=== PATIENT | female | born 1985 | race Asian ===

== ENCOUNTER 2024-03-18 07:47 | Outpatient (AMB) | payer OTHER, SELFPAY ==
[2024-03-18 08:01] VITALS: BP 116/84; PULSE 80; O2SAT 99; BMI 25.4
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
== END 2024-03-18 08:46 | disposition home or self-care (01) ==
DX: J45.909 Unspecified asthma, uncomplicated (principal); R20.0 Anesthesia of skin; R20.2 Paresthesia of skin; M54.9 Dorsalgia, unspecified; N92.0 Excessive and frequent menstruation with regular cycle
CPT/HCPCS: 99203

== ENCOUNTER 2024-03-19 07:47 | Outpatient (REF) | payer OTHER, SELFPAY ==
--- NOTE | ~2024-03-19 | XR_ITS ---
EXAMINATION: XR LUMBOSACRAL SPINE CLINICAL INFORMATION: Back pain. COMPARISON: None available. TECHNIQUE: Three views of the lumbosacral spine. FINDINGS: The vertebral bodies and posterior elements are normal. The disc spaces are preserved and the vertebral alignment is normal. The paraspinal soft tissues are normal. XR/XR lumbar spine 2-3V IMPRESSION: Unremarkable examination.
[2024-03-19 08:01] LABS: MANUAL DIFF FLAG NO
[2024-03-19 08:33] LABS: Basophils Absolute Auto 0.1 X10*3/uL (0.0-0.2); Basophils Percent Auto 1.2 % (0-2); Eosinophils Absolute Auto 0.3 X10*3/uL (0.0-0.4); Eosinophils Percent Auto 5.3 % (0-4); Hematocrit 39.8 % (37.0-47.0); Hemoglobin 13.6 g/dl (12.0-16.0); Imm Gran Abs Auto 0.01 X10*3/uL (0.00-0.03); Imm Gran Pct Auto 0.2 % (0.0-0.4); Lymphocytes Absolute Auto 2.7 X10*3/uL (1.2-4.9); Lymphocytes Percent Auto 45.9 % (20-40); Mean Corpuscular HGB Conc 34.2 g/dl (31.0-35.0); Mean Corpuscular Volume 87.9 fL (80.0-98.0); Mean Platelet Volume 8.1 fL (9.4-12.3); Monocytes Absolute Auto 0.4 X10*3/uL (0.1-1.2); Neutrophils Absolute Auto 2.4 x10*3/uL (2.0-8.3); Neutrophils Percent Auto 41.4 % (45-73); Platelet Count 325 X10*3/uL (160-400); Red Blood Count 4.53 X10*6/uL (4.20-5.50); Red Cell Distribution Width 11.9 % (11.0-16.0); White Blood Count 5.9 X10*3/uL (4.8-10.8)
[2024-03-19 09:04] LABS: Alanine Aminotransferase 18 U/L (0-31); Albumin Level 4.4 g/dL (3.5-5.0); Alkaline Phosphatase 44 U/L (39-117); Anion Gap 12 (12-20); Aspartate Amino Transferase 21 U/L (5-31); Bilirubin Total 0.4 mg/dL (0.0-1.0); Blood Urea Nitrogen 13 mg/dL (9-16); Calcium 8.9 mg/dL (8.4-10.2); Carbon Dioxide 23 mmol/L (22-29); Chloride 109 mmol/L (96-108); Cholesterol 175 mg/dL (<200); Estimated Glomerular Filt Rate > 60; Glucose Random 93 mg/dL (60-115); HDL Cholesterol 58 mg/dL (>40); LDL Cholesterol Calculated 106 mg/dL (<100); Potassium 3.7 mmol/L (3.3-5.1); Sodium 140 mmol/L (135-145); Total Protein 7.3 g/dL (6.5-8.0); Triglycerides 59 mg/dL (<150)
[2024-03-19 09:34] LABS: Folate 10.4 ng/mL (> or = 4.0); Vitamin B12 565 pg/mL (200-900)
[2024-03-19 09:45] LABS: Free T4 (Free Thyroxine) 0.99 ng/dL (0.71-1.85); Thyroid Stimulating Hormone 1.61 uIU/mL (0.32-4.0)
[2024-03-25 13:58] LABS: Vitamin D 25-OH, D2 <4 ng/mL; Vitamin D 25-OH, D3 18 ng/mL; Vitamin D 25-OH, Total 18 ng/mL (30-100)
== END 2024-03-19 07:48 | disposition home or self-care (01) ==
LOC: HO.XRAY 07:47
DX: Z00.00 Encounter for general adult medical examination without abnormal findings (principal); M54.9 Dorsalgia, unspecified
CPT/HCPCS: 36415; 72100; 80053; 80061; 82306; 82607; 82746; 84439; 84443; 85025

== ENCOUNTER 2024-04-13 11:19 | Outpatient (AMB) | payer OTHER, SELFPAY ==
[2024-04-13 12:00] VITALS: BP 126/70; BMI 26.2
--- NOTE | 2024-04-13 12:00 | A.OFFVIS_ITS ---
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 Resource Officer Required: No Information Interpreted: clinical only Business Intelligence Director: Business Intelligence Director Present Allergies house dust Allergy (Intermediate, Verified 04/13/24 12:01) Hives shellfish derived Allergy (Mild, Verified 04/13/24 12:01) Hives Medication List - Last Reconciled 04/13/24 by Flor Shaffer CNM albuterol sulfate 90 mcg/actuation 1 inh inhalation QID PRN beclomethasone dipropionate 40 mcg/actuation (Qvar RediHaler) 1 inh inhalation BID cholecalciferol (vitamin D3) 20 mcg (2 x 10 mcg (400 unit)) PO DAILY 30 days Is last menstrual period known: Yes Last menstrual period: 04/10/24 Do you need a note to return to daycare/school/sports/work: No HPI HPI 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 She has moved around world several places she was from the [facility] originally she lived in [facility] for a number of years then she was in different places in the [facility] they almost moved to [place] as well. She is here with her who wanted to be in the visit and was requested to wait outside. She cites a history of having had various surgeries in her life she said when she was young she and her boyfriend were using toys and she caught some infection and she was in the hospital for a while and she later had surgery when she was in [facility] that removed her right tube because there was infection and a cyst that had done something on the right side and then later when she was in [place] she had another surgery with a another doctor who said that there was evidence of past major infection and her left tube was removed. She would like to have a baby. They have moved here to help care for her 's mother. She was wondering what she could do to get and could she carry a baby and they were thinking of going back to the [facility] to an infertility clinic there that [place] couples go through. She said she has always had pain with intercourse all her life and her periods have while they been regular started to have more brown spotting at the end and this period was more crampy than usual. she is almost at the tail end of her period now. I insisted on seeing the patient alone and I asked her very directly if she was safe and she informed me that she was. [facility] Medical History (Updated 04/13/24 @ 13:18 by Flor Shaffer CNM) Asthma Surgical History (Updated 04/13/24 @ 13:18 by Flor Shaffer CNM) History of tubal ligation S/P removal of right ovary History of removal of cyst Family History Mother Heart disease Maternal Aunt Heart disease Paternal Uncle Lung cancer Social History Housing: House Patient Tobacco Use Status: Never used Tobacco service: No Current occupational status: employed Current occupation: Cognitive needs: No Hearing needs: No Vision needs: No Female Reproductive History Menstrual Age of Menarche: 14 Date of last menstrual period: 04/10/24 control method: permanent sterilization Total pregnancies: 0 History of abnormal pap smear: No (previous pap neg per patient,3 yrs ago) Physical Exam Vital Signs: Last Vital Signs BP 126/70 04/13/24 12:00 BMI result Body Mass Index 26.2 Const General: healthy appearing, comfortable, no acute distress, well developed and alert Nutritional Appearance: average body habitus Orientation/consciousness: patient oriented x3 Limitations: no limitations HEENT Head: Yes normocephalic Neck Neck: Yes normal visual inspection Chest Chest palpation & inspection: normal inspection of the chest Breast/axilla inspection: normal inspection of the breasts and normal inspection of the axillae Breast/axilla palpation: normal palpation of the breasts and normal palpation of the axillae Resp Effort & Inspection: normal respiratory effort GI Inspection: Yes normal to inspection, No Abdominal wall edema and No distended Palpation (GI): Soft to palpation and nontender Other: External exam within normal limits vagina pink and moist healthy appearing with very end of menses brown spotting. Cervix nulliparous pink smooth healthy mobile nontender Uterus is small retroverted mobile nontender adnexa not palpable but not enlarged good tone with Kegel General: Yes bladder normal to palpation External Female Exam: normal external appearance and normal appearance of the urethra Speculum Exam - Vagina: normal appearance of the vagina, normal palpation and normal vaginal discharge Speculum Exam - Cervix: normal appearance of the cervix, normal palpation and nontender Bimanual exam- vagina & uterus: normal bimanual exam, normal palpation, uterine size normal, bladder normal to palpation, consistency normal, normal palpation, uterine mobility normal, uterine shape normal, No Cervical tenderness present, non-tender and no cervical motion tenderness Bimanual Exam- Adnexa, other: normal adnexae, no masses, normal and No adnexal tenderness Neuro General: patient oriented x3 Assessment & Plan Assessment & Plan (1) Hx of bilateral salpingectomy: Comment: Right 2 and ovary removed in career years ago, then left to removed in [place] more recently a couple of years ago. Code(s): Z90.79 - Acquired absence of other genital organ(s) Category: Surgical (2) Hx of unilateral oophorectomy: Comment: Patient says her right to and right ovary were removed in [place] some years ago after multiple visits.. Code(s): Z90.721 - Acquired absence of ovaries, unilateral Category: Surgical (3) Patient desires : Comment: Sites regular cycles history of removal of both tubes for various reasons history of probable infections since she was young that infected tubes, Patient has her left ovary, seeking considering infertility clinic in [facility]. 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 Patient is comfortable with sex and exam. 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 Explained to patient and analisa picture. Code(s): N94.10 - Unspecified dyspareunia Category: Medical Plan -----Discussed in this visit the following: healthy balanced diet, regular and consistent exercise, getting recommended health screens, doing the best she can for her particular health concerns, kegel exercises, pap smear screening and followup recommendations, mammography screening and SBE, normal changes in cycles in her life stage--- . I recommend to the patient that she keep very careful track of her cycles and also explained the symptoms ovulation which she was aware of but did not understand it significance. She is sure to me that she was safe in the relationship and she wants to have a baby. Discussed the dyspareunia and the possible connection to retroverted uterus that is not necessarily a problem but just needs to be worked around.. I recommended to her that she take a multivitamin with folic acid every day. In preparation for potential future . For her future infertility care that she will be seeking I recommend she keep very careful track of the records so she can bring them with them to the [facility]. Pap smear was done as well as testing for other STIs. Mammograms would start at age 40. Coding Level of Care Code New Pt Prev Care 18-39yr([id number] Diagnoses Hx of bilateral salpingectomy Z90.79 Hx of unilateral oophorectomy Z90.721 Patient desires Z31.9 Dyspareunia, female N94.10
== END 2024-04-13 13:17 | disposition home or self-care (01) ==
LOC: HO.HWSM 11:19
PROVIDERS: Visit Provider Advanced Practice Midwife
DX: Z01.419 Encounter for gynecological examination (general) (routine) without abnormal findings (principal); N94.10 Unspecified dyspareunia
CPT/HCPCS: 99385

== ENCOUNTER 2024-04-13 11:19 | Outpatient (REF) | payer OTHER, SELFPAY ==
[2024-04-14 03:43] LABS: CT PCR NOT DETECTED (Not Detect.); NG PCR NOT DETECTED (Not Detect.)
[2024-04-14 10:34] LABS: Bacterial Vaginosis PCR NEGATIVE (Negative); Candida Group PCR NOT DETECTED (Not Detect); Candida glab krusei PCR NOT DETECTED (Not Detect); Trichomonas vaginalis PCR NOT DETECTED (Not Detect)
[2024-04-16 10:03] LABS: HPV mRNA E6/E7 Not Detected (Not Detected)
== END 2024-04-13 11:20 | disposition home or self-care (01) ==
LOC: HO.LAB 11:19
PROVIDERS: Visit Provider Advanced Practice Midwife
DX: Z12.4 Encounter for screening for malignant neoplasm of cervix (principal); Z11.51 Encounter for screening for human papillomavirus (HPV); N89.8 Other specified noninflammatory disorders of vagina
CPT/HCPCS: 0352U; 36415; 87491; 87591; 87624; 88175

== ENCOUNTER 2024-05-24 13:00 | Outpatient (RCR) | payer OTHER, SELFPAY ==
--- NOTE | 2024-05-14 11:31 | MHC.PT.EP ---
[facility] [place] Office [place] Office [place] Office [address] [phone] F: [phone] F: [phone] F: [phone] F: [phone] Physical Therapy Plan of Care Date of Evaluation: 05/14/24 Date of Surgery: Diagnosis: low back pain Assessment: Patient is a 38 year old R handed female who presents with s/s consistent with low back pain. She works with daily job demands including [employer] employee doing heavier lifting at times. Patient past medical history includes 2 foot surgeries. Current impairments include pain, posture, ROM, strength, flexibility, activity tolerance and functional mobility. Functional limitations include decreased ability to walk, bend, lift and squat. Patient is motivated with good rehab potential. Skilled PT will address impairments and functional limitations in order to achieve goals. Frequency and Duration: The patient will be seen 1x/week for 5 weeks Short Term Goals: I with HEP - 2 weeks AROM rotation 100% and pain free - 3 weeks s/s centralized - 3 weeks Wood Treating Inspector Goals: TTP absent - 5 weeks Max pain with ADLs 1/10 - 5 weeks Oswestry 4% or less -5 weeks Treatment Plan: Modalities to reduce pain, spasms and effusion. Manual therapy to restore motion and function. Therapeutic exercise to improve strength and flexibility. Neuromuscular re-education for posture and balance. Therapeutic activities to return to functional activities of daily living. Electronically signed by: Tal Ocampo PT Please sign and return to therapist. Thank you for your referral.
--- NOTE | 2024-11-12 10:54 | MHC.PT.DC ---
[facility] [place] [facility] [place] Office [place] Office [address] Mariela Wadsworth [address] [phone] F: [phone] F: [phone] F: [phone] F: [phone] Physical Therapy Discharge Report Diagnosis: low back pain Date of Surgery: Date of Evaluation: 05/14/24 Date of Discharge: Treatments to Date: 3 Cancellations to Date: No Shows to Date: Discharge Status: Independent with HEP Discharge Summary: 05/24/24: pt compliant with HEP. reviewed and all questions answered. she is leaving for the [facility] tomorrow and will be d/c to HEP at this time. 05/21/24: pt progressing well with skilled PT. no adverse reactions. we issued HEP and will re-assess on Friday ahead of departure to [facility]. Patient is a 38 year old R handed female who presents with s/s consistent with low back pain. She works with daily job demands including [employer] employee doing heavier lifting at times. Patient past medical history includes 2 foot surgeries. Current impairments include pain, posture, ROM, strength, flexibility, activity tolerance and functional mobility. Functional limitations include decreased ability to walk, bend, lift and squat. Patient is motivated with good rehab potential. Skilled PT will address impairments and functional limitations in order to achieve goals. Electronically signed by: Tal Ocampo, PT Please sign and return to therapist. Thank you for your referral.
== END 2024-11-12 10:57 | disposition home or self-care (01) ==
LOC: HO.PTCHIC 13:00
DX: M54.9 Dorsalgia, unspecified (principal)
CPT/HCPCS: 97110; 97162

== ENCOUNTER 2024-09-03 08:36 | Outpatient (AMB) | payer OTHER, SELFPAY ==
--- OUTSIDE RECORDS SUMMARY | 2024-09-03 08:45 | XMS_ITS ---
Author Organization [facility] Address [address] [address] Care Team Providers Care Vice Principal Name Role Phone ENID MCLEOD [phone] Medications Medication SIG (Take, Route, Frequency, Duration) Notes Start Date End Date Status Nitrofurantoin Monohyd Macro 100 MG 1 capsule Orally TWICE A DAY for 5 days 08/26/2023 Active Encounters Encounter Location Date Provider Diagnosis [facility] [address] [place] [address] 08/27/2023 ENID MCLEOD Dysuria R30.0 Assessments Encounter Date Diagnosis (ICD Code) Assessment Notes Treatment Notes Treatment Clinical Notes Section Notes 08/27/2023 Dysuria (ICD-10 - R30.0) Plan Of Treatment Medication Medication Name Sig Start Date Stop Date Notes Nitrofurantoin Monohyd Macro 100 MG 1 capsule Orally TWICE A DAY for 5 days 08/26/2023 Progress Notes * Dionna SALEHLyndaOB:[birth year] (37 yo F)Acc No.[id number]:08/27/2023 Patient:?Dionna Salehn :1985???Age:37 Y???Sex:Female Phone: Address:[place] [address] * Refills? Continue Nitrofurantoin Monohyd Macro Capsule, 100 MG, Orally, 10 Capsule, 1 capsule, TWICE A DAY, 5 days, Refills=0 * true * Date:? Generated for Chavo castro/Erasmo/eTransmitting on:?09/03/2024 08:45 AM EST
--- OUTSIDE RECORDS SUMMARY | 2024-09-03 08:46 | XMS_ITS ---
Author Organization [facility] Address [address] [place] [address] Care Team Providers Care Cheesemaker Helper Name Role Phone ENID MCLEOD [phone] Allergies No Known Allergies REASON FOR VISIT RL TO ASYNC + Sexual Health / Urinary Medications Medication SIG (Take, Route, Frequency, Duration) Notes Start Date End Date Status Nitrofurantoin Monohyd Macro 100 MG 1 capsule Orally TWICE A DAY for 5 days 08/26/2023 Active Montelukast Sodium 5 MG as directed Orally Active Social History Tobacco Use: Social History Observation Description Date Details (start date - stop date) Never Smoker NA - NA Tobacco Use/Smoking Question Answer Notes Are you a nonsmoker Vital Signs Height 60 in 08/26/2023 Weight 131 lbs 08/26/2023 BMI 25.58 kg/m2 08/26/2023 Patient Reported Normal Bloo d PresurePatient Reported Normal Temperature Encounters Encounter Location Date Provider Diagnosis [facility] [address] [place] [address] 08/26/2023 ENID CARCAMOCASTILLO Dysuria R30.0 Assessments Encounter Date Diagnosis (ICD Code) Assessment Notes Treatment Notes Treatment Clinical Notes Section Notes 08/26/2023 Dysuria (ICD-10 - R30.0) You may have urinary symptoms due to a Urinary Tract Infection, it is recommended to complete the urinalysis and start the antibiotic. Increase your fluid intake. If there is no improvement follow up in person for physical examination and further testing if symptoms worsen go to the ER. 08/26/2023 Other Follow the treatment plan as indicated by the provider. Take any medications as prescribed. If you have any questions about your prescription, ask the pharmacist or call our office. If your condition worsens, return to one of our local offices ([facility]), or go to the ER. Failure to seek timely care can result in , or disability. Risks, benefits, and side effects of medications (if any) discussed with patient. Patient agrees with treatment plan. The patient's condition was stable at the end of this televisit. Plan Of Treatment Medication Medication Name Sig Start Date Stop Date Notes Nitrofurantoin Monohyd Macro 100 MG 1 capsule Orally TWICE A DAY for 5 days 08/26/2023 Treatment Notes Assessment Notes Dysuria You may have urinary symptoms due to a Urinary Tract Infection, it is recommended to complete the urinalysis and start the antibiotic. Increase your fluid intake. If there is no improvement follow up in person for physical examination and further testing if symptoms worsen go to the ER. Other Follow the treatment plan as indicated by the provider. Take any medications as prescribed. If you have any questions about your prescription, ask the pharmacist or call our office. If your condition worsens, return to one of our local offices ([facility]), or go to the ER. Failure to seek timely care can result in , or disability. Pending Test Test Name Order Date URINALYSIS, COMPLETE W/REFLEX TO CULTURE (9769) 08/26/2023 Next Appt Details Follow Up: PCP, Reason: Progress Notes * Juancarlos SALEHAbdullhaiOB:[birth year] (37 yo F)Acc No.[id number]:08/26/2023 Patient:Candi Martinez Provider:?ENID MCLEOD MD :1985???Age:37 Y???Sex:Female D ate:08/26/2023 Phone: Address:[facility] [address], [facility], [id number] Subjective: * Chief Complaints: * ???RL TO MW ASYNC + Sexual H ealth / Urinary * HPI: ???TeleVisit Consent:? Patient's identification was confirmed and they were instructed that this visit is based on visual, audio information in addition to previous medical notes and diagnostics. As well it relies on the patient for information related to their physical well being, diagnosis and treatment. The patient acknowledges that they are not being recorded today, and they do not have permission to record this visit either. Patient verbalized understanding to all of the above. ???Constitutional:?Denies?night sweats, unexplained weight loss, fevers, dizziness, chest pain, lymph node swelling, snoring, depression, or insomnia.?TeleHealth Complaint History:? 37 year-old female, not , presents with mild pain when passing urine for a duration of 1 days. ?Medical History: Asthma and urinary tract infection. ?Medications: Montelukast 5mg Every other day. * ROS:?All Other Systems:?Review of Systems (ROS)?See HPI for details.?The patient is also suffering from flank pain (severity mild, duration 1 days, onset sudden, relative site unilateral, progression staying the same, dull, clinical course continual and not radiating to inguinal region), backache (severity moderate, duration 2 months, location lower back, upper back, onset gradual and not radiating to inguinal region), abdominal pain (severity moderate, duration 1 days, location general diffuse abdomen, onset sudden, sharp and relieved by lying on back), nausea (duration 1 weeks), pelvic pain (severity moderate), urgency to pass urine and chills. The patient denies the following: vomiting, bloody, or reddish colored urine and vaginal discharge. * Medical History:? * Surgical History:?Denies Pas t Surgical History * Hospitalization/Major Diagno stic Procedure:?Denies Past Hospitalization * Family History:? deniesDiabetic: Parent. * Social History:?Tobacco Use:?Tobacco Use/Smoking?Are you a?nonsmoker ???Drugs/Alcohol:?Do you drink alcohol?: No. * Medications:?TakingMonteluka st Sodium 5 MG Tablet Chewable as directed Orally Medication List reviewed and reconciled with the patientTaking Montelukast Sodium 5 MG Tablet Chewable as directed Orally Medication List reviewed and reconciled with the patient * Allergies:?N.K.D.A.no[Allerg ies Verified] Objective: * Vitals:?Ht: 60 in, Wt:131 lb s, BMI:25.58 Index Patient Reported Normal Blood Presure Patient Reported Normal Temperature. * Examination: ???General Examination: ?GENERAL APPEARANCE:?in no acute distress.?EARS:?hearing grossly intact.?NEUROLOGIC:?alert and oriented , speech clear.?PSYCH:?mood/affect normal, understands directions.? Assessment: * Assessment: 1.?Dysuria - R30.0 (Primary) ? Plan: * Treatment: 2.?Others? Notes: Follow the treatment plan as indicated by the provider. Take any medications as prescribed. If you have any questions about your prescription, ask the pharmacist or call our office. If your condition worsens, return to one of our local offices ([facility]), or go to the ER. Failure to seek timely care can result in , or disability.?? Clinical Notes:Risks, benefits, and side effects of medications (if any) discussed with patient. Patient agrees with treatment plan. The patient's condition was stable at the end of this televisit.?? * Procedure Codes:?05498 Offic e Visit, Est Pt., Level 2 Virtual Visit, Modifiers: 95 [id number] Office Visit, Est Pt., Level 2, delivered asynchronous, Modifiers: GQ CNFEE Convenience Fee * Follow Up:?PCP * Billing Information: * Visit Code:? S9083 [facility]. 50546 Office Visit, Est Pt., Level 2. Modifiers: GQ * Procedure Codes:? 94069 Office Visit, Est Pt., Level 2 Virtual Visit. Modifiers: 95 75639 Office Visit, Est Pt., Level 2, delivered asynchronous. Modifiers: GQ CNFEE Convenience Fee. Images * CD - -CForm - 08-26 - * Sign off status: Completed true * Provider:?ENID MCLEOD MD Date:?2023 Generated for Chavo castro/Erasmo/Macrina on:?09/03/2024 08:45 AM EST History and Physical Notes * HPI (History of Present Illness) Category Sub-Category Detail Notes Category Not es Constitutional Denies night sweats, un explained weight loss, fevers, dizziness, chest pain, lymph node swelling, snoring, depression, or insomnia TeleHealth Complaint History 37 year-old female, not , presents with mild pain when passing urine for a duration of 1 days. Medical History: Asthma and urinary tract infection. Medications: Montelukast 5mg Every other day. Examination Category Sub-Category Detail Notes Category Not es General Examination GENERAL APPEARANCE: in no acute di stress EARS: hearing grossly inta ct NEUROLOGIC: alert and oriented , speech clear PSYCH: mood/affect normal, understands directions
--- OUTSIDE RECORDS SUMMARY | 2024-09-03 08:46 | XMS_ITS | Patient Health Record ---
Author Organization [facility] Address [address] [place] [address] Support Name Relationship Address Phone Candi Kauffman Guarantor Unknown Unavaila ble Allergies No Known Allergies Reason For Referral No Information Medications Medication SIG (Take, Route, Frequency, Duration) [...] Question Answer Notes Are you a nonsmoker Plan Of Treatment Pending Test Test Name Order Date URINALYSIS, COMPLETE W/REFLEX TO CULTURE (3020) 08/26/2023 Insurance Providers Payer Name Payer Address Payer Phone Subscriber Number Group Number Insured Name Patient Relationship to Insured Coverage Start Date Coverage End Date [employer] [address] [address] [place] [address] [phone] [id number] Candi Pulliam Self - patient is the insured Medical (General) History Medical History History ICD Code Ovarian cysts 8 yrs ago Inactive asthma UTI
--- NOTE | 2024-09-03 08:52 | MHC.PC.OV ---
Vital Signs 09/03/24 08:54 Height 5 ft Weight 139 lb 4 oz BMI 27.2 BP 126/72 Blood Pressure Location Lt brachial Position Sitting Pulse 82 Pulse Source Pulse Oximeter Pulse Oximetry (%) 99 Oxygen Delivery Method Room Air Intake Visit Reasons: PE Intake Note: Patient is here today for a physical. Hcc Coders Required: No Medical Anthropology Director: Not Required per policy Accompanied by: Self / Same As Patient Allergies house dust Allergy (Intermediate, Verified 09/03/24 09:08) Hives shellfish derived Allergy (Mild, Verified 09/03/24 09:08) Hives Medication List - Last Reconciled 09/03/24 by Val Carrillo PA-C albuterol sulfate 90 mcg/actuation 1 inh inhalation QID PRN beclomethasone dipropionate 40 mcg/actuation (Qvar RediHaler) 1 inh PO BID cholecalciferol (vitamin D3) 20 mcg (2 x 10 mcg (400 unit)) PO DAILY 30 days Tobacco use date assessed: 09/03/24 Dental Screening Dental Screen Date: 09/03/24 Did you have a dental visit in the last 12 months?: No Did you have a dental problem in the last 6 months where you did not have access to dental care?: No Was dental information given to patient?: No HPI PE HPI Details 38-year-old female with past medical history of dyspareunia and asthma last seen 02/2024 coming in for annual exam.? In review of the notes patient was seen by [facility] 04/13/2024 for heavy and painful menses recommending multivitamin with folic acid for potential future and Pap smear was completed. Today she tells us she continues to have back pain primarily when lifting heavy objects. She is required to lift boxes that are upwards of 50 lb at her job and after work she will often have back pain that radiates down the right leg and upper back pain that radiates into bilateral arms. She denies any these symptoms at this time and states they typically come and go and worsen with lifting. Denies any chest pains or shortness of breath and does not feel this pain with walking only while lifting objects. She states she stands for long periods of time at work and this pain began when she started her new job. [facility] Medical History (Updated 09/03/24 @ 09:53 by Val Carrillo PA-C) Heavy menses Asthma Surgical History (Updated 09/03/24 @ 09:53 by Val Carrillo PA-C) Hx of bilateral salpingectomy Hx of unilateral oophorectomy S/P foot surgery, left History of tubal ligation S/P removal of right ovary History of removal of cyst Family History Mother Heart disease Maternal Aunt Heart disease Paternal Uncle Lung cancer Social History Housing: House Patient Tobacco Use Status: Never used Tobacco e-Cigarette/Vaping Use: Never Used Second Hand Smoke Exposure: No service: No Current occupational status: employed Current occupation: Cognitive needs: No Hearing needs: No Vision needs: Yes (Glasses) Female Reproductive History Menstrual Age of Menarche: 14 Questionnaire PHQ-9 Over the last 2 weeks, how often have you been bothered by any of the following problems? 1. Little interest or pleasure in doing things: not at all 2. Feeling down, depressed, or hopeless: not at all 3. Trouble falling or staying asleep, or sleeping too much: not at all 4. Feeling tired or having little energy: not at all 5. Poor appetite or overeating: not at all 6. Feeling bad about yourself - or that you are a failure or have let yourself or your family down: not at all 7. Trouble concentrating on things, such as reading the newspaper or watching television: not at all 8. Moving or speaking so slowly that other people could have noticed. Or the opposite - being so fidgety or restless that you have been moving around a lot more than usual: not at all 9. Thoughts that you would be better off or of hurting yourself in some way: not at all Total score: 0 Depression Screening Interpretation: Negative Depression Screening Done: Yes Source: Developed by Drs. Jude Keita, Teri Ellison, Nigel Lamar and colleagues, with an educational yakelin from [employer]. Thrive Questionnaire Date Thrive assessed: 09/03/24 I am a: Patient What is your living situation today?: I have a steady place to live Within the past 12 months, did the food you bought not last and you didn't have the money to get more?: I choose not to answer this question Within the past 12 months, did you worry whether your food would run out before you got money to buy more?: I choose not to answer this question Do you have trouble paying for medicines?: I choose not to answer this question Do you have trouble getting transportation to medical appointments?: No Do you have trouble paying your heating and electricity bill?: I choose not to answer this question Do you have trouble taking care of your child, family member or friend?: No Do you have trouble with day-to-day activities such as bathing, preparing meals, shopping, managing finances, etc.?: No Are you currently unemployed and looking for a job?: No Are you interested in more education?: No Please select the resources that you would like help with: None Currently or been in a relationship where the following occur: No concerns reported THRIVE Score: 0 AUDIT C Alcohol Use Questionnaire (AUDIT-C) 1. How often do you have a drink containing alcohol?: Monthly or less 2. How many drinks containing alcohol do you have on a typical day when you are drinking?: 1 or 2 3. How often do you have six or more drinks on one occasion?: Never Total Score: 1 SELMA-7 AMB Questionnaire SELMA-7 Date SELMA - 7 assessed: 09/03/24 Feeling nervous, anxious, or on edge: 0 = Not at all Not being able to stop or control worryin = Not at all Worrying too much about different things: 0 = Not at all Trouble relaxin = Not at all Being so restless that it is hard to sit still: 0 = Not at all Becoming easily annoyed or irritable: 0 = Not at all Feeling afraid as if something awful might happen: 0 = Not at all Total SELMA-7 score (0-4 normal; 5-9 mild; 10-14 moderate; 15-21 severe): 0 Source: Developed by Drs. Jude Keita, Teri Ellison, Nigel Lamar and colleagues, with an educational yakelin from [employer]. Review of Systems Const Denies body aches, Denies chills, Denies fever(s), Denies headache(s) and Denies poor appetite Eyes Reports no additional complaints ENT Denies dysphagia, Denies dizziness, Denies headache(s) and Denies odynophagia Card Denies chest pain, Denies syncope, Denies edema, Denies irregular heart rhythm, Denies lightheadedness and Denies dyspnea Resp Denies cough and Denies dyspnea GI Denies abdominal pain, Denies constipation, Denies dysphagia, Denies diarrhea, Denies nausea, Denies odynophagia and Denies vomiting Reports no additional complaints Musc Details: back pain that will occasionally radiate into the arms Reports abnormal gait and Reports back pain Skin/Breast Reports system reviewed and no additional complaints, except as documented Neuro Reports abnormal gait, Denies dizziness, Denies syncope and Denies headache(s) Psych Reports no additional complaints Physical exam (Primary Care) Vital Signs: Last Vital Signs Pulse 82 09/03/24 08:54 BP 126/72 09/03/24 08:54 Pulse Ox 99 09/03/24 08:54 Oxygen Delivery Method Room Air 09/03/24 08:54 BMI result Body Mass Index 27.2 Tobacco/Smoking Status: Tobacco use Status Tobacco use date assessed 09/03/24 09/03/24 08:55 Patient Tobacco Use Status Never used Tobacco 09/03/24 08:53 e-Cigarette/Vaping Use Never Used 09/03/24 08:55 PHQ-9: PHQ-9 Score PHQ-9: Total score 0 09/03/24 09:27 Depression Screening Interpretation: Negative Thrive Assessment: Date of Thrive Assessment Date Thrive assessed 09/03/24 09/03/24 08:55 Currently or been in a relationship where the following occur: No concerns reported Const General: cooperative, healthy appearing, comfortable and no acute distress Orientation/consciousness: patient oriented x3 HENMT Head: Yes normocephalic Ears: hearing grossly normal bilaterally General nose exam: Normal external nose present Eyes General: appearance normal, both eyes and all related structures Conjunctivae: conjunctivae normal Neck Neck: Yes full ROM and Yes no lymphadenopathy Resp Effort & Inspection: normal respiratory effort Auscultation: clear to auscultation bilaterally, no crackles, no rales, no rhonchi and no wheezes Cardio Rate: regular rate Rhythm: regular rhythm Back/Spine/Pelvis Other: Negative straight leg raise. No pain to palpation spine or paraspinal muscles. Sensation intact in bilateral upper and lower extremities Skin General skin exam: no rashes or lesions noted Neuro General: patient oriented x3 Gait exam (Neuro): Normal gait present Extrem General: Yes normal to inspection, Yes full ROM and No edema Psych Affect: normal affect Attitude: cooperative Insight: Good insight present (Psych) Judgement: Good judgement present (Psych) Office Procedures Flu Questionnaire Does the patient have a severe egg allergy?: No Does the patient have severe life threatening allergies?: No Does the patient have a fever or illness today?: No Has the patient ever had Guillain-Woodrow Syndrome?: No Has the patient ever had any past reaction to a flu shot?: No Immunizations Fluarix Triv 5617-7802 (PF) 45 mcg (15 mcg x 3)/0.5 mL IM syringe Performing Provider: Val Carrillo PA-C [facility] Administered by: ROMEL Gaona on 09/03/24 09:28 Dose Route Admin Location Dispensed Lot Number Expiration Date [facility] Technical Sales Support Manager 0.5 mL IM Left Deltoid 0.5 mL [id number] 02/21/25 [id number] [employer] VIS Given Date VIS Provided VIS Publication Date 09/03/24 Single Vaccine 21 Eligibility Eligibility Date Funding Source Not [facility] Eligible 09/03/24 Private Coding Level of Care Code Est Pt Prev Care 18-39y(93809) Diagnoses Hypersomnolence G47.10 Cervical cancer screening Z12.4 Dyspareunia, female N94.10 Patient desires Z31.9 Annual physical exam Z00.00 Numbness and tingling in both hands R20.0; R20.2 Back pain M54.9 Asthma J45.909 Assessment & Plan Assessment & Plan (1) Hypersomnolence: Code(s): G47.10 - Hypersomnia, unspecified Category: Medical Plan: Patient complaining of excessive fatigue she states when she sleeps about 6 hours she will feel more awake than if she sleeps for longer periods of time. Ordered for home sleep study for further evaluation. (2) Cervical cancer screening: Comment: 04/13/2024 Pap is negative with negative HPV. Code(s): Z12.4 - Encounter for screening for malignant neoplasm of cervix Category: Medical Plan: Follows with gynecology and up-to-date on Pap smears. (3) Dyspareunia, female: Comment: Lifelong. Patient is comfortable with sex and exam. 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 Explained to patient and analisa picture. Code(s): N94.10 - Unspecified dyspareunia Category: Medical Plan: Currently following with gynecology for this concern. (4) Patient desires : Comment: Sites regular cycles history of removal of both tubes for various reasons history of probable infections since she was young that infected tubes, Patient has her left ovary, seeking considering infertility clinic in [facility]. Code(s): Z31.9 - Encounter for procreative management, unspecified Category: Medical Plan: Advised by Gynecology start folate and multivitamin in preparation for IVF. (5) Annual physical exam: Code(s): Z00.00 - Encounter for general adult medical examination without abnormal findings Category: Medical Plan: Patient is up-to-date on all recommended routine screenings and vaccinations for her age. Flu shot was given today and blood work is up-to-date. Continue to encourage healthy diet and regular exercise. (6) Numbness and tingling in both hands: Code(s): R20.0 - Anesthesia of skin; R20.2 - Paresthesia of skin Category: Medical Plan: Patient complaining of occasional numbness and tingling in bilateral hands that is exacerbated by heavy lifting. Ordered for cervical spine x-ray. Advised patient to work on activity modification and not to lift over 50 lb and monitor symptoms (7) Back pain: Code(s): M54.9 - Dorsalgia, unspecified Category: Medical Plan: Complaining of back pain that will occasionally radiate into the arms and into the legs. Pain began after having an epidural for a foot surgery. May be related to placement of epidural however ordered for thoracic spine x-ray. Lumbar spine x-ray has been normal in the past. Advised patient to modify activities at work and provided with note to suggest against lifting over 50 lb. Advised patient to have good supportive shoes at work and continue to monitor symptoms. We will follow up in 3 months (8) Asthma: Code(s): J45.909 - Unspecified asthma, uncomplicated Category: Medical Plan: Asthma currently controlled on present medications. Continue on albuterol as needed. Avoid triggers such as allergies. Plan This note was constructed using voice recognition software. While every effort has been made to ensure accuracy and dispatcher tugboat, still areas may have been included sometimes these areas may affect the content or meeting of the given symptoms. Total time spent caring for the patient today was 30 minutes. This includes time spent before the visit reviewing the chart, time spent during the visit, and time spent after the visit and documentation. Orders: Orders XR cervical spine 2V Today M54.2 - Cervicalgia XR thoracic spine 2V Today M54.9 - Dorsalgia, unspecified RT home sleep study Today G47.10 - Hypersomnia, unspecified Influenza [id number] Immunization Today Z23 - Encounter for immunization Medications: New folic acid 1 mg PO DAILY 90 tabs 0RF
[2024-09-03 08:54] VITALS: BP 126/72; PULSE 82; O2SAT 99; BMI 27.2
== END 2024-09-03 09:33 | disposition home or self-care (01) ==
DX: Z00.00 Encounter for general adult medical examination without abnormal findings (principal); G47.10 Hypersomnia, unspecified; N94.10 Unspecified dyspareunia; R20.0 Anesthesia of skin; R20.2 Paresthesia of skin; M54.9 Dorsalgia, unspecified; J45.909 Unspecified asthma, uncomplicated; Z23 Encounter for immunization

== ENCOUNTER 2024-09-03 08:36 | Outpatient (REF) | payer OTHER, SELFPAY ==
--- NOTE | ~2024-09-03 | XR_ITS ---
EXAMINATION: XR CERVICAL SPINE XR THORACIC SPINE CLINICAL INFORMATION: Neck pain, back pain. COMPARISON: None available. TECHNIQUE: 3 views of the cervical spine, 3 views of the thoracic spine. FINDINGS: CERVICAL SPINE: Bone mineralization is normal. Straightening of the normal cervical lordosis. Mild spondylosis in the [id number] cervical spine. Cervical disc space heights are preserved. Minimal posterior subluxation of C3 on C4. THORACIC SPINE: Very minimal rightward curvature of the thoracic spine. Mild degenerative changes in the [id number] thoracic spine. XR/XR cervical spine 2V IMPRESSION: 1. Mild cervical spondylosis as detailed above. 2. Mild degenerative changes in the thoracic spine. Electronically signed by: Sarah Nieves MD 09/06/2024 08:43 AM ANDERS
--- NOTE | ~2024-09-03 | XR_ITS ---
EXAMINATION: XR CERVICAL SPINE XR THORACIC SPINE CLINICAL INFORMATION: Neck pain, back pain. COMPARISON: None available. TECHNIQUE: 3 views of the cervical spine, 3 views of the thoracic spine. FINDINGS: CERVICAL SPINE: Bone mineralization is normal. Straightening of the normal cervical lordosis. Mild spondylosis in the [id number]-[id number]-[id number] cervical spine. Cervical disc space heights are preserved. Minimal posterior subluxation of C3 on C4. THORACIC SPINE: Very minimal rightward curvature of the thoracic spine. Mild degenerative changes in the bde-[id number]-[id number] thoracic spine. XR/XR thoracic spine 2V IMPRESSION: 1. Mild cervical spondylosis as detailed above. 2. Mild degenerative changes in the thoracic spine. Electronically signed by: Sarah Nieves MD 09/06/2024 08:43 AM ANDERS
== END 2024-09-03 08:37 | disposition home or self-care (01) ==
LOC: HO.XRAY 08:36
DX: Z00.01 Encounter for general adult medical examination with abnormal findings (principal); Z23 Encounter for immunization; G47.10 Hypersomnia, unspecified; N94.10 Unspecified dyspareunia; R20.0 Anesthesia of skin; R20.2 Paresthesia of skin; M54.9 Dorsalgia, unspecified; M54.2 Cervicalgia; J45.909 Unspecified asthma, uncomplicated
CPT/HCPCS: 72040; 72070; 90471; 90656; 96127

== ENCOUNTER 2024-10-05 08:55 | Outpatient (REF) | payer OTHER, SELFPAY ==
--- NOTE | 2024-10-05 09:00 | EMG_ITS ---
FINDINGS: Bilateral median and ulnar motor and sensory studies were performed. Bilateral radial sensory studies were performed and paraspinal muscles were tested with a needle. IMPRESSION: Mild bilateral mid cervical radiculopathy. There was no evidence of entrapment neuropathy. MD KALYANI Lake/[place] / [phone]
== END 2024-10-05 08:56 | disposition home or self-care (01) ==
LOC: HO.NEURO 08:55
DX: R20.0 Anesthesia of skin (principal); R20.2 Paresthesia of skin
CPT/HCPCS: 95886; 95911

== ENCOUNTER 2024-10-08 08:23 | Outpatient (AMB) | payer OTHER, SELFPAY ==
--- NOTE | 2024-10-08 08:26 | MHC.PC.OV ---
Vital Signs 10/08/24 08:28 Height 5 ft Weight 141 lb 6 oz BMI 27.6 BP 124/86 Blood Pressure Location Lt brachial Position Sitting Pulse 90 Pulse Source Pulse Oximeter Pulse Oximetry (%) 98 Oxygen Delivery Method Room Air Intake Visit Reasons: discuss disability paperwork Allergies house dust Allergy (Intermediate, Verified 10/08/24 08:26) Hives shellfish derived Allergy (Mild, Verified 10/08/24 08:26) Hives Medication List - Last Reconciled 10/08/24 by Val Carrillo PA-C albuterol sulfate 90 mcg/actuation 1 inh inhalation QID PRN beclomethasone dipropionate 40 mcg/actuation (Qvar RediHaler) 1 inh PO BID cholecalciferol (vitamin D3) 20 mcg (2 x 10 mcg (400 unit)) PO DAILY 30 days folic acid 1 mg PO DAILY gabapentin 100 mg PO BEDTIME hydrocortisone 1% (Anti-Itch (hydrocortisone)) 1 appl topical TID PRN hydroxyzine HCl 10 mg PO BEDTIME meloxicam 15 mg PO DAILY Tobacco use date assessed: 10/08/24 Dental Screening Dental Screen Date: 10/08/24 Did you have a dental visit in the last 12 months?: No Did you have a dental problem in the last 6 months where you did not have access to dental care?: No Was dental information given to patient?: Patient declined HPI discuss disability paperwork HPI Details 38-year-old female with past medical history of dyspareunia and asthma last seen 08/2024 coming in for follow up on cervical pain. Recent bilateral upper extremity EMG showing mild bilateral mid cervical radiculopathy without evidence of entrapment neuropathy. Patient continues to neck pain that radiates down bilateral arms worsening with overuse. She states at work even lifting things less than 10 lb she will have pain if it is prolonged activity. She also continues to have low back pain that radiates down the right leg has been PT in the past in April without good relief. She states the pain has been pretty manageable but in the more recent days has been intense pain. Initially she did not identify an inciting event however today she mentions and 2020 while lifting pallets she felt a popping sensation in her back followed by pain but did not have this followed up as the pain was mild at the time. She also mentions having a rash that recently developed on her abdomen has been present for the last week. She did recently switch her laundry detergent to a new sent which could be the culprit. [facility] Medical History Heavy menses Asthma Surgical History Hx of bilateral salpingectomy Hx of unilateral oophorectomy S/P foot surgery, left History of tubal ligation S/P removal of right ovary History of removal of cyst Family History Mother Heart disease Maternal Aunt Heart disease Paternal Uncle Lung cancer Social History Housing: House Patient Tobacco Use Status: Never used Tobacco e-Cigarette/Vaping Use: Never Used Second Hand Smoke Exposure: No service: No Current occupational status: employed Current occupation: Cognitive needs: No Hearing needs: No Vision needs: Yes (Glasses) Female Reproductive History Menstrual Age of Menarche: 14 Questionnaire PHQ-9 Over the last 2 weeks, how often have you been bothered by any of the following problems? 1. Little interest or pleasure in doing things: not at all 2. Feeling down, depressed, or hopeless: not at all 3. Trouble falling or staying asleep, or sleeping too much: not at all 4. Feeling tired or having little energy: not at all 5. Poor appetite or overeating: not at all 6. Feeling bad about yourself - or that you are a failure or have let yourself or your family down: not at all 7. Trouble concentrating on things, such as reading the newspaper or watching television: not at all 8. Moving or speaking so slowly that other people could have noticed. Or the opposite - being so fidgety or restless that you have been moving around a lot more than usual: not at all 9. Thoughts that you would be better off or of hurting yourself in some way: not at all Total score: 0 Depression Screening Interpretation: Negative Depression Screening Done: Yes Source: Developed by Drs. Jude Keita, Teri Ellison, Nigel Lamar and colleagues, with an educational yakelin from [employer] Thrive Questionnaire Date Thrive assessed: 10/08/24 I am a: Patient What is your living situation today?: I have a steady place to live Within the past 12 months, did the food you bought not last and you didn't have the money to get more?: I choose not to answer this question Within the past 12 months, did you worry whether your food would run out before you got money to buy more?: I choose not to answer this question Do you have trouble paying for medicines?: I choose not to answer this question Do you have trouble getting transportation to medical appointments?: No Do you have trouble paying your heating and electricity bill?: I choose not to answer this question Do you have trouble taking care of your child, family member or friend?: No Do you have trouble with day-to-day activities such as bathing, preparing meals, shopping, managing finances, etc.?: No Are you currently unemployed and looking for a job?: No Are you interested in more education?: No Please select the resources that you would like help with: None Currently or been in a relationship where the following occur: No concerns reported THRIVE Score: 0 AUDIT C Alcohol Use Questionnaire (AUDIT-C) 1. How often do you have a drink containing alcohol?: Monthly or less 2. How many drinks containing alcohol do you have on a typical day when you are drinking?: 1 or 2 3. How often do you have six or more drinks on one occasion?: Never Total Score: 1 SELMA-7 AMB Questionnaire SELMA-7 Date SELMA - 7 assessed: 09/03/24 Feeling nervous, anxious, or on edge: 0 = Not at all Not being able to stop or control worryin = Not at all Worrying too much about different things: 0 = Not at all Trouble relaxin = Not at all Being so restless that it is hard to sit still: 0 = Not at all Becoming easily annoyed or irritable: 0 = Not at all Feeling afraid as if something awful might happen: 0 = Not at all Total SELMA-7 score (0-4 normal; 5-9 mild; 10-14 moderate; 15-21 severe): 0 Source: Developed by Drs. Jude Keita, Teri Ellison, Nigel Lamar and colleagues, with an educational yakelin from [employer] Review of Systems Const Denies body aches, Denies chills, Denies fever(s), Denies headache(s) and Denies poor appetite Eyes Reports no additional complaints ENT Denies dizziness and Denies headache(s) Card Denies chest pain, Denies irregular heart rhythm, Denies lightheadedness and Denies dyspnea Resp Denies cough and Denies dyspnea GI Denies abdominal pain, Denies constipation, Denies diarrhea, Denies nausea and Denies vomiting Reports no additional complaints Musc Reports as per HPI, Reports abnormal gait and Reports back pain Skin/Breast Reports system reviewed and no additional complaints, except as documented Neuro Reports abnormal gait, Denies dizziness and Denies headache(s) Psych Reports no additional complaints Physical exam (Primary Care) Vital Signs: Last Vital Signs Pulse 90 10/08/24 08:28 BP 124/86 10/08/24 08:28 Pulse Ox 98 10/08/24 08:28 Oxygen Delivery Method Room Air 10/08/24 08:28 BMI result Body Mass Index 27.6 Tobacco/Smoking Status: Tobacco use Status Tobacco use date assessed 10/08/24 10/08/24 08:31 Patient Tobacco Use Status Never used Tobacco 10/08/24 08:31 e-Cigarette/Vaping Use Never Used 10/08/24 08:31 PHQ-9: PHQ-9 Score PHQ-9: Total score 0 10/08/24 11:10 Depression Screening Interpretation: Negative Thrive Assessment: Date of Thrive Assessment Date Thrive assessed 10/08/24 10/08/24 08:31 Currently or been in a relationship where the following occur: No concerns reported Const General: cooperative, healthy appearing, comfortable and no acute distress Orientation/consciousness: patient oriented x3 HENMT Head: Yes normocephalic Ears: hearing grossly normal bilaterally General nose exam: Normal external nose present Eyes General: appearance normal, both eyes and all related structures Conjunctivae: conjunctivae normal Neck Neck: Yes full ROM and Yes no lymphadenopathy Resp Effort & Inspection: normal respiratory effort Auscultation: clear to auscultation bilaterally, no crackles, no rales, no rhonchi and no wheezes Cardio Rate: regular rate Rhythm: regular rhythm Back/Spine/Pelvis Other: Tenderness to palpation over right lumbar paraspinal muscles. Positive right straight leg raise Skin Other: Raised, red maculopapular rash over abdomen worse around areas contact with clothing. Not present on extremities General skin exam: no rashes or lesions noted Neuro General: patient oriented x3 Gait exam (Neuro): Normal gait present Extrem Other: Lower extremity strength, sensation and pulses intact in bilateral lower extremities. Pain elicited with extension flexion of right knee General: Yes normal to inspection, Yes full ROM and No edema Psych Affect: normal affect Attitude: cooperative Insight: Good insight present (Psych) Judgement: Good judgement present (Psych) Coding Level of Care Code Est Pt Level 4 (77329) Diagnoses Acute right-sided low back pain with right-sided sciatica M54.41 Back pain laterality: right Chronicity: acute Sciatica laterality: sciatica of right side Sciatica presence: with sciatica Cervical radiculopathy M54.12 Hives L50.9 Assessment & Plan Assessment & Plan (1) Low back pain: Code(s): M54.50 - Low back pain, unspecified Category: Medical Qualifiers: Back pain laterality: right Chronicity: acute Sciatica laterality: sciatica of right side Sciatica presence: with sciatica Qualified Code(s): M54.41 - Lumbago with sciatica, right side Plan: Patient having low back pain that has been persistent for several months she underwent physical therapy in April without good relief. She continues to use meloxicam and Tylenol as needed for her pain to palpation of the right paraspinal muscles and positive straight leg raise on the right side. X-ray taken February 2024 was negative for acute abnormality. Given worsening of the pain and lack of improvement with physical therapy and conservative measures paired with concern for radiculopathy I recommend orthopedic evaluation and lumbar spine MRI. Orders are placed today. I also ordered for inflammatory markers to look for underlying cause for diffuse back pain. All of which were negative. (2) Cervical radiculopathy: Code(s): M54.12 - Radiculopathy, cervical region Category: Medical Plan: Patient having mild bilateral cervical radiculopathy as evidenced on EMG. Given these findings and intensity of pain recommending orthopedic evaluation as well as MRI to further look for underlying cause. Orders were placed today advised patient to continue to use meloxicam and Tylenol as needed for pain. Also given gabapentin for nighttime pain given her symptoms are often present first thing in the morning and worsen throughout the day. I also gave patient is strict recurrent or cut precautions given the concern for possible disc herniation or back injury. No lifting over 20 lb and other restrictions reflected in paperwork provided to employer. (3) Hives: Code(s): L50.9 - Urticaria, unspecified Category: Medical Plan: Patient having presence of hives on abdomen and areas of contact with her clothing. Likely related to her recent change in fabric softener. Advised patient to switch fabric softener and soaps to unscented variation and given hydroxyzine and topical hydrocortisone for itching. If symptoms worsen or do not improve please reach out to the office. Can consider oral steroids if symptoms do not improve. If patient develops any other symptoms such as fever patient is here to the office Plan This note was constructed using voice recognition software. While every effort has been made to ensure accuracy and thaw shed heater tender, still areas may have been included sometimes these areas may affect the content or meeting of the given symptoms. Total time spent caring for the patient today was 20 minutes. This includes time spent before the visit reviewing the chart, time spent during the visit, and time spent after the visit and documentation. Orders: Orders REJI Reflex Titer and Pattern Today M54.50 - Low back pain, unspecified MR lumbar spine wo con Today M54.50 - Low back pain, unspecified Erythrocyte Sedimentation Rate Today M54.50 - Low back pain, unspecified C Reactive Protein Today M54.50 - Low back pain, unspecified Referrals Orthopedics Referral M54.12 - Radiculopathy, cervical region, M54.50 - Low back pain, unspecified Medications: New meloxicam 15 mg PO DAILY 30 tabs 0RF M54.50 - Low back pain, unspecified hydroxyzine HCl 10 mg PO BEDTIME 14 tabs 0RF itching hydrocortisone 1% (Anti-Itch (hydrocortisone)) 1 appl topical TID PRN 28.35 grams 0RF skin irritation gabapentin 100 mg PO BEDTIME 30 caps 0RF M54.50 - Low back pain, unspecified Discontinued meloxicam Discontinued Reason: Patient no longer taking 7.5 mg PO DAILY PRN 30 tabs 0RF pain
[2024-10-08 08:28] VITALS: BP 124/86; PULSE 90; O2SAT 98; BMI 27.6
--- OUTSIDE RECORDS SUMMARY | 2024-10-08 08:40 | XMS_ITS ---
Author Organization [facility] Address [address] [place] [address] Care Team Providers Care Veneer Jointer Operator Name Role Phone ENID MCLEOD [phone] Medications Medication SIG (Take, Route, Frequency, Duration) Notes Start Date End Date Status Nitrofurantoin Monohyd Macro 100 MG 1 capsule Orally TWICE A DAY for 5 days 08/26/2023 Active Encounters Encounter Location Date Provider Diagnosis [facility] [address] [place] [address] 08/27/2023 ENID MCLEOD Dysuria R30.0 Assessments Encounter Date Diagnosis (ICD Code) Assessment Notes Treatment Notes Treatment Clinical Notes Section Notes 08/27/2023 Dysuria (ICD-10 - R30.0) Plan Of Treatment Medication Medication Name Sig Start Date Stop Date Notes Nitrofurantoin Monohyd Macro 100 MG 1 capsule Orally TWICE A DAY for 5 days 08/26/2023 Progress Notes * Dionna SALEHLyndaOB:[birth year] (37 yo F)Acc No.[id number]:08/27/2023 Patient:?Dionna Salehn :1985???Age:37 Y???Sex:Female Phone: Address:[place] [address] * Refills? Continue Nitrofurantoin Monohyd Macro Capsule, 100 MG, Orally, 10 Capsule, 1 capsule, TWICE A DAY, 5 days, Refills=0 * true * Date:? Generated for Chavo castro/Erasmo/eTransmitting on:?10/08/2024 08:40 AM EST
--- OUTSIDE RECORDS SUMMARY | 2024-10-08 08:41 | XMS_ITS | Patient Health Record ---
Author Organization [facility] Address [address] [place] [address] Support Name Relationship Address Phone Candi Kauffman [...] Date Coverage End Date [employer] [address] [address] [place] [address] [phone] [id number] Candi Pulliam Self - patient is the insured Medical (General) History Medical History History ICD Code Ovarian cysts 8 yrs ago Inactive asthma UTI
--- OUTSIDE RECORDS SUMMARY | 2024-10-08 08:41 | XMS_ITS ---
Author Organization [facility] Address [address] [place] [address] Care Team Providers Care Sales Receptionist Name Role Phone ENID MCLEOD [phone] Allergies No Known Allergies REASON FOR VISIT [...] [facility] [address] [place] [address] 08/26/2023 ENID MCLEOD Dysuria R30.0 Assessments Encounter Date [...] return to one of our local offices ([facility]), or go to the ER. [...] return to one of our local offices ([facility]), or go to the ER. Failure to seek timely care can result in , or disability. Pending Test Test Name Order Date URINALYSIS, COMPLETE W/REFLEX TO CULTURE (6920) 08/26/2023 Next Appt Details Follow Up: PCP, Reason: Progress Notes * Juancarlos SALEHAbdullahiOB:[birth year] (37 yo F)Acc No.[id number]:08/26/2023 Patient:Candi Martinez Provider:?ENID MCLEOD MD :1985???Age:37 Y???Sex:Female D ate:08/26/2023 Phone: Address:[facility] [address], [place], [id number] Subjective: * Chief Complaints: * ???RL TO [...] the end of this televisit.?? * Procedure Codes:?33483 Offic e Visit, Est Pt., Level 2 Virtual Visit, Modifiers: 95 93488 Office Visit, Est Pt., Level 2, delivered asynchronous, Modifiers: GQ CNFEE Convenience Fee * Follow Up:?PCP * Billing Information: * Visit Code:? S9083 [facility]. 51035 Office Visit, Est Pt., Level 2. Modifiers: GQ * Procedure Codes:? 47165 Office Visit, Est Pt., Level 2 Virtual Visit. Modifiers: 95 94603 Office Visit, Est Pt., Level 2, delivered asynchronous. Modifiers: GQ CNFEE Convenience Fee. Images * CD - -CForm - 08-26 - * Sign off status: Completed true * Provider:?ENID MCLEOD MD Date:?2023 Generated for Chavo castro/Erasmo/Macrina on:?10/08/2024 08:40 AM EST History and Physical Notes * [...]
== END 2024-10-08 09:22 | disposition home or self-care (01) ==
DX: M54.41 Lumbago with sciatica, right side (principal); M54.12 Radiculopathy, cervical region; L50.9 Urticaria, unspecified

== ENCOUNTER 2024-10-08 08:23 | Outpatient (REF) | payer OTHER, SELFPAY ==
[2024-10-08 10:13] LABS: C Reactive Protein < 0.10 mg/dL (< or = 0.50)
[2024-10-08 10:16] LABS: Erythrocyte Sedimentation Rate 7 MM/HR (0-20)
[2024-10-12 13:54] LABS: Anti Nuclear Antibody Screen NEGATIVE (NEGATIVE)
== END 2024-10-08 08:24 | disposition home or self-care (01) ==
LOC: HO.LAB 08:23
DX: M54.50 Low back pain, unspecified (principal)
CPT/HCPCS: 36415; 85652; 86038; 86140

== ENCOUNTER → 2024-10-13 19:09 | Outpatient (BNV) | payer OTHER, SELFPAY | PROVIDERS: Visit Provider Radiology Diagnostic Radiology | DX: M54.50 Low back pain, unspecified (principal); M47.812 Spondylosis without myelopathy or radiculopathy, cervical region | CPT/HCPCS: 72141; 72148 ==

== ENCOUNTER 2024-10-13 19:11 | Outpatient (REF) | payer OTHER, SELFPAY ==
--- NOTE | ~2024-10-13 | MR_ITS ---
CLINICAL HISTORY: M47.812 - Spondylosis without myelopathy or radiculopathy, cervical region MR cervical spine without gadolinium Comparison: None Findings: Cervical spine straightening. Normal alignment without evidence of acute fracture or marrow infiltration. Visualized brain is unremarkable. C4/C5: Mild left neural foraminal stenosis. Otherwise no evidence of central canal or neural foraminal stenosis. Visualized soft tissues are unremarkable. IMPRESSION: No evidence of significant central canal or neural foraminal stenosis. This document has been electronically signed by: Radha Ambriz MD on 10/14/2024 11:56:04
--- NOTE | ~2024-10-13 | MR_ITS ---
CLINICAL HISTORY: M54.50 - Low back pain, unspecified MR lumbar spine without gadolinium Comparison: None Findings: Normal alignment without acute fracture. Conus terminates at L1/L2. Normal signal intensity of the visualized cord on the T2 weighted images, with high signal intensity of the central aspect of the cord on the STIR sequence. Although finding may be artifactual, evaluation of the thoracic spine MRI may be of value. Otherwise unremarkable appearance of the visualized cord, conus medullaris and cauda equina. Disc dehydration of the two lower lumbar levels. Posterior annular fissure at L5/S1. Mild Modic type 1 changes at L4/L5. No evidence of significant central canal, lateral recess, or neural foraminal stenosis. Small subcentimeter right posterior paraspinal synovial/ganglion seen at L2/L3 level. Otherwise unremarkable visualized paravertebral soft tissues and abdomen. IMPRESSION: Normal signal intensity of the visualized cord on the T2 weighted images, with high signal intensity of the central aspect of the cord on the STIR sequence. Although finding may be artifactual, evaluation of the thoracic spine MRI may be of value. Posterior annular fissure at L5/S1. Mild Modic type 1 changes at L4/L5. No evidence of significant central canal, lateral recess, or neural foraminal stenosis. This document has been electronically signed by: Radha Ambriz MD on 10/14/2024 11:29:48
--- OUTSIDE RECORDS SUMMARY | 2024-10-13 19:22 | XMS_ITS ---
Author Organization [facility] Address [address] [place] [address] Care Team Providers Care Compliance Engineer Products Name Role Phone ENID MCLEOD [phone] Allergies No Known Allergies REASON FOR VISIT [...] Temperature Encounters Encounter Location Date Provider Diagnosis [facility] [address] [place] [address] 08/26/2023 ENID CARCAMOCASTILLO Dysuria R30.0 Assessments Encounter [...] return to one of our local offices ([facility]), or go to the ER. [...] return to one of our local offices ([facility]), or go to the ER. Failure to seek timely care can result in , or disability. Pending Test Test Name Order Date URINALYSIS, COMPLETE W/REFLEX TO CULTURE (3079) 08/26/2023 Next Appt Details Follow Up: PCP, Reason: Progress Notes * Juancarlos SALEHAbdullahiOB:[birth year] (37 yo F)Acc No.[id number]:08/26/2023 Patient:Candi Martinez Provider:?ENID MCLEOD MD :1985???Age:37 Y???Sex:Female D ate:08/26/2023 Phone: Address:[facility] [address], [facility], [id number] Subjective: * Chief Complaints: * ???RL TO [...] the end of this televisit.?? * Procedure Codes:?72495 Offic e Visit, Est Pt., Level 2 Virtual Visit, Modifiers: 95 48346 Office Visit, Est Pt., Level 2, delivered asynchronous, Modifiers: GQ CNFEE Convenience Fee * Follow Up:?PCP * Billing Information: * Visit Code:? S9083 [facility]. 38957 Office Visit, Est Pt., Level 2. Modifiers: GQ * Procedure Codes:? 99059 Office Visit, Est Pt., Level 2 Virtual Visit. Modifiers: 95 11215 Office Visit, Est Pt., Level 2, delivered asynchronous. Modifiers: GQ CNFEE Convenience Fee. Images * CD - -CForm - 08-26 - * Sign off status: Completed true * Provider:?ENID MCLEOD MD Date:?2023 Generated for Chavo castro/Erasmo/Macrina on:?10/13/2024 07:21 PM EST History and Physical Notes * HPI [...]
--- OUTSIDE RECORDS SUMMARY | 2024-10-13 19:22 | XMS_ITS | Patient Health Record ---
Author Organization [facility] Address [address] [place] [address] Support Name Relationship Address Phone Candi Kauffman [...] Date Coverage End Date [employer] [address] [address] [place] [address] [id number] Candi Pulliam Self - patient is the insured Medical (General) History Medical History History ICD Code Ovarian cysts 8 yrs ago Inactive asthma UTI
== END 2024-10-13 19:12 | disposition home or self-care (01) ==
LOC: HO.MRI 19:11
DX: M54.50 Low back pain, unspecified (principal); M47.812 Spondylosis without myelopathy or radiculopathy, cervical region; M54.12 Radiculopathy, cervical region
CPT/HCPCS: 72141; 72148

== ENCOUNTER → 2024-10-18 19:19 | Outpatient (BNV) | payer OTHER, SELFPAY | PROVIDERS: Visit Provider Radiology Diagnostic Radiology | DX: M47.812 Spondylosis without myelopathy or radiculopathy, cervical region (principal); M47.814 Spondylosis without myelopathy or radiculopathy, thoracic region; R93.7 Abnormal findings on diagnostic imaging of other parts of musculoskeletal system | CPT/HCPCS: 72146 ==

== ENCOUNTER 2024-10-18 19:20 | Outpatient (REF) | payer OTHER, SELFPAY ==
--- NOTE | ~2024-10-18 | MR_ITS ---
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 Bony alignment is otherwise anatomic. No concerning bone marrow signal alteration. No fracture. No cord signal alteration. Specifically, the area of concern in the patient's MRI of the lumbar spine from October 13, 2024 is not evident on these images. Disc space heights are well preserved. Bony central canal is widely patent. IMPRESSION: Negative MRI of the thoracic spine. This document has been electronically signed by: Raymond Dickens MD on 10/19/2024 10:13:45
--- OUTSIDE RECORDS SUMMARY | 2024-10-18 19:29 | XMS_ITS | Patient Health Record ---
Author Organization [facility] Address [address] [place] [address] Support Name Relationship Address Phone Candi Kauffman [...] Date Coverage End Date [employer] [address] [address] [place] [address] [id number] Candi Pulliam Self - patient is the insured Medical (General) History Medical History History ICD Code Ovarian cysts 8 yrs ago Inactive asthma UTI
--- OUTSIDE RECORDS SUMMARY | 2024-10-18 19:29 | XMS_ITS ---
Author Organization [facility] Address [address] [place] [address] Care Team Providers Care Database Marketing Specialist Name Role Phone ENID MCLEOD [phone] Allergies No Known Allergies REASON FOR VISIT [...] Temperature Encounters Encounter Location Date Provider Diagnosis [facility] [address] [place] [address] 08/26/2023 ENID CARCAMOCASTILLO Dysuria R30.0 Assessments Encounter [...] return to one of our local offices ([facility]), or go to the ER. [...] return to one of our local offices ([facility]), or go to the ER. Failure to seek timely care can result in , or disability. Pending Test Test Name Order Date URINALYSIS, COMPLETE W/REFLEX TO CULTURE (3937) 08/26/2023 Next Appt Details Follow Up: PCP, Reason: Progress Notes * Juancarlos SALEHAbdullahiOB:[birth year] (37 yo F)Acc No.[id number]:08/26/2023 Patient:Candi Martinez Provider:?ENID MCLEOD MD :1985???Age:37 Y???Sex:Female D ate:08/26/2023 Phone: Address:[facility] [facility] [employer] [address], [facility], [id number] Subjective: * Chief Complaints: * ???RL TO [...] the end of this televisit.?? * Procedure Codes:?84219 Offic e Visit, Est Pt., Level 2 Virtual Visit, Modifiers: 95 36828 Office Visit, Est Pt., Level 2, delivered asynchronous, Modifiers: GQ CNFEE Convenience Fee * Follow Up:?PCP * Billing Information: * Visit Code:? S9083 [facility] 23689 Office Visit, Est Pt., Level 2. Modifiers: GQ * Procedure Codes:? 01070 Office Visit, Est Pt., Level 2 Virtual Visit. Modifiers: 95 13677 Office Visit, Est Pt., Level 2, delivered asynchronous. Modifiers: GQ CNFEE Convenience Fee. Images * CD - -CForm - 08-26 - * Sign off status: Completed true * Provider:?ENID MCLEOD MD Date:?2023 Generated for Chavo castro/Erasmo/Macrina on:?10/18/2024 07:29 PM EST History and Physical Notes * [...]
--- OUTSIDE RECORDS SUMMARY | 2024-10-18 19:29 | XMS_ITS ---
Author Organization [facility] Address [address] [place] [address] Care Team Providers Care Utility System Repairer Name Role Phone ENID MCLEOD [phone] Medications Medication SIG (Take, Route, Frequency, Duration) Notes Start Date End Date Status Nitrofurantoin Monohyd Macro 100 MG 1 capsule Orally TWICE A DAY for 5 days 08/26/2023 Active Encounters Encounter Location Date Provider Diagnosis [facility] [address] [place] [address] 08/27/2023 ENID MCLEOD Dysuria R30.0 Assessments Encounter Date Diagnosis (ICD Code) Assessment Notes Treatment Notes Treatment Clinical Notes Section Notes 08/27/2023 Dysuria (ICD-10 - R30.0) Plan Of Treatment Medication Medication Name Sig Start Date Stop Date Notes Nitrofurantoin Monohyd Macro 100 MG 1 capsule Orally TWICE A DAY for 5 days 08/26/2023 Progress Notes * Dionna SALEHLyndaOB:[birth year] (37 yo F)Acc No.[id number]:08/27/2023 Patient:?Dionna Salehn :1985???Age:37 Y???Sex:Female Phone: Address:[place] [address] * Refills? Continue Nitrofurantoin Monohyd Macro Capsule, 100 MG, Orally, 10 Capsule, 1 capsule, TWICE A DAY, 5 days, Refills=0 * true * Date:? Generated for Chavo castro/Erasmo/eTransmitting on:?10/18/2024 07:29 PM EST
== END 2024-10-18 19:21 | disposition home or self-care (01) ==
LOC: HO.MRI 19:20
DX: M47.814 Spondylosis without myelopathy or radiculopathy, thoracic region (principal); R93.7 Abnormal findings on diagnostic imaging of other parts of musculoskeletal system
CPT/HCPCS: 72146

== ENCOUNTER → 2024-10-19 12:38 | Outpatient (REF) | payer OTHER, SELFPAY ==
--- OUTSIDE RECORDS SUMMARY | 2024-10-19 15:20 | XMS_ITS | Patient Health Record ---
Author Organization [facility] Address [address] [place] [address] Support Name Relationship Address Phone Candi Kauffman [...] Date Coverage End Date [employer] [address] [address] [place] [address] [id number] Candi Pulliam Self - patient is the insured Medical (General) History Medical History History ICD Code Ovarian cysts 8 yrs ago Inactive asthma UTI
--- OUTSIDE RECORDS SUMMARY | 2024-10-19 15:20 | XMS_ITS ---
Author Organization [facility] Address [address] [place] [address] Care Team Providers Care Painter Apprentice Name Role Phone ENID MCLEOD [phone] Medications Medication SIG (Take, Route, Frequency, Duration) Notes Start Date End Date Status Nitrofurantoin Monohyd Macro 100 MG 1 capsule Orally TWICE A DAY for 5 days 08/26/2023 Active Encounters Encounter Location Date Provider Diagnosis [facility] [address] [place] [address] 08/27/2023 ENID MCLEOD Dysuria R30.0 Assessments Encounter Date Diagnosis (ICD Code) Assessment Notes Treatment Notes Treatment Clinical Notes Section Notes 08/27/2023 Dysuria (ICD-10 - R30.0) Plan Of Treatment Medication Medication Name Sig Start Date Stop Date Notes Nitrofurantoin Monohyd Macro 100 MG 1 capsule Orally TWICE A DAY for 5 days 08/26/2023 Progress Notes * Dionna SALEHLyndaOB:[birth year] (37 yo F)Acc No.[id number]:08/27/2023 Patient:?Dionna Salehn :1985???Age:37 Y???Sex:Female Phone: Address:[place] [address] * Refills? Continue Nitrofurantoin Monohyd Macro Capsule, 100 MG, Orally, 10 Capsule, 1 capsule, TWICE A DAY, 5 days, Refills=0 * true * Date:? Generated for Chavo castro/Erasmo/eTransmitting on:?10/19/2024 03:20 PM EST
--- OUTSIDE RECORDS SUMMARY | 2024-10-19 15:21 | XMS_ITS ---
Author Organization [facility] Address [address] [address] Care Team Providers Care Fan Blade Aligner Name Role Phone ENID MCLEOD [phone] Allergies No Known Allergies REASON FOR VISIT [...] Temperature Encounters Encounter Location Date Provider Diagnosis [facility] [address] [place] [address] 08/26/2023 ENID CARCAMOCASTILLO Dysuria R30.0 Assessments Encounter [...] return to one of our local offices ([facility]), or go to the ER. [...] return to one of our local offices ([facility]), or go to the ER. Failure to seek timely care can result in , or disability. Pending Test Test Name Order Date URINALYSIS, COMPLETE W/REFLEX TO CULTURE (5696) 08/26/2023 Next Appt Details Follow Up: PCP, Reason: Progress Notes * Juancarlos SALEHAbdullahiOB:[birth year] (37 yo F)Acc No.[id number]:08/26/2023 Patient:Candi Martinez Provider:?ENID MCLEOD MD :1985???Age:37 Y???Sex:Female D ate:08/26/2023 Phone: Address:[facility] [address], [facility], [phone] Subjective: * Chief Complaints: * ???RL TO [...] the end of this televisit.?? * Procedure Codes:?27948 Offic e Visit, Est Pt., Level 2 Virtual Visit, Modifiers: 95 15095 Office Visit, Est Pt., Level 2, delivered asynchronous, Modifiers: GQ CNFEE Convenience Fee * Follow Up:?PCP * Billing Information: * Visit Code:? S9083 [facility]. 00087 Office Visit, Est Pt., Level 2. Modifiers: GQ * Procedure Codes:? 86391 Office Visit, Est Pt., Level 2 Virtual Visit. Modifiers: 95 12799 Office Visit, Est Pt., Level 2, delivered asynchronous. Modifiers: GQ CNFEE Convenience Fee. Images * CD - -CForm - 08-26 - * Sign off status: Completed true * Provider:?ENID MCLEOD MD Date:?2023 Generated for Chavo castro/Erasmo/Macrina on:?10/19/2024 03:20 PM EST History and Physical Notes * [...]
== END ==
LOC: HO.SL 12:38
DX: G47.10 Hypersomnia, unspecified (principal)
CPT/HCPCS: 95806

== ENCOUNTER → 2024-10-19 12:49 | Outpatient (BNV) | payer OTHER, SELFPAY | PROVIDERS: Visit Provider Internal Medicine | DX: R06.83 Snoring (principal); G47.10 Hypersomnia, unspecified | CPT/HCPCS: 95806 ==

== ENCOUNTER 2024-11-09 14:55 | Outpatient (AMB) | payer OTHER, SELFPAY ==
--- NOTE | 2024-11-09 15:00 | A.OFFPC_ITS ---
Vital Signs 11/09/24 15:02 Height 5 ft Weight 138 lb 6 oz BMI 27.0 BP 100/60 Blood Pressure Location Lt brachial Position Sitting Pulse 81 Pulse Source Pulse Oximeter Temp 97.3 F Temp Source Temporal Artery Scan Pulse Oximetry (%) 99 Oxygen Delivery Method Room Air Intake Visit Reasons: discuss change to fmla document Intake Note: Patient is here to follow up on Change to FMLA . Meat Pickler Required: No Architectural Administrative Assistant: Not Required per policy Accompanied by: Self / Same As Patient Allergies house dust Allergy (Intermediate, Verified 11/09/24 15:02) Hives shellfish derived Allergy (Mild, Verified 11/09/24 15:02) Hives Medication List - Last Reconciled 11/09/24 by Val Carrillo PA-C albuterol sulfate 90 mcg/actuation 1 inh inhalation QID PRN beclomethasone dipropionate 40 mcg/actuation (Qvar RediHaler) 1 inh PO BID cholecalciferol (vitamin D3) 20 mcg (2 x 10 mcg (400 unit)) PO DAILY 30 days folic acid 1 mg PO DAILY gabapentin 100 mg PO BEDTIME hydrocortisone 1% (Anti-Itch (hydrocortisone)) 1 appl topical TID PRN hydroxyzine HCl 10 mg PO BEDTIME meloxicam 15 mg PO DAILY Tobacco use date assessed: 11/09/24 Dental Screening Dental Screen Date: 10/08/24 HPI discuss change to fmla document HPI Details 38-year-old female with past medical his tory of dyspareunia and asthma last seen 09/2024 coming in for follow up on cervical pain.? At her last visit patient was referred to orthopedics. Patient completed cervical and lumbar spine which were both normal however lumbar spine showed posterior annular fissure at L5/S1 and intensity on the T2 weighted images recommending thoracic MRI.? Thoracic MRI completed completely normal. She describes her cervical pain as causing arm symptoms and discomfort, with past physical therapy causing considerable discomfort. Attempted treatments include gabapentin, offering partial relief, and meloxicam, minimally effective for prolonged relief. The pain increases with physical exertions and specific postures that demand prolonged overhead effort. The patient is preparing to undergo physical therapy sessions, having scheduled an appointment for tomorrow, with flexibility in determining therapy frequency based on response. Disease management and procedural options, like spinal injections, hinge on therapy progress. She is out [place] [facility] sports on Friday plan to start with physical therapy and graduate to injections if needed. Physical therapy starts for tomorrow for her. [facility] Medical History Heavy menses Asthma Surgical History Hx of bilateral salpingectomy Hx of unilateral oophorectomy S/P foot surgery, left History of tubal ligation S/P removal of right ovary History of removal of cyst Family History Mother Heart disease Maternal Aunt Heart disease Paternal Uncle Lung cancer Social History Housing: House Patient Tobacco Use Status: Never used Tobacco e-Cigarette/Vaping Use: Never Used Second Hand Smoke Exposure: No service: No Current occupational status: employed Current occupation: Cognitive needs: No Hearing needs: No Vision needs: Yes (Glasses) Female Reproductive History Menstrual Age of Menarche: 14 Questionnaire Thrive Questionnaire Date Thrive assessed: 10/08/24 SELMA-7 AMB Questionnaire SELMA-7 Date SELMA - 7 assessed: 09/03/24 Source: Developed by Drs. Jude Keita, Teri Ellison, Nigel Lamar and colleagues, with an educational yakelin from [employer]. Review of Systems Const Denies body aches, Denies chills and Denies fever(s) Eyes Reports no additional complaints ENT Reports no additional complaints Card Denies chest pain, Denies lightheadedness and Denies dyspnea Resp Denies dyspnea GI Reports no additional complaints Reports no additional complaints Musc Reports no additional complaints and Denies abnormal gait Skin/Breast Reports system reviewed and no additional complaints, except as documented Neuro Denies abnormal gait Psych Reports no additional complaints Physical exam (Primary Care) Vital Signs: Last Vital Signs Temp 97.3 F 11/09/24 15:02 Pulse 81 11/09/24 15:02 BP 100/60 11/09/24 15:02 Pulse Ox 99 11/09/24 15:02 Oxygen Delivery Method Room Air 11/09/24 15:02 BMI result Body Mass Index 27.0 Tobacco/Smoking Status: Tobacco use Status Tobacco use date assessed 11/09/24 11/09/24 15:07 Patient Tobacco Use Status Never used Tobacco 11/09/24 15:02 e-Cigarette/Vaping Use Never Used 11/09/24 15:02 Thrive Assessment: Date of Thrive Assessment Date Thrive assessed 10/08/24 11/09/24 15:02 Const General: cooperative, healthy appearing, comfortable and no acute distress Orientation/consciousness: patient oriented x3 HENMT Head: Yes normocephalic Ears: hearing grossly normal bilaterally General nose exam: Normal external nose present Eyes General: appearance normal, both eyes and all related structures Conjunctivae: conjunctivae normal Neck Neck: Yes full ROM and Yes no lymphadenopathy Resp Effort & Inspection: normal respiratory effort Auscultation: clear to auscultation bilaterally, no crackles, no rales, no rhonchi and no wheezes Cardio Rate: regular rate Rhythm: regular rhythm Skin General skin exam: no rashes or lesions noted Neuro General: patient oriented x3 Gait exam (Neuro): Normal gait present Extrem General: Yes normal to inspection, Yes full ROM and No edema Psych Affect: normal affect Attitude: cooperative Insight: Good insight present (Psych) Judgement: Good judgement present (Psych) Coding Level of Care Code Est Pt Level 3 (31066) Diagnoses Infertility, female N97.9 Acute right-sided low back pain with right-sided sciatica M54.41 Chronicity: acute Back pain laterality: right Sciatica presence: with sciatica Sciatica laterality: sciatica of right side Cervical radiculopathy M54.12 Assessment & Plan Assessment & Plan (1) Infertility, female: Code(s): N97.9 - Female infertility, unspecified Category: Medical Plan: A referral to [facility] is initiated to assess suitable infertility treatment options, considering her conditions and insurance context. (2) Low back pain: Code(s): M54.50 - Low back pain, unspecified Category: Medical Qualifiers: Chronicity: acute Back pain laterality: right Sciatica presence: with sciatica Sciatica laterality: sciatica of right side Qualified Code(s): M54.41 - Lumbago with sciatica, right side Plan: The patient will initiate physical therapy to address chronic cervical and lumbar pain, attending twice weekly pending efficacy review and possible adaptation in frequency. Continued use of gabapentin will remain central for pain management, while meloxicam's effectiveness might necessitate future assessment. Coordination with her acoustic intelligence specialist regarding possible spinal injections based on therapy response is advised. (3) Cervical radiculopathy: Code(s): M54.12 - Radiculopathy, cervical region Category: Medical Plan: The patient will initiate physical therapy to address chronic cervical and lumbar pain, attending twice weekly pending efficacy review and possible adaptation in frequency. Continued use of gabapentin will remain central for pain management, while meloxicam's effectiveness might necessitate future assessment. Coordination with her acoustic intelligence specialist regarding possible spinal injections based on therapy response is advised. Plan This note was constructed using voice recognition software. While every effort has been made to ensure accuracy and marketing services coordinator, still areas may have been included sometimes these areas may affect the content or meeting of the given symptoms. Total time spent caring for the patient today was 20 minutes. This includes time spent before the visit reviewing the chart, time spent during the visit, and time spent after the visit and documentation. Patient was informed and verbally consented to the use of an ambient scribe for clinic note documentation during this visit. Orders: Referrals Infertility Reproductive Referral (female) N97.9 - Female infertility, unspecified
[2024-11-09 15:02] VITALS: BP 100/60; PULSE 81; TEMP 36.3; O2SAT 99; BMI 27.0
--- OUTSIDE RECORDS SUMMARY | 2024-11-09 17:46 | XMS_ITS ---
Author Organization [facility] Address [address] [place] [address] Care Team Providers Care Unclaimed Property Manager Name Role Phone ENID MCLEOD [phone] Medications Medication SIG (Take, Route, Frequency, Duration) Notes Start Date End Date Status Nitrofurantoin Monohyd Macro 100 MG 1 capsule Orally TWICE A DAY for 5 days 08/26/2023 Active Encounters Encounter Location Date Provider Diagnosis [facility] [address] [place] [address] 08/27/2023 ENID MCLEOD Dysuria R30.0 Assessments Encounter Date Diagnosis (ICD Code) Assessment Notes Treatment Notes Treatment Clinical Notes Section Notes 08/27/2023 Dysuria (ICD-10 - R30.0) Plan Of Treatment Medication Medication Name Sig Start Date Stop Date Notes Nitrofurantoin Monohyd Macro 100 MG 1 capsule Orally TWICE A DAY for 5 days 08/26/2023 Progress Notes * Dionna SALEHLyndaOB:[birth year] (37 yo F)Acc No.[id number]:08/27/2023 Patient:?Dionna Salehn :1985???Age:37 Y???Sex:Female Phone: Address:[place] [address] * Refills? Continue Nitrofurantoin Monohyd Macro Capsule, 100 MG, Orally, 10 Capsule, 1 capsule, TWICE A DAY, 5 days, Refills=0 * true * Date:? Generated for Chavo castro/Erasmo/eTransmitting on:?11/09/2024 05:46 PM EDT
--- OUTSIDE RECORDS SUMMARY | 2024-11-09 17:47 | XMS_ITS | Patient Health Record ---
Author Organization [facility] Address [address] [place] [address] Support Name Relationship Address Phone Candi Kauffman [...] Date Coverage End Date [employer] [address] [address] [place] [address] [id number] Candi Pulliam Self - patient is the insured Medical (General) History Medical History History ICD Code Ovarian cysts 8 yrs ago Inactive asthma UTI
--- OUTSIDE RECORDS SUMMARY | 2024-11-09 17:47 | XMS_ITS ---
Author Organization [facility] Address [address] [place] [address] Care Team Providers Care Multiple Drum Sander Helper Name Role Phone ENID MCLEOD [phone] Allergies No Known Allergies REASON FOR VISIT [...] [facility] [address] [place] [address] 08/26/2023 ENID CARCAMOCASTILLO Dysuria R30.0 Assessments Encounter [...] return to one of our local offices ([facility]), or go to the ER. [...] return to one of our local offices ([facility]), or go to the ER. Failure to seek timely care can result in , or disability. Pending Test Test Name Order Date URINALYSIS, COMPLETE W/REFLEX TO CULTURE (1866) 08/26/2023 Next Appt Details Follow Up: PCP, Reason: Progress Notes * Juancarlos SALEHAbdullahiOB:[birth year] (37 yo F)Acc No.[id number]:08/26/2023 Patient:Candi Martinez Provider:?ENID MCLEOD MD :1985???Age:37 Y???Sex:Female D ate:08/26/2023 Phone: Address:[facility] [address], [facility], [id number] Subjective: * Chief Complaints: * ???RL TO [...] the end of this televisit.?? * Procedure Codes:?87337 Offic e Visit, Est Pt., Level 2 Virtual Visit, Modifiers: 95 80834 Office Visit, Est Pt., Level 2, delivered asynchronous, Modifiers: GQ CNFEE Convenience Fee * Follow Up:?PCP * Billing Information: * Visit Code:? S9083 [facility] 20676 Office Visit, Est Pt., Level 2. Modifiers: GQ * Procedure Codes:? 62417 Office Visit, Est Pt., Level 2 Virtual Visit. Modifiers: 95 91821 Office Visit, Est Pt., Level 2, delivered asynchronous. Modifiers: GQ CNFEE Convenience Fee. Images * CD - -CForm - 08-26 - * Sign off status: Completed true * Provider:?ENID MCLEOD MD Date:?2023 Generated for Chavo castro/Erasmo/Macrina on:?11/09/2024 05:46 PM EDT History and Physical Notes * HPI (History [...]
== END 2024-11-09 15:27 | disposition home or self-care (01) ==
LOC: HO.HMCH 14:55
DX: N97.9 Female infertility, unspecified (principal); M54.41 Lumbago with sciatica, right side; M54.12 Radiculopathy, cervical region

== ENCOUNTER 2024-12-08 10:00 | Outpatient (RCR) | payer OTHER, SELFPAY ==
--- NOTE | 2024-11-10 11:00 | MHC.PT.EP ---
[facility] [place] [facility] [place] Office [place] Office [address] Mariela Wadsworth [address] [phone] F: [phone] F: [phone] F: [phone] F: [phone] Physical Therapy Plan of Care Date of Evaluation: 11/10/24 Date of Surgery: n/a Diagnosis: back pain Assessment: Patient is a 39 year old female presenting to PT with complaints of pain in her back - neck. Pt reports onset of pain began July 2024 due to insidious onset. She presents today with impairments in pain, neck ROM, posture, increase tissue density to UT. 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 Clinical presentation today is most consistent with signs and sx associated with back/neck pain and pt will benefit from skilled PT 2 week x 4 weeks to address the following problems and impairments noted upon evaluation: pain, neck ROM, posture, increase tissue density to UT. These problems limit the patient with the following functional activities: lifting, reaching, ADLs, work. The prescribed treatment plan of care is medically necessary. Co-morbidities of none were identified and taken into considerations of plan of care. Pt was educated on HEP, role of PT, prognosis, POC. Frequency and Duration: The patient will be seen 2 x week x 4 weeks Short Term Goals: Pt will demonstrate centralization of sx in 2 weeks. Pt will demonstrate improved posture as evidence by min to no cues during the session in 2 weeks. Pt will demonstrate decreased tissue density to B UT area in 2 weeks. [facility] Goals: Pt will demonstrate ability to reach and lift with min to no pain in 4 weeks for return to PLOF. Pt will demonstrate ability to work a full day with min to no pain in 4 weeks for return to PLOF. Treatment Plan: Modalities to reduce pain, spasms and effusion. Manual therapy to restore motion and function. Therapeutic exercise to improve strength and flexibility. Neuromuscular re-education for posture and balance. Therapeutic activities to return to functional activities of daily living. Electronically signed by: Hannah Obregon, PT, DPT, ATC Please sign and return to therapist. Thank you for your referral.
--- NOTE | 2024-12-08 10:44 | MHC.PT.DC ---
[facility] [place] [facility] [place] [facility] [place] [facility] [address] Mariela Wadsworth [address] [phone] F: [phone] F: [phone] F: [phone] F: [phone] Physical Therapy Discharge Report Diagnosis: back pain Date of Surgery: n/a Date of Evaluation: 11/10/24 Date of Discharge: 12/08/24 Treatments to Date: 8 Cancellations to Date: 0 No Shows to Date: 0 Discharge Status: Improved Function Independent with HEP Recommend MD Follow-up Discharge Summary: 12/08/2024: Pt stating her neck and arm pain is better as she is no longer having shooting pain or tingling. She is however continuing to have low back pain which appears to be a separate issue. At start of care she wanted her neck treated first so this is what we evaluated and focused on. She now is satisfied with her neck pain and would like to transition to her low back. She has a follow up scheduled with [facility] coming up and I advised her to discuss this ongoing low back pain with them to see if they feel she should be doing PT for this. Pt is in agreement with plan and has maximized skilled PT at this time for her neck. She is in agreement with d/c and understands importance of continuing with HEP for management of sx. Electronically signed by: Hannah Obregon, PT, DPT, ATC Please sign and return to therapist. Thank you for your referral.
== END 2024-12-08 10:44 | disposition home or self-care (01) ==
LOC: HO.PTCHIC 10:00
DX: M54.9 Dorsalgia, unspecified (principal)
CPT/HCPCS: 97110; 97140; 97162

== ENCOUNTER 2025-02-09 10:02 | Outpatient (AMB) | payer OTHER, SELFPAY ==
--- NOTE | 2025-02-09 10:12 | MHC.PC.OV ---
Vital Signs 02/09/25 10:14 Height 5 ft Weight 140 lb BMI 27.3 BP 130/64 Blood Pressure Location Lt brachial Position Sitting Pulse 79 Pulse Source Pulse Oximeter Temp 97.3 F Temp Source Temporal Artery Scan Pulse Oximetry (%) 99 Oxygen Delivery Method Room Air Intake Visit Reasons: early January back pain Intake Note: Patient is here to follow up on Back pain. Cloth Neutralizer Required: No Director Of Vocational Guidance: Not Required per policy Accompanied by: Self / Same As Patient Allergies house dust Allergy (Intermediate, Verified 02/09/25 10:15) Hives shellfish derived Allergy (Mild, Verified 02/09/25 10:15) Hives Medication List - Last Reconciled 02/09/25 by Val Carrillo PA-C albuterol sulfate 90 mcg/actuation 1 inh inhalation QID PRN beclomethasone dipropionate 40 mcg/actuation (Qvar RediHaler) 1 inh PO BID cholecalciferol (vitamin D3) 20 mcg (2 x 10 mcg (400 unit)) PO DAILY 30 days folic acid 1 mg PO DAILY gabapentin 100 mg PO BEDTIME hydrocortisone 1% (Anti-Itch (hydrocortisone)) 1 appl topical TID PRN hydroxyzine HCl 10 mg PO BEDTIME meloxicam 15 mg PO DAILY Tobacco use date assessed: 02/09/25 Dental Screening Dental Screen Date: 10/08/24 HPI early January back pain HPI Details 39-year-old female with past medical history of asthma last seen 10/2024 coming in for follow up. Presenting with lower back pain and burning pain. Neck and back pain has improved, but burning pain persists. Lower back pain worsens with heavy lifting at work. Gabapentin was initially taken three times daily as prescribed by [facility], causing drowsiness and nausea. She prefers the once daily dosing as there are less side effects but finds benefit with the higher dose. She is seeking a second opinion from orthopedics and will be seeing [facility] 03/21/2025. History of acne related to oily skin and improper cleansing. [facility] Medical History Heavy menses Asthma Surgical History Hx of bilateral salpingectomy Hx of unilateral oophorectomy S/P foot surgery, left History of tubal ligation S/P removal of right ovary History of removal of cyst Family History Mother Heart disease Maternal Aunt Heart disease Paternal Uncle Lung cancer Social History Housing: House Patient Tobacco Use Status: Never used Tobacco e-Cigarette/Vaping Use: Never Used Second Hand Smoke Exposure: No service: No Current occupational status: employed Current occupation: Cognitive needs: No Hearing needs: No Vision needs: Yes (Glasses) Female Reproductive History Menstrual Age of Menarche: 14 Questionnaire PHQ-9 Over the last 2 weeks, how often have you been bothered by any of the following problems? 1. Little interest or pleasure in doing things: more than half the days 2. Feeling down, depressed, or hopeless: more than half the days 3. Trouble falling or staying asleep, or sleeping too much: not at all 4. Feeling tired or having little energy: several days 5. Poor appetite or overeating: not at all 6. Feeling bad about yourself - or that you are a failure or have let yourself or your family down: not at all 7. Trouble concentrating on things, such as reading the newspaper or watching television: not at all 8. Moving or speaking so slowly that other people could have noticed. Or the opposite - being so fidgety or restless that you have been moving around a lot more than usual: not at all 9. Thoughts that you would be better off or of hurting yourself in some way: not at all Total score: 5 Depression Screening Interpretation: Positive Depression Screening Done: Yes Source: Developed by Drs. Jude Keita, eTri Ellison, Nigel Lamar and colleagues, with an educational yakelin from [employer]. Thrive Questionnaire Date Thrive assessed: 10/08/24 I am a: Patient What is your living situation today?: I have a steady place to live Within the past 12 months, did the food you bought not last and you didn't have the money to get more?: I choose not to answer this question Within the past 12 months, did you worry whether your food would run out before you got money to buy more?: I choose not to answer this question Do you have trouble paying for medicines?: I choose not to answer this question Do you have trouble getting transportation to medical appointments?: No Do you have trouble paying your heating and electricity bill?: No Do you have trouble taking care of your child, family member or friend?: I choose not to answer this question Do you have trouble with day-to-day activities such as bathing, preparing meals, shopping, managing finances, etc.?: No Are you currently unemployed and looking for a job?: No Are you interested in more education?: No Please select the resources that you would like help with: None Currently or been in a relationship where the following occur: No concerns reported THRIVE Score: 0 AUDIT C Alcohol Use Questionnaire (AUDIT-C) 1. How often do you have a drink containing alcohol?: Never Total Score: 0 SELMA-7 AMB Questionnaire SELMA-7 Date SELMA - 7 assessed: 09/03/24 Feeling nervous, anxious, or on edge: 0 = Not at all Not being able to stop or control worryin = Not at all Worrying too much about different things: 0 = Not at all Trouble relaxin = Not at all Being so restless that it is hard to sit still: 0 = Not at all Becoming easily annoyed or irritable: 0 = Not at all Feeling afraid as if something awful might happen: 0 = Not at all Total SELMA-7 score (0-4 normal; 5-9 mild; 10-14 moderate; 15-21 severe): 0 Source: Developed by Drs. Jude Keita, Teri Ellison, Nigel Lamar and colleagues, with an educational yakelin from [employer]. Review of Systems Const Denies body aches, Denies chills, Denies fever(s), Denies headache(s) and Denies poor appetite Eyes Reports no additional complaints ENT Denies dizziness and Denies headache(s) Card Denies chest pain and Denies dyspnea Resp Denies dyspnea Musc Reports no additional complaints and Denies abnormal gait Skin/Breast Reports system reviewed and no additional complaints, except as documented Neuro Denies abnormal gait, Denies dizziness and Denies headache(s) Psych Reports no additional complaints Physical exam (Primary Care) Vital Signs: Last Vital Signs Temp 97.3 F 02/09/25 10:14 Pulse 79 02/09/25 10:14 BP 130/64 02/09/25 10:14 Pulse Ox 99 02/09/25 10:14 Oxygen Delivery Method Room Air 02/09/25 10:14 BMI result Body Mass Index 27.3 Tobacco/Smoking Status: Tobacco use Status Tobacco use date assessed 02/09/25 02/09/25 10:15 Patient Tobacco Use Status Never used Tobacco 02/09/25 10:15 e-Cigarette/Vaping Use Never Used 02/09/25 10:15 PHQ-9: PHQ-9 Score PHQ-9: Total score 5 02/09/25 10:15 Depression Screening Interpretation: Positive Thrive Assessment: Date of Thrive Assessment Date Thrive assessed 10/08/24 02/09/25 10:15 Currently or been in a relationship where the following occur: No concerns reported Const General: cooperative, healthy appearing, comfortable and no acute distress Orientation/consciousness: patient oriented x3 HENMT Head: Yes normocephalic Ears: hearing grossly normal bilaterally General nose exam: Normal external nose present Eyes General: appearance normal, both eyes and all related structures Conjunctivae: conjunctivae normal Neck Neck: Yes full ROM and Yes no lymphadenopathy Resp Effort & Inspection: normal respiratory effort Auscultation: clear to auscultation bilaterally, no crackles, no rales, no rhonchi and no wheezes Cardio Rate: regular rate Rhythm: regular rhythm Skin General skin exam: no rashes or lesions noted Neuro General: patient oriented x3 Gait exam (Neuro): Normal gait present Extrem General: Yes normal to inspection, Yes full ROM and No edema Psych Affect: normal affect Attitude: cooperative Insight: Good insight present (Psych) Judgement: Good judgement present (Psych) Coding Level of Care Code Est Pt Level 3 (02099) Diagnoses Acute right-sided low back pain with right-sided sciatica M54.41 Back pain laterality: right Chronicity: acute Sciatica laterality: sciatica of right side Sciatica presence: with sciatica Cervical radiculopathy M54.12 Acne vulgaris L70.0 Acne type: acne vulgaris Assessment & Plan Assessment & Plan (1) Low back pain: Code(s): M54.50 - Low back pain, unspecified Category: Medical Qualifiers: Back pain laterality: right Chronicity: acute Sciatica laterality: sciatica of right side Sciatica presence: with sciatica Qualified Code(s): M54.41 - Lumbago with sciatica, right side Plan: Patient has completed physical therapy and does have improvement in her back pain. Continued use of gabapentin will remain central for pain management with dose increased to 300 mg. Continue to follow with [facility] and has 2nd evaluation through [facility] later this month. (2) Cervical radiculopathy: Code(s): M54.12 - Radiculopathy, cervical region Category: Medical Plan: See above (3) Acne: Code(s): L70.9 - Acne, unspecified Category: Medical Qualifiers: Acne type: acne vulgaris Qualified Code(s): L70.0 - Acne vulgaris Plan: Recommend the use of benzoyl peroxide based facial cleanser Plan The patient will continue with gabapentin, increasing the dose to 300 mg at bedtime to manage burning pain, while monitoring for adverse effects such as nausea and dizziness. She is advised to avoid lifting objects heavier than 50 pounds to prevent exacerbation of lower back pain. For acne management, the patient is instructed to use a benzoyl peroxide-based face wash, such as Panoxyl, and to avoid greasy foods. Follow-up with [facility] is scheduled for further evaluation of back and neck pain. This note was constructed using voice recognition software. While every effort has been made to ensure accuracy and nursing officer, still areas may have been included sometimes these areas may affect the content or meeting of the given symptoms. Total time spent caring for the patient today was 20 minutes. This includes time spent before the visit reviewing the chart, time spent during the visit, and time spent after the visit and documentation. Patient was informed and verbally consented to the use of an ambient scribe for clinic note documentation during this visit. Medications: New gabapentin 300 mg PO BEDTIME 90 caps 0RF Discontinued gabapentin Discontinued Reason: Patient no longer taking 100 mg PO BEDTIME 30 caps 0RF M54.50 - Low back pain, unspecified
[2025-02-09 10:14] VITALS: BP 130/64; PULSE 79; TEMP 36.3; O2SAT 99; BMI 27.3
--- OUTSIDE RECORDS SUMMARY | 2025-02-09 11:17 | XMS_ITS | Patient Health Record ---
Author Organization [facility] Address [address] [place] [address] Support Name Relationship Address Phone Candi Kauffman [...] Date Coverage End Date [employer] [address] [address] [place] [address] [id number] Candi Pulliam Self - patient is the insured Medical (General) History Medical History History ICD Code Ovarian cysts 8 yrs ago Inactive asthma UTI
== END 2025-02-09 11:07 | disposition home or self-care (01) ==
LOC: HO.HMCH 10:03
DX: M54.41 Lumbago with sciatica, right side (principal); M54.12 Radiculopathy, cervical region; L70.0 Acne vulgaris

== ENCOUNTER 2025-05-30 14:32 | Outpatient (AMB) | payer OTHER, SELFPAY ==
[2025-05-30 14:37] VITALS: BP 116/84; PULSE 84; TEMP 36.4; O2SAT 98; BMI 27.8
--- NOTE | 2025-05-30 14:37 | A.OFFPC_ITS ---
Vital Signs 05/30/25 14:37 Height 5 ft Weight 142 lb 8 oz BMI 27.8 BP 116/84 Blood Pressure Location Lt brachial Position Sitting Pulse 84 Pulse Source Pulse Oximeter Temp 97.5 F Temp Source Temporal Artery Scan Pulse Oximetry (%) 98 Oxygen Delivery Method Room Air Intake Visit Reasons: Weakness and nausea Allergies house dust Allergy (Intermediate, Verified 05/30/25 14:51) Hives metformin Allergy (Intermediate, Verified 05/30/25 14:51) Nausea shellfish derived Allergy (Mild, Verified 05/30/25 14:51) Hives Medication List - Last Reconciled 05/30/25 by Val Carrillo PA-C albuterol sulfate 90 mcg/actuation 1 inh inhalation QID PRN beclomethasone dipropionate 40 mcg/actuation (Qvar RediHaler) 1 inh PO BID cabergoline 0.25 mg PO 2XW cholecalciferol (vitamin D3) 20 mcg (2 x 10 mcg (400 unit)) PO DAILY 30 days folic acid 1 mg PO DAILY gabapentin 300 mg PO BEDTIME hydrocortisone 1% (Anti-Itch (hydrocortisone)) 1 appl topical TID PRN hydroxyzine HCl 10 mg PO BEDTIME metformin mg PO Tobacco use date assessed: 05/30/25 Dental Screening Dental Screen Date: 05/30/25 Did you have a dental visit in the last 12 months?: No Did you have a dental problem in the last 6 months where you did not have access to dental care?: No Was dental information given to patient?: No HPI Weakness and nausea HPI Details 39-year-old female with past medical his tory of asthma last seen 2024. Presenting for evaluation of prediabetes and elevated prolactin levels. Prediabetes Diagnosed with an A1c of 5.7% in February, the patient experiences heartburn and nausea attributed to metformin, leading to its discontinuation. Initially started on Metformin by her fertility specialist who she will no longer be seeing as she is going to try surrogacy. She was also found to have hyperprolactanemia and MRI ruled out prolactinoma but showed flare hyperintensities, possibly indicating early chronic microvascular ischemic changes. Reports left ear ringing when eating or exposed to loud noises, sometimes causing headaches and sometimes pulastile but this is not consistent. [facility] Medical History Heavy menses Asthma Surgical History Hx of bilateral salpingectomy Hx of unilateral oophorectomy S/P foot surgery, left History of tubal ligation S/P removal of right ovary History of removal of cyst Family History Mother Heart disease Maternal Aunt Heart disease Paternal Uncle Lung cancer Social History Housing: House Patient Tobacco Use Status: Never used Tobacco e-Cigarette/Vaping Use: Never Used Second Hand Smoke Exposure: No service: No Current occupational status: employed Current occupation: Cognitive needs: No Hearing needs: No Vision needs: Yes (Glasses) Female Reproductive History Menstrual Age of Menarche: 14 Questionnaire PHQ-9 Over the last 2 weeks, how often have you been bothered by any of the following problems? 1. Little interest or pleasure in doing things: more than half the days 2. Feeling down, depressed, or hopeless: more than half the days 3. Trouble falling or staying asleep, or sleeping too much: not at all 4. Feeling tired or having little energy: several days 5. Poor appetite or overeating: not at all 6. Feeling bad about yourself - or that you are a failure or have let yourself or your family down: not at all 7. Trouble concentrating on things, such as reading the newspaper or watching television: not at all 8. Moving or speaking so slowly that other people could have noticed. Or the opposite - being so fidgety or restless that you have been moving around a lot more than usual: not at all 9. Thoughts that you would be better off or of hurting yourself in some way: not at all Total score: 5 Depression Screening Interpretation: Positive Depression Screening Done: Yes Source: Developed by Drs. Jude Keita, Teri Ellison, Nigel Lamar and colleagues, with an educational yakelin from [employer]. Thrive Questionnaire Date Thrive assessed: 02/09/25 I am a: Patient What is your living situation today?: I have a steady place to live Within the past 12 months, did the food you bought not last and you didn't have the money to get more?: I choose not to answer this question Within the past 12 months, did you worry whether your food would run out before you got money to buy more?: I choose not to answer this question Do you have trouble paying for medicines?: I choose not to answer this question Do you have trouble getting transportation to medical appointments?: No Do you have trouble paying your heating and electricity bill?: No Do you have trouble taking care of your child, family member or friend?: I choose not to answer this question Do you have trouble with day-to-day activities such as bathing, preparing meals, shopping, managing finances, etc.?: No Are you currently unemployed and looking for a job?: No Are you interested in more education?: No Please select the resources that you would like help with: None Currently or been in a relationship where the following occur: No concerns reported THRIVE Score: 0 AUDIT C Alcohol Use Questionnaire (AUDIT-C) 1. How often do you have a drink containing alcohol?: Never 3. How often do you have six or more drinks on one occasion?: Never Total Score: 0 SELMA-7 AMB Questionnaire SELMA-7 Date SELMA - 7 assessed: 09/03/24 Feeling nervous, anxious, or on edge: 0 = Not at all Not being able to stop or control worryin = Not at all Worrying too much about different things: 0 = Not at all Trouble relaxin = Not at all Being so restless that it is hard to sit still: 0 = Not at all Becoming easily annoyed or irritable: 0 = Not at all Feeling afraid as if something awful might happen: 0 = Not at all Total SELMA-7 score (0-4 normal; 5-9 mild; 10-14 moderate; 15-21 severe): 0 Source: Developed by Drs. Jude Keita, Teri Ellison, Nigel Lamar and colleagues, with an educational yakelin from [employer]. Review of Systems Const Denies body aches, Denies chills, Denies fever(s), Denies headache(s) and Denies poor appetite Eyes Reports no additional complaints ENT Denies dizziness and Denies headache(s) Card Denies chest pain, Denies edema, Denies irregular heart rhythm, Denies lightheadedness and Denies dyspnea Resp Denies cough and Denies dyspnea GI Denies abdominal pain, Denies constipation, Reports dyspepsia, Reports he artburn, Denies diarrhea, Reports nausea and Reports vomiting Reports no additional complaints Musc Reports no additional complaints and Denies abnormal gait Skin/Breast Reports system reviewed and no additional complaints, except as documented Neuro Denies abnormal gait, Denies dizziness and Denies headache(s) Psych Reports no additional complaints Physical exam (Primary Care) Vital Signs: Last Vital Signs Temp 97.5 F 05/30/25 14:37 Pulse 84 05/30/25 14:37 BP 116/84 05/30/25 14:37 Pulse Ox 98 05/30/25 14:37 Oxygen Delivery Method Room Air 05/30/25 14:37 BMI result Body Mass Index 27.8 Tobacco/Smoking Status: Tobacco use Status Tobacco use date assessed 05/30/25 05/30/25 14:43 Patient Tobacco Use Status Never used Tobacco 05/30/25 14:43 e-Cigarette/Vaping Use Never Used 05/30/25 14:43 PHQ-9: PHQ-9 Score PHQ-9: Total score 5 05/30/25 14:50 Depression Screening Interpretation: Positive Thrive Assessment: Date of Thrive Assessment Date Thrive assessed 02/09/25 05/30/25 14:43 Currently or been in a relationship where the following occur: No concerns reported Const General: cooperative, healthy appearing, comfortable and no acute distress Orientation/consciousness: patient oriented x3 HENMT Head: Yes normocephalic Ears: hearing grossly normal bilaterally General nose exam: Normal external nose present Eyes General: appearance normal, both eyes and all related structures Conjunctivae: conjunctivae normal Neck Neck: Yes full ROM and Yes no lymphadenopathy Resp Effort & Inspection: normal respiratory effort Auscultation: clear to auscultation bilaterally, no crackles, no rales, no rhonchi and no wheezes Cardio Rate: regular rate Rhythm: regular rhythm Skin General skin exam: no rashes or lesions noted Neuro General: patient oriented x3 Gait exam (Neuro): Normal gait present Extrem General: Yes normal to inspection, Yes full ROM and No edema Psych Affect: normal affect Attitude: cooperative Insight: Good insight present (Psych) Judgement: Good judgement present (Psych) Coding Level of Care Code Est Pt Level 4 (14621) Diagnoses Acute right-sided low back pain with right-sided sciatica M54.41 Back pain laterality: right Chronicity: acute Sciatica laterality: sciatica of right side Sciatica presence: with sciatica Cervical radiculopathy M54.12 Pulsatile tinnitus of left ear H93.A2 Prediabetes R73.03 Hyperprolactinemia E22.1 Assessment & Plan Assessment & Plan (1) Low back pain: Code(s): M54.50 - Low back pain, unspecified Category: Medical Qualifiers: Back pain laterality: right Chronicity: acute Sciatica laterality: sciatica of right side Sciatica presence: with sciatica Qualified Code(s): M54.41 - Lumbago with sciatica, right side Plan: Patient has completed physical therapy and does have improvement in her back pain. Continued use of gabapentin will remain central for pain management with dose increased to 300 mg. (2) Cervical radiculopathy: Code(s): M54.12 - Radiculopathy, cervical region Category: Medical Plan: See above (3) Pulsatile tinnitus of left ear: Code(s): H93.A2 - Pulsatile tinnitus, left ear Category: Medical Plan: Recent MRI was negative for acute findings and did not reveal cause for tinn itus. At this time plan to obtain ENT consult and referral was placed. The tinnitus has been ongoing for several years. (4) Prediabetes: Code(s): R73.03 - Prediabetes Category: Medical Plan: The patient's A1c level is 5.7%, indicating prediabetes. Metformin was discontinued due to adverse effects such as heartburn and nausea. Lifestyle modifications, including dietary changes, were discussed to manage blood glucose levels. Continue to monitor sugars and plan for repeat A1c at next visit. (5) Hyperprolactinemia: Code(s): E22.1 - Hyperprolactinemia Category: Medical Plan: The patient was found to have elevated prolactin levels, prompting a brain MRI. The MRI ruled out prolactinoma but showed flare hyperintensities, possibly indicating early chronic microvascular ischemic changes. Further monitoring of prolactin levels and symptoms is recommended. She is on Cabergoline as prescribed by fertility specialist however she will be d/c from their practice. Referral was placed to endo today. Plan This note was constructed using voice recognition software. While every effort has been made to ensure accuracy and family and divorce legal assistant, still areas may have been included sometimes these areas may affect the content or meeting of the given symptoms. Total time spent caring for the patient today was 20 minutes. This includes time spent before the visit reviewing the chart, time spent during the visit, and time spent after the visit and documentation. Patient was informed and verbally consented to the use of an ambient scribe for clinic note documentation during this visit. Orders: Orders Vitamin D 25-OH Total 05/30/25 Z13.21 - Encounter for screening for nutritional disorder Complete Blood Count Auto Diff 05/30/25 N94.10 - Unspecified dyspareunia, Z13.0 - Encounter for screening for diseases of the blood and blood-forming organs and certain disorders involving the immune mechanism Hemoglobin A1c 05/30/25 E11.65 - Type 2 diabetes mellitus with hyperglycemia, R73.03 - Prediabetes TSH reflex Free T4 05/30/25 Z13.29 - Encounter for screening for other suspected endocrine disorder Vitamin B12 and Folate 05/30/25 Z13.21 - Encounter for screening for nutritional disorder Comprehensive Met. Panel 05/30/25 R73.03 - Prediabetes, Z00.00 - Encounter for general adult medical examination without abnormal findings Referrals Endocrinology Referral E22.1 - Hyperprolactinemia Ear/Nose/Throat Referral H93.A2 - Pulsatile tinnitus, left ear Medications: Refilled gabapentin 300 mg PO BEDTIME 90 caps 0RF
--- OUTSIDE RECORDS SUMMARY | 2025-05-30 16:57 | XMS_ITS | Patient Health Record ---
Author Organization [facility] Address [address] [place] [address] Support Name Relationship Address Phone Daly Candi Guarantor Unknown Unavaila ble Allergies No Known Allergies Reason For Referral No Information Medications Medication SIG (Take, Route, Frequency, Duration) Notes Start Date End Date Status Nitrofurantoin Monohyd Macro 100 MG 1 capsule Orally TWICE A DAY; Duration: 5 days 08/26/2023 Active Montelukast Sodium 5 [...] Date Coverage End Date [employer] [address] [address] [place] [address] [id number] Candi Pulliam Self - patient is the insured Medical (General) History Medical History History ICD Code Ovarian cysts 8 yrs ago Inactive asthma UTI
--- OUTSIDE RECORDS SUMMARY | 2025-05-30 16:57 | XMS_ITS | Encounter Summary ---
Author Organization [facility] Address [address] [place] [address] Care Team Providers Care Commissioning Agent Name Role Phone Val Carrillo Primary Care Provider [phone] Encounter Details Date Type Department Care Team (Late st Contact Info) Description 05/02/2025 myChart Message [facility] [address] [place] [address] [place] [address] [employer] Chair: Heather Nelson MD [address] [place] [address] metformin Social History Tobacco Use Types Packs/Day Years Used Date Smoking Tobacco: Never Assessed Comments Unknown Sex and Gender Information Value Date Recorded Sex Assigned at Female 01/19/2025 9:29 AM EDT Legal Sex Female 9:26 AM EDT Gender Identity Female 03/01/2025 8:41 AM EDT Sexual Orientation Straight 03/01/2025 8: 41 AM EDT documented as of this encounter Plan of Treatment Not on file documented as of this encounter Visit Diagnoses Not on filedocumented in this encounter Care Teams Commissioning Agent Relationship Specialty Start Date End Date Val Carrillo [address] [place] [id number] PCP - General 01/19/25 documented as of this encounter
--- OUTSIDE RECORDS SUMMARY | 2025-05-30 16:57 | XMS_ITS | Encounter Summary ---
Author Organization [facility] Address [address] [place] [address] Care Team Providers Care Corporate Health Consultant Name Role Phone Val Carrillo Primary Care Provider Encounter Details Date Type Department Care Team (Late st Contact Info) Description 05/02/2025 myChart Message [facility] [address] [place] [address] [place] [address] Master Fisher: Dilma Cortes, lab courier Social History Tobacco Use Types Packs/Day Years [...] on filedocumented in this encounter Care Teams Corporate Health Consultant Relationship Specialty Start Date End Date Val Carrillo [address] [place], [place] [phone] PCP - General 01/19/25 documented as of this encounter
--- OUTSIDE RECORDS SUMMARY | 2025-05-30 16:57 | XMS_ITS | Encounter Summary ---
Author Organization [facility] Address [address] [place] [address] Care Team Providers Care Cadmium Liquor Maker Name Role Phone Val Carrillo Primary Care Provider [phone] Encounter Details Date Type Department Care Team (Late st Contact Info) Description 04/11/2025 Results Follow-Up [facility] [address] [place] [address] [place] [address] Marketing Reporting Analyst: Aleena Vaughn RN Social History Tobacco Use Types Packs/Day Years [...] on filedocumented in this encounter Care Teams Cadmium Liquor Maker Relationship Specialty Start Date End Date Val Carrillo [address] [place], [place] [id number] PCP - General 01/19/25 documented as of this encounter
--- OUTSIDE RECORDS SUMMARY | 2025-05-30 16:57 | XMS_ITS | Encounter Summary ---
Author Organization [facility] Address [address] [place] [address] Care Team Providers Care Auto Wrecker Name Role Phone Val Carrillo Primary Care Provider [phone] Encounter Details Date Type Department Care Team (Latest Contact Info) Description 05/24/2025 myChart Message [facility] [address] [place] [address] [place] [address] Doughnut Machine Operator: Dilma Cortes, RN Outstanding Testing Social History Tobacco Use Types Packs/Day Years [...] on filedocumented in this encounter Care Teams Auto Wrecker Relationship Specialty Start Date End Date Val Carrillo [address] [place], [place] [phone] PCP - General 01/19/25 documented as of this encounter
--- OUTSIDE RECORDS SUMMARY | 2025-05-30 16:58 | XMS_ITS | Clinical Summary ---
Author Organization [facility] Address [address] [place] [address] Care Team Providers Care Millinery Copyist Name Role Phone Matthewoh Val Primary Care Provider [phone] Allergies No known active allergies Medications metFORMIN (GLUCOPHAGE) 500 mg tabletIndicatio ns:Prediabetes Take 2 tablets (1,000 mg total) by mouth 2 times a day with meals. Titrate dose up as directed 120 tablet 11 03/19/2025 Active cholecalciferol (VITAMIN D3) 1,250 mcg (50,000 unit) capsuleIndicati ons:Vitamin D deficiency Take 1 capsule (50,000 Units total) by mouth once a week. 4 capsule 2 03/21/2025 Active cabergoline (DOSTINEX) 0.5 mg tablet Take 0.5 tablets (0.25 mg total) by mouth 2 times a week. 4 tablet 1 05/02/2025 Active Active Problems Problem Noted Date Diagnosed Date Female infertility of tubal origin 03/06/2025 Assessment & Plan (03/07/2025 9:18 AM EDT): - 86-99% of regularly menstruating women ovulate - Discussed the concepts of quantity and quality of oocytes, and their implications for fertility success - Age remains by far the best predictor for oocyte quality and probability of live - IVF is indicated in the absence of fallopian tubes - Discussed success rates based on history and age. Risks of all treatments discussed, includin) Medication side effects 2) Risk of multiple gestation- minimal with SET 3) Risk of abnormal - do not anticipate increase beyond background rate - Reviewed options of PGT-A - Based on SART-CORS model gor estimate of live rate per IVF cycle is 24% Risks of all treatments discussed included: 1) Injection site reactions, side effects, and allergic reactions of all medications discussed. Discussed elevated risk of blood clots whenever hormonal medication is used. Reviewed that current data is reassuring that medications do not increase risk of breast/ovarian cancer in the future. 2) Formation of ovarian cyst with risk of rupture and bleeding and risks of ovarian torsion. Symptoms of each reviewed. Possible need for surgery, transfusion, loss of ovary discussed. 3) Risk of abnormal or ectopic with possible need for methotrexate or surgery resulting in termination of the . 4) OHSS and its associated life threatening implications (fluid, electrolyte abnormalities and risk of thromboembolism). Discussed methods to reduce risk of OHSS including close monitoring, freeze all, and etrie trigger as indicated. 5) Surgical risks associated with oocyte retrieval including bleeding that may require transfusion, infection requiring antibiotics/hospitalization, need for further surgeries possibly via laparotomy 6) Discussed ASRM guidelines for appropriate numbers of embryos for transfer based on the age of the woman at time that the oocytes were retrieved. For most patients, single embryo transfer is recommended to minimize the risk of multiple . Multifetal gestation and the complications associated with higher order multiples (to include PTL, GDM, PIH, IUGR, defects, abnormal placentation, increased risk for delivery). 7) Discussed that baseline risk of a child being diagnosed with a defect at the time of delivery is 2% and that in the IVF population may be slightly higher. Discussed lack of understanding of this but may be related to medications, the culture environment, or genetic issues. 8) Discussed risk of cycle cancellation for lack of response (failure to grow at least 3 follicles for retrieval) and risk of cancelled transfer if there are no usable blastocysts. We discussed method of insemination. Described both conventional insemination and ICSI. Discussed traditional indications for ICSI.Discussed advantages and disadvantages of each. In regards to ICSI, we discussed the fact that ICSI might also interfere with genomic imprinting during pre-implantation. Discussed elective PGT-A as a way to potentially reduce the risk of miscarriage, increase live rate per embryo transfer thereby shortening time to conception, and prevent complicated by chromosomal abnormalities. Discussed process of freeze all with subsequent FET. Discussed limitations of genetic screening of embryos and mixed data regarding improvement in cumulative rates. Discussed age and ovarian reserve as major factors in considering benefits of PGT-A. We discussed that results of PGT-A could include no normal embryos. Abnormal embryos have option of being discarded, used for quality measurement specialist, or used for research. Reviewed expected euploid rate based on age. Euploid embryos have ~70% chance of implantation, but could still result in SAB or no . Reviewed that we do not transfer embryos based on sex chromosomes. 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 To complete testing to evaluate ovarian reserve and left ovarian accessibility Encounters Date Type Department Care Team Description 05/24/2025 [employer] Message [facility] [address] [place] [id number] Hot Header Operator: Dilma Cortes RN Outstanding Testing 05/04/2025 Documentation [facility] [address] [place] [address] [id number] Hot Header Operator: Dilma Cortes RN 05/02/2025 [employer] Message [facility] [address] [place] [address] [phone] Hot Header Operator: Heather Nelson MD [facility] 05/02/2025 Telephone [facility] [address] [place] [address] [phone] Hot Header Operator: Dilma Cortes RN 05/02/2025 [employer] Message [facility] [address] [place] [address] [phone] Hot Header Operator: Dilma Cortes javascript software engineer 05/02/2025 Orders Only [facility] [address] [place] [address], [place] [address] Hot Header Operator: Dilma Cortes RN Hyperprolactinemia (HCC) (Primary Dx) 04/11/2025 Results Follow-Up [facility] [address] [place] [address] Hot Header Operator: Aleena Vaughn RN 04/11/2025 Orders Only [facility] [address] [place] [address] Hot Header Operator: Aleena Vaughn RN Hyperprolactinemia (HCC) (Primary Dx) 04/06/2025 myChart Message [facility] [address] [place] [address] Hot Header Operator: Heather Nelson MD Ron's orders 04/06/2025 myChart Message [facility] [address] [place] [address] Hot Header Operator: Heather Nelson MD Ron's semen analysis 03/24/2025 myChart Message [facility] [address] [place] [address] Hot Header Operator: Aleena Vaughn RN Repeat Labs 03/21/2025 myChart Message [facility] [address] [place] [address] Hot Header Operator: Heather Nelson MD Regarding your questions 03/21/2025 Telephone [facility] [address] [place] [address] Hot Header Operator: Bettie Nelson MA FC CONSULT 03/21/2025 myChart Message [facility] [address] [place] [address] [phone] Hot Header Operator: Nomi Triplett, slabbing machine operator draw 03/21/2025 Telephone [facility] [address] [place] [address] [id number] Hot Header Operator: Janice King Telephone Intake, Staff PAC Patient Request Call Back 03/19/2025 Orders Only [facility] [address] [place] [address] [phone] Hot Header Operator: Heather Nelson MD Vitamin D deficiency (Primary Dx); Prediabetes 03/18/2025 9:15 AM EDT Lab [facility] Draw [address] [id number] Encounter for investigation and testing for procreative management 03/18/2025 Results Follow-Up [facility] [address] [place] [address] [phone] Hot Header Operator: Dilma Cortes, RN 03/18/2025 Orders Only [facility] YULIYA [address] [address] Heather Nieves MD Hyperprolactinemia (HCC) (Primary Dx) 03/18/2025 Telephone [facility] [address] [place] [address] [phone] Hot Header Operator: Heather Nelson MD 03/17/2025 myChart Message [facility] [address] [place] [address] [phone] Hot Header Operator: Nomi Triplett, RN all set for semen analysis 03/15/2025 myChart Message [facility] [address] [place] [address] [phone] Hot Header Operator: Bettie Nelson MA FINANCIAL CONSULT 03/15/2025 Telephone [facility] [address] [place] [address] [phone] Hot Header Operator: Janice King Telephone Intake, Staff PAC Patient Request Call Back 03/15/2025 Documentation [facility] [address] [place] [address] Hot Header Operator: Aleena Vaughn, GALE 03/14/2025 myChart Message [facility] [address] [place] [address] Hot Header Operator: Aleena Vaughn, GALE 03/07 New Patient Instructions 03/14/2025 Orders Only [facility] [place] [address] Hot Header Operator: Aleena Vaughn, RN Encounter for investigation and testing for procreative management (Primary Dx) 03/11/2025 myChart Message [facility] [address] [address] Hot Header Operator: Heather Nelson MD Records 03/11/2025 Telephone [facility] [address] [place] [address] [phone] Hot Header Operator: Heather Nelson MD 03/09/2025 Telephone [facility] [address] [place] [address] [phone] Hot Header Operator: Janice King Telephone Intake, Staff PAC Reason Not Listed (Mychart issue) 03/07/2025 8:00 AM EDT Telehealth [facility] [address] [place] [address] [phone] Hot Header Operator: Heather Nelson MD 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); History of right oophorectomy 03/07/2025 [employer] Message [facility] [address] [place] [address] [phone] Hot Header Operator: Aleena Vaughn, RN Partner Registration 03/07/2025 [employer] Message [facility] [address] [place] [address] [phone] Hot Header Operator: Heather Nelson MD Records 03/04/2025 Telephone [facility] [address] [place] [address] [phone] Hot Header Operator: Kiah Bedoya GREEN SHEET from Last 3 Months Social History Tobacco Use Types Packs/Day Years Used Date Smoking Tobacco: Never Assessed Comments Unknown Sex and Gender Information Value Date Recorded Sex Assigned at Female 01/19/2025 9:29 AM EDT Legal Sex Female 9:26 AM EDT Gender Identity Female 03/01/2025 8:41 AM EDT Sexual Orientation Straight 03/01/2025 8: 41 AM EDT Plan of Treatment Health Maintenance Due Date Last Done Comments Cervical Cancer Screening 1985 HPV and Pap Smear 1985 Pap Smear 1985 Varicella Vaccines (1 of 2 - 13+ 2-dose series) 1998 DTaP,Tdap,and Td Vaccines (1 - Tdap) 10/29/2007 Alcohol/Substance Use Screening 08/25/2024 Depression Screening and Follow-Up 08/25/2024 Social Drivers of Health Annual Screening 08/25/2024 COVID-19 Vaccine (1 - 2023-2 5 season) 2025 Influenza Vaccine (#1) 2025 , 07/25/2023 Chlamydia Screening 03/18/2026 03/18/2025 RSV Vaccine (60+ years old and patients) (1 - 1-dose 75+ series) 2060 Hepatitis B Vaccines Completed 03/05/2025, 02/02/2025 HIV Screening Completed 03/18/2025 Hepatitis C Screening Completed 03/18/2025 Pneumococcal Vaccine: Pediatric (0-5 Years) and At-Risk Patients (6-50 Years) Aged Out No longer eligible based on patient's age to complete this topic Procedures * Due to [place] state law, this organization might not be sharing negative HIV tests. Procedure Name Priority Date/Time Associated Diagnosis Comments MRI BRAIN W WO CONTRAST Routine 04/29/20 12:30 PM EDT Hyperprolactinemia (HCC) TSH REFLEX FREE T4 Routine 04/06/2025 9: 31 AM EDT Hyperprolactinemia (HCC) MACROPROLACTIN Routine 04/06/2025 9:31 AM EDT Hyperprolactinemia (HCC) ESTRADIOL Routine 03/18/2025 9:35 AM EDT Encounter for investigation and testing for procreative management FOLLICLE STIMULATING HORMONE Routine 03/18/2025 9:35 AM EDT Encounter for investigation and testing for procreative management LUTEINIZING HORMONE Routine 03/18/2025 9 :35 AM EDT Encounter for investigation and testing for procreative management ANTI-MULLERIAN HORMONE (AMH), [id number] Routine 03/18/2025 9:35 AM EDT Encounter for investigation and testing for procreative management PROLACTIN Routine 03/18/2025 9:35 AM EDT Encounter for investigation and testing for procreative management TYPE AND SCREEN Routine 03/18/2025 9:35 AM EDT Encounter for investigation and testing for procreative management RUBELLA ANTIBODY, IGG Routine 03/18/2025 9:35 AM EDT Encounter for investigation and testing for procreative management VARICELLA ZOSTER ANTIBODY, IGG Routine 03/18/2025 9:35 AM EDT Encounter for investigation and testing for procreative management CBC AUTO DIFFERENTIAL Routine 03/18/2025 9:35 AM EDT Encounter for investigation and testing for procreative management VITAMIN D, 25-HYDROXY, TOTAL, IMMUNOASSAY Routine 03/18/2025 9:35 AM EDT Encounter for investigation and testing for procreative management HEMOGLOBIN ELECTROPHORESIS Routine 03/18/2025 9:35 AM EDT Encounter for investigation and testing for procreative management HIV-1/2 ANTIGEN/ANTIBODIES 4TH GENERATION W/REFLEX Routine 03/18/2025 9:35 AM EDT Encounter for investigation and testing for procreative management RPR (DIAGNOSIS) W/REFLEX TO TITER & TPPA [id number] Routine 03/18/2025 9:35 AM EDT Encounter for investigation and testing for procreative management HEPATITIS C ANTIBODY W/REFLEX TO HCV RNA, QUANTITATIVE PCR Routine 03/18/2025 9:35 AM EDT Encounter for investigation and testing for procreative management CHLAMYDIA/NEISSERIA GONORRHEA RNA Routine 03/18/2025 9:35 AM EDT Encounter for investigation and testing for procreative management HEPATITIS B SURFACE ANTIGEN W/CONFIRMATION Routine 03/18/2025 9:35 AM EDT Encounter for investigation and testing for procreative management SPINAL MUSCULAR ATROPHY DNA, CARRIER SCREEN Routine 03/18/2025 9:35 AM EDT Encounter for investigation and testing for procreative management CYSTIC FIBROSIS EXPANDED SCREEN Routine 03/18/2025 9:35 AM EDT Encounter for investigation and testing for procreative management HEMOGLOBIN A1C Routine 03/18/2025 9:35 AM EDT Encounter for investigation and testing for procreative management from Last 3 Months Results * Due to [place] state law, this organization might not be sharing negative HIV tests. * MRI Brain W WO Contrast (04/29/2025 12:30 PM EDT) Anatomical Region Laterality Modality Head and Neck Magnetic Resonan ce 04/29/2025 11:5 5 AM EDT Narrative 04/29/2025 3:35 PM EDT [facility] Accession Number: [id number] Patient Name: Candi Chau Date of : 1985 Date of Exam: 04-29-2025 Referring Physician: Heather Nieves [place] [address] Exam: MR Brain (C-/C+) CPT 77531 Room Description: [facility] 3.0T MR Brain (C-/C+) CPT 86842 INDICATION / CLINICAL QUESTION: hyperprolactiemia hyperprolactiemia TECHNIQUE: MRI of the brain with attention to the sella was performed with and without contrast utilizing sagittal T1, coronal T1, coronal T2, coronal FLAIR, and post-contrast sagittal and coronal T1-weighted sequences. 7 mL Elucirem intravenous contrast was administered. COMPARISON: None. FINDINGS: SELLA: The pituitary gland is normal in contour and signal. Enhancement is homogeneous with no focal lesion. There is a normal posterior pituitary T1 bright spot. The infundibulum is midline and normal in caliber. No suprasellar or cavernous sinus mass is present. The optic chiasm, nerves, and tracts are normal in signal and contour. The hypothalamus demonstrates normal signal. BRAIN and EXTRA-AXIAL SPACES: There are a few scattered nonspecific T2/FLAIR hyperintensities in the white matter for example on image 13 of series 6. Incidental subcentimeter pineal cyst. EXTRACRANIAL SOFT TISSUES: Visualized portions of the extracranial soft tissues are unremarkable. Opacified right frontal sinus. BONES: Visualized marrow signal is preserved. IMPRESSION: No definite pituitary lesion. Scattered FLAIR hyperintensities in the white matter are nonspecific. This finding has a broad differential. It could reflect early chronic microvascular ischemic changes, could be associated with migraine headaches, or sequelae of previous infectious/inflammatory processes Electronically Signed By: Flor Sheth MD Procedure Note Provider, Sawyer - 04/29/2025 [facility] Accession Number: [id number] Patient Name: Candi Chau Date of : 1985 Date of Exam: 04-29-2025 Referring Physician: Heather Nieves [place] [address] Exam: MR Brain (C-/C+) CPT 81938 Room Description: [facility] 3.0T MR Brain (C-/C+) CPT 43738 INDICATION / CLINICAL QUESTION: hyperprolactiemia hyperprolactiemia TECHNIQUE: MRI of the brain with attention to the sella was performed with and without contrast utilizing sagittal T1, coronal T1, coronal T2, coronal FLAIR, and post-contrast sagittal and coronal T1-weighted sequences. 7 mL Elucirem intravenous contrast was administered. COMPARISON: None. FINDINGS: SELLA: The pituitary gland is normal in contour and signal. Enhancement is homogeneous with no focal lesion. There is a normal posterior pituitary T1 bright spot. The infundibulum is midline and normal in caliber. No suprasellar or cavernous sinus mass is present. The optic chiasm, nerves, and tracts are normal in signal and contour. The hypothalamus demonstrates normal signal. BRAIN and EXTRA-AXIAL SPACES: There are a few scattered nonspecific T2/FLAIR hyperintensities in the white matter for example on image 13 of series 6. Incidental subcentimeter pineal cyst. EXTRACRANIAL SOFT TISSUES: Visualized portions of the extracranial soft tissues are unremarkable. Opacified right frontal sinus. BONES: Visualized marrow signal is preserved. IMPRESSION: No definite pituitary lesion. Scattered FLAIR hyperintensities in the white matter are nonspecific. This finding has a broad differential. It could reflect early chronic microvascular ischemic changes, could be associated with migraine headaches, or sequelae of previous infectious/inflammatory processes Electronically Signed By: Flor Sheth MD Heather Nieves MD IM MRI PROCEDURES Final Result * TSH Reflex Free T4 (04/06/2025 9:31 AM EDT) TSH 2.120 0.280 - 3.890 uIU/mL 04/06/2025 10:53 AM EDT [facility] Comment: Females: 1st trimester 0.150-4.000 IU/mL 2nd trimester 0.310-4.170 IU/mL 3rd trimester 0.380-4.150 IU/mL Blood Structure of peripheral vein / Unknown Venipuncture / Unknown 04/06/2025 9:31 AM EDT 04/06/2025 10:01 AM EDT us Heather Nieves MD LAB BLOOD ORDERABLES Final Resul t [facility] [address] [place] [address], [place] * (ABNORMAL) Macroprolactin (04/06/2025 9:31 AM EDT) Prolactin,Total 38.1(H) 4.8 - 23.3 ng/mL 04/10/2025 1:06 AM EDT [facility] Prolactin,Unprec ipitated 33.0(H) 3.4 - 18.5 ng/mL 04/10/2025 1:06 AM EDT [facility] Prolactin, Precipitated % 13 <=60 % 04/10/2025 1:06 AM EDT [facility] Prolactin Comment SEE COMMENTS 04/10/2025 1:06 AM EDT [facility] Comment: 60% or less of serum prolactin precipitated following incubation with polyethylene glycol (PEG). Total and unprecipitated prolactin exceed the upper limit of the age/gender stratified reference interval. These results are consistent with hyperprolactinemia. It is suggested that medications be assessed for potential to stimulate prolactin secretion and that monitoring for prolactin be continued. These results should be interpreted in the context of patient presentation and other clinical findings. Prolactin was measured using the Kaitlin Jose e immunoassay analyzer. Test Performed by: [address] [address] Welding Teacher: Nayeli Mccann Ph.D.; CLIA# [id number] Blood Structure of peripheral vein / Unknown Venipuncture / Unknown 04/06/2025 9:31 AM EDT 04/06/2025 10:01 AM EDT Heather Nieves MD LAB BLOOD ORDERABLES Final Resul t Performing Organization Address City/[facility] Co de Phone Number [facility] [address] [place] [address], [place] [phone] * Chlamydia/Neisseria gonorrhoeae RNA (03/18/2025 9:35 AM EDT) Chlamydia trachomatis RNA, TMA NOT DETECTED NOT DETECTED 03/19/2025 6:21 AM EDT [facility] Neisseria Gonorrhoeae RNA, TMA NOT DETECTED NOT DETECTED 03/19/2025 6:21 AM EDT [facility] Comment: The analytical performance characteristics of this assay, when used to test SurePath(TM) specimens have been determined by [employer]. The modifications have not been cleared or approved by the FDA. This assay has been validated pursuant to the CLIA regulations and is used for clinical purposes. For additional information, please refer to https://education.[employer]/faq/NUK647 (This link is being provided for information/ educational purposes only.) Urine Voided urine specimen / Unknown Non-Blood Collection / Unknown 03/18/2025 9:35 AM EDT 03/18/2025 10:36 AM EDT Narrative [facility] - 03/19/2025 6:21 AM EDT [facility] Received Date:[id number] Heather Nieves MD LAB URINE ORDERABLES Final Resul t Performing Organization Address City/[facility] Co de Phone Number [facility] [address] [facility] [address], [place] [address], [place] [phone] [facility] [address], [place] [address], [place] [phone] * RPR (Diagnosis) w/Reflex to Titer & TPPA Confirm (03/18/2025 9:35 AM EDT) RPR W/Refl Titer NON-REACT MICHEL NON-REACT MICHEL 03/21/2025 4:32 PM EDT [facility] Blood Structure of peripheral vein / Unknown Venipuncture / Unknown 03/18/2025 9:35 AM EDT 03/18/2025 9:52 AM EDT Janeth BRICENORICHARD - 03/21/2025 4:32 PM EDT [facility] Received Date:[id number] Heather Nieves MD LAB BLOOD ORDERABLES Final Resul t Performing Organization Address City/[facility]/ZIP Co de Phone Number [facility] [address] [facility] [address] [facility], [place] [address], [place] [phone] [facility] [address], [place] [address], [place] [phone] * Anti-Mullerian Hormone (AMH), Female (03/18/2025 9:35 AM EDT) AMH, Female 1.12 0.18 - 5.68 ng/mL 03/23/2025 10:27 PM EDT [facility] Blood Structure of peripheral vein / Unknown Venipuncture / Unknown 03/18/2025 9:35 AM EDT 03/18/2025 9:52 AM EDT Janeth WILLIAMSON [facility] - 03/23/2025 10:27 PM EDT [facility] Received Date:[id number] us Heather Nieves MD LAB BLOOD ORDERABLES Final Resul t Performing Organization Address City/[facility]/ZIP Co de Phone Number [facility] [address] [facility] [address] [facility], [place] [address], [place] [phone] [facility] [address] [place] [address], [place] [phone] * CBC Auto Differential (03/18/2025 9:35 AM EDT) WBC 7.3 3.8 - 10.8 10*3/uL 03/18/2025 10:01 AM [facility] RBC 4.61 3.80 - 5.10 10*6/uL 03/18/2025 10:01 AM [facility] Hemoglobin 13.4 11.7 - 15.5 g/dL 03/18/2025 10:01 AM [facility] Hematocrit 40.7 35.0 - 45.0 % 03/18/2025 10:01 AM [facility] MCV 88.3 80.0 - 100.0 fL 03/18/2025 10:01 AM [facility] MCH 29.1 27.0 - 33.0 pg 03/18/2025 10:01 AM [facility] MCHC 32.9 32.0 - 36.0 g/dL 03/18/2025 10:01 AM [facility] RDW 11.9 11.0 - 15.0 % 03/18/2025 10:01 AM [facility] Platelets 339 140 - 400 10*3/uL 03/18/2025 10:01 AM [facility] MPV 8.0 7.5 - 12.5 fL 03/18/2025 10:01 AM [facility] Neutrophil % 52.8 % 03/18/2025 10:01 AM [facility] Immature Grans % 0.3 0.0 - 0.9 % 03/18/2025 10:01 AM [facility] Lymphocyte % 36.4 % 03/18/2025 10:01 AM [facility] Monocyte % 6.1 % 03/18/2025 10:01 AM [facility] Eosinophil % 3.3 % 03/18/2025 10:01 AM [facility] Basophil % 1.1 % 03/18/2025 10:01 AM EDT [facility] Neutrophil # 3.83 1.50 - 7.80 10*3/uL 03/18/2025 10:01 AM EDT [facility] Immature Grans # <0.03 <=0.03 10*3/uL 03/18/2025 10:01 AM EDT [facility] Lymphocyte # 2.60 0.85 - 3.90 10*3/uL 03/18/2025 10:01 AM EDT [facility] Monocyte # 0.40 0.20 - 0.95 10*3/uL 03/18/2025 10:01 AM EDT [facility] Eosinophil # 0.20 0.02 - 0.50 10*3/uL 03/18/2025 10:01 AM EDT [facility] Basophil # 0.10 0.00 - 0.20 10*3/uL 03/18/2025 10:01 AM EDT [facility] nRBC % 0.0 /100 WBCs 03/18/2025 10:01 AM EDT [facility] nRBC # <0.01 <0.01 10*3/uL 03/18/2025 10:01 AM EDT [facility] Blood Structure of peripheral vein / Unknown Venipuncture / Unknown 03/18/2025 9:35 AM EDT 03/18/2025 9:52 AM EDT us Heather Nieves MD LAB BLOOD ORDERABLES Final Resul t [facility] [address] [place] [address], [place] * Hemoglobin Electrophoresis (03/18/2025 9:35 AM EDT) Red Blood Cell Count 4.49 3.80 - 5.10 Mill/uL 03/21/2025 11:49 PM EDT [facility] Hemoglobin 13.0 11.7 - 15.5 g/dL 03/21/2025 11:49 PM EDT [facility] Comment: Hematocrit Hematocrit 40.1 35.0 - 45.0 % 03/21/2025 11:49 PM EDT [facility] MCV 89.3 80.0 - 100.0 fL 03/21/2025 11:49 PM EDT [facility] MCH 29.0 27.0 - 33.0 pg 03/21/2025 11:49 PM EDT [facility] RDW 11.8 11.0 - 15.0 % 03/21/2025 11:49 PM EDT [facility] Hemoglobin A 97.1 >96.0 % 03/21/2025 11:49 PM EDT [facility] Hemoglobin F 0.0 <2.0 % 03/21/2025 11:49 PM EDT [facility] Hemoglobin A2 2.9 2.0 - 3.2 % 03/21/2025 11:49 PM EDT [facility] Hemoglobinopath Interpretation See Comments 03/21/2025 11:49 PM EDT [facility] Comment: NORMAL PATTERN There is a normal pattern of hemoglobins and normal levels of Hb A2 and Hb F are present. No variant hemoglobins are observed. This is consistent with A/A phenotype. If iron deficiency coexists with a mild/silent beta thalassemia trait Hb A2 may be in the normal range. Rare variant hemoglobins have no separation from hemoglobin A by capillary zone electrophoresis (CZE) or high-performance liquid chromatography (HPLC). If clinically indicated, Thalassemia and Hemoglobinopathy Comprehensive (TC [address]) should be considered. Blood Structure of peripheral vein / Unknown Venipuncture / Unknown 03/18/2025 9:35 AM EDT 03/18/2025 9:52 AM EDT Narrative [facility] - 03/21/2025 11:49 PM EDT [facility] Received Date:[id number] Heather Nieves MD LAB BLOOD ORDERABLES Final Resul t [place]) [address] [place], [place] , [place] * Hepatitis C Antibody w/Reflex to HCV RNA, Quantitative PCR (03/18/2025 9:35 AM EDT) Hepatitis C Antibody NON-REACT MICHEL NON-REACT MICHEL 03/19/2025 1:43 AM EDT [employer] Comment: HCV antibody was non-reactive. There is no laboratory evidence of HCV infection. In most cases, no further action is required. However, if recent HCV exposure is suspected, a test for HCV RNA (test code 48942) is suggested. For additional information please refer to http://education.[employer]/faq/CGO44i2 (This link is being provided for informational/ educational purposes only.) Blood Structure of peripheral vein / Unknown Venipuncture / Unknown 03/18/2025 9:35 AM EDT 03/18/2025 9:52 AM EDT Narrative [facility] - 03/19/2025 1:43 AM EDT [facility] Received Date:[id number] Heather Nieves MD LAB BLOOD ORDERABLES Final Resul t Performing Organization Address City/[facility]/ZIP Co de Phone Number [facility] [address] [facility] [address], [place] [address], [place] [phone] [employer] [facility] [address] [facility] [address], [place] [address], [place] [phone] * Cystic Fibrosis Expanded Screen (03/18/2025 9:35 AM EDT) Pathologist [facility] Ethnicity: BLOOD 04/05/2025 12:18 PM EDT [facility] [employer] [facility] [place] CF Result NEGATIVE 04/05/2025 12:18 PM EDT [facility] [place] Comment: NEGATIVE; NONE OF THE MUTATIONS LISTED BELOW WERE DETECTED Interpretation SEE NOTE 04/05/2025 12:18 PM EDT [employer]/[facility] Comment: This result does not rule out the presence of a mutation or a diagnosis of cystic fibrosis disease (CF). The risk for mutations that cause CF other than the ones tested depends greatly on family history, clinical presentation, and ethnicity. Detection rates and residual risk estimates are based on a subset of 78 mutations from the panel, which includes the 23 ACMG/ACOG-recommended mutations. Exact figures are currently unavailable for all mutations on the [employer] [facility]() Cystic Fibrosis Expanded Screen. Detection rates may be slightly higher and residual risk rates may be slightly lower than the figures in this table since the estimates are based on a subset of mutations. Racial/Ethnic Detection Carrier Carrier Group Rate, % Rate Risk Before After Testing Negative Test Result [employer] 95 09/17461 Non- 90 09/18241 Moldovan 88 [phone] Moldovan 53 A portion of the testing was performed at [facility]. Laboratory results and submitted clinical information reviewed by Ghislaine Ewing, Ph.D., [facility]. Additional Information SEE NOTE 04/05/2025 12:18 PM EDT [employer]/[facility]ha [employer] [facility] Comment: This assay detects the CF mutations listed below, including the twenty-three core mutations recommended by the [place] [employer] (ACMG) and the [place] [employer] of Obstetricians and Gynecologists (ACOG) for population-based CF carrier screening. While the additional mutations detected in this assay are rare in the general [place] population, the scientific and medical literature indicates that these mutations are associated with CF (Grace Emelia, 2013, 45:1160-7) and may have increased prevalence in some ethnic groups (Clin Chem, 57:841-8). The status of the intron 9 (formerly intron 8) polyT tract is reported only when the R117H mutation is detected. The mutations are detected by multiplex-polymerase chain reaction (PCR) amplification of specific CF gene regions, followed by nucleotide sequence analysis on a massively parallel sequencing platform. Although rare, false positive or false negative results may occur. All results should be interpreted in the context of clinical findings, relevant history, and other laboratory data. Health care providers, please contact your local [employer]' genetic counselor or call at [employer] ([phone]) for assistance with interpretation of these results. Mutations Analyzed SEE NOTE 2024 12:18 PM EDT [facility]/Fariha VAZQUEZ SONY SCHULTZ Comment: M1V (c.1A>G), CFTRdele2,3, Q39X (c.115C>T), 296+2T>A (c.164+2T>A), E60X (c.178G>T), P67L (c.200C>T), R75X (c.223C>T), G85E (c.254G>A), 394delTT (c.262delTT), G91R (c.271G>A), 405+1G>A (c.273+1G>A), 406-1G>A (c.274-1G>A), E92K (c.274G>A), E92X (c.274G>T), Q98X (c.292C>T), 444delA (c.313delA), 457TAT>G (c.325delTATinsG), D110H (c.328G>C), R117C (c.349C>T), R117H (c.350G>A), Y122X (c.366T>A), 574delA (c.442delA), 621+1G>T (c.489+1G>T), 663delT (c.531delT), G178R (c.532G>A), 711+1G>T (c.579+1G>T), 711+3A>G (c.579+3A>G), 711+5G>A (c.579+5G>A), 712-1G>T (c.580-1G>T), H199Y (c.595C>T), P205S (c.613C>T), L206W (c.617T>G), Q220X (c.658C>T), 792bxd01 (c.831agy61), 935delA (c.803delA), 936delTA (c.805delAT), A379rsm (c.933delCTT), 1078delT (c.948delT), G330X (c.988G>T), R334W (c.1000C>T), I336K (c.1007T>A), T338I (c.1013C>T), S341P (c.1021T>C), 1154insTC (c.1022insTC), 1161delC (c.1029delC), R347P (c.1040G>C), R347H (c.1040G>A), R352Q (c.1055G>A), 1213delT (c.1081delT), 1248+1G>A (c.1116+1G>A), 1259insA (c.1127insA), 1288insTA (c.1153insAT), W401X (c.1202G>A or c.1203G>A), 1341+1G>A (c.1209+1G>A), 3388hkb7 (c.1329insAGAT), A455E (c.1364C>A), 1525-1G>A (c.1393-1G>A), S466X (c.1397C>A or c.1397C>G), L467P (c.1400T>C), 1548delG (c.1418delG), G480C (c.1438G>T), S489X (c.1466C>A), S492F (c.1475C>T), 1609delCA (c.1477delCA), Q493X (c.1477C>T), R695cgk (c.1519delATC), P482rqu (c.1521delCTT), 1677delTA (c.1545delTA), V520F (c.1558G>T), C524X (c.1572C>A), Q525X (c.1573C>T), 1717-1G>A (c.1585-1G>A), 1717-8G>A (c.1585-8G>A), G542X (c.1624G>T), S549R (c.1645A>C or c.1647T>G), S549N (c.1646G>A), G551D (c.1652G>A), Q552X (c.1654C>T), R553X (c.1657C>T), A559T (c.1675G>A), R560K (c.1679G>A), R560T (c.1679G>C), 1811+1.6kbA>G (c.1679+1.6kbA>G), 1812-1G>A (c.1680-1G>A), P574H (c.1721C>A), D579G (c.1736A>G), E585X (c.1753G>T), 1898+1G>T(c.1766+1G>T), 1898+1G>A (c.1766+1G>A), 1898+3A>G (c.1766+3A>G), 1898+5G>T (c.1766+5G>T), 2043delG (c.1911delG), 4785hbl7>A (c.1196iyy8cwpZ),0806gmb27sct4 (c.4459hwu57dhpWAYKT), 2108delA (c.1975delA), 2143delT (c.2011delT), 2183AA>G (c.2051delAAinsG), 2184insA (c.2052insA), 2184delA(c.2052delA), R709X (c.2125C>T), K710X (c.2128A>T), 2307insA (c.2175insA),L732X (c.2195T>G), 2347delG (c.2215delG), R764X (c.2290C>T), 2585delT (c.2453delT), E822X (c.2464G>T), 2622+1G>A (c.2490+1G>A), E831X (c.2491G>T),W846X (c.2537G>A or c.2538G>A), R851X (c.2551C>T), 2711delT (c.2583delT), 2789+5G>A (c.2657+5G>A), Q890X (c.2668C>T), 2869insG (c.2737insG), L927P (c.2780T>C), S945L (c.2834C>T), 3007delG (c.2875delG), G970R (c.2908G>C), 3120G>A(c.2988G>A), 3120+1G>A (c.2988+1G>A), 3121-1G>A (c.2989-1G>A), 3171delC (c.3039delC), 1478int3 (c.3067delATAGTG), 3272-26A>G (c.3140-26A>G), A0878H (c.3194T>C), S4807T (c.3196C>T), D1369S (c.3197G>A), F8248S (c.3230T>C), S4215G (c.3266G>A), L1264J (c.3276C>A or c.3276C>G), V1133O (c.3278T>C), Y9912C (c.33 2T>A), V7109N (c.3310G>T), Q9155K (c.3382A>T), U4276P (c.3435G>A), C7358E (c.3472C>T), L2250Y (c.3484C>T), 3659delC (c.3528delC), 6157gtq2 (c.3535delACCA), Z6593N (c.3587C>G), P5185T (c.3611G>A or c.3612G>A), 3791delC (c.3659delC), 3821delT (c.3691delT), G7933U (c.3700A>G), M3335U (c.3712C>T), 3849+10kbC>T (c.3717+56028N>T), O2771L (c.3731G>A),3876delA (c.3744delA), I1079X (c.3752G>A), S9080T (c.3764C>A), 3905insT (c.3773insT), L5470Q (c.3846G>A), U4456M (c.3848G>T), 4005+1G>A (c.3873+1G>A), 4016insT (c.3884insT), J3315M (c.3909C>G), O6599E (c.3937C>T), SADZmgii93,23, 4209TGTT>AA (c.4077delTGTTinsAA), 4382delA (c.4251d lA) This test was developed and its analytical performance characteristics have been determined by [employer]. It has not been cleared or approved by the FDA. This assay has been validated pursuant to the CLIA regulations and is used for clinical purposes. For additional information, please refer to http://education.[employer]/faq/MBK898 (This link is being provided for information/educational purposes only.) Blood Structure of peripheral vein / Unknown Venipuncture / Unknown 03/18/2025 9:35 AM EDT 03/18/2025 9:52 AM EDT Narrative [facility] - 04/05/2025 12:18 PM EDT [facility] Received Date:[id number] Heather Nieves MD LAB GENETIC TESTING Final Result [facility] [address], [place] [address], [facility] [address] [place] [address], * Spinal Muscular Atrophy (SMA) DNA Carrier Screen (03/18/2025 9:35 AM EDT) Technical Results NEGATIVE 025 4:30 PM EDT [facility]/N [employer] [facility] Comment: TWO COPIES OF THE SMN1 GENE DETECTED. SEE TABLE BELOW FOR CARRIER RISK. SMN1 2 COPIES 03/27/2025 4:30 PM EDT [facility]/N [employer] [facility] SMA 2+0 Risk Variant NOT DETECTED 03/27/2025 4:30 PM EDT [facility] SMA Carrier Screen Interpretation SEE NOTE 03/27/2025 4:30 PM EDT [facility]N [employer] [facility] Comment: INTERPRETATION: This analysis identified two (2) copies of the SMN1 gene. The g.33769B>G variant was not detected (NEGATIVE). The revised carrier risk for an individual with two (2) copies of the SMN1 gene and the absence of the g.59385K>G variant is dependent on ethnicity and is provided in the table below (Corina et al., 2012. PMID: 22342915; Stuart et al., 2017. PMID: 32901898). LIMITATIONS OF ANALYSIS: This negative result does not rule out carrier status or a diagnosis of spinal muscular atrophy (SMA). This testing cannot identify all individuals who have two copies of the SMN1 gene on one chromosome and none on the opposite chromosome (silent carriers), nor does it rule out other pathogenic/likely pathogenic variants in the SMN1 gene. The risk for pathogenic/likely pathogenic variants that cause SMA other than the loss of at least exon 7 depends greatly on family history, clinical presentation and ethnicity. Revised carrier risk for individuals with no family history of SMA Carrier Population Revised Risk/ Detection Carrier Variant Ethnicity Rate Risk Absent 95% 1:47 1:921 Ashkenazi 93% 1:67 1:918 Church 94% 1:59 1:907 90% 1:72 1:375 Moldovan 93% 1:68 1:906 A portion of the testing was performed at [facility]. Laboratory testing supervised and results monitored by Artem Hale, Ph.D., FACMG, HCLD, CGMB. SUPPLEMENTAL INFORMATION: Spinal muscular atrophy (SMA) is a family of disorders that is characterized by progressive muscle weakness due to loss of anterior horn cells. A loss of at least exon 7 in the SMN1 gene, located on chromosome 5q, causes 95% of SMA. The remainder of cases may be caused by intragenic pathogenic/likely pathogenic variants that would not be detected by this assay. SMN2 genes produce a protein identical to that of the SMN1 gene, but in a reduced (10-20%) amount. As a result, the number of copies of SMN2 has been shown to influence the severity of the disease. This assay detects the copy number of SMN1 and assesses copy number of SMN2 as described below. METHODOLOGY: The SMN1 copy number is detected by quantitative PCR. The g.12588A>G variant ([id number]), assessed by quantitative PCR, is reported when the SMN1 copy is equal to two. SMN2 copy number is assessed by quantitative PCR when SMN1 copy number is equal to zero or one, or when SMN1 is equal to two in the presence of the g.13689J>G variant. Although rare, false positive or false negative results may occur. All results should be interpreted in context of clinical findings, relevant history, and other laboratory data. Health care providers, please contact your local [employer] genetic counselor or call [employer] at [phone] ( ) for assistance with the interpretation of these results. This test was developed and its analytical performance characteristics have been determined by [employer]. It has not been cleared or approved by the FDA. This assay has been validated pursuant to the CLIA regulations and is used for clinical purposes. Blood Structure of peripheral vein / Unknown Venipuncture / Unknown 03/18/2025 9:35 AM EDT 03/18/2025 9:52 AM EDT [facility] 03/27/2025 4:30 PM EDT [facility] Received Date:[id number] us Heather Nieves MD LAB GENETIC TESTING Final Result [facility] [place] [address] [facility] [address] Floor, [address] [facility] [place] [address], [place] [phone] [facility] [address] [place] [address], [place] [phone] * (ABNORMAL) Vitamin D, 25-Hydroxy, Total, Immunoassay (03/18/2025 9:35 AM EDT) Calcidiol+ercalc idiol 21(L) 30 - 100 ng/mL 03/19/2025 1:50 AM EDT [employer] [facility] Comment: Vitamin D Status 25-OH Vitamin D: Deficiency: <20 ng/mL Insufficiency: 20 - 29 ng/mL Optimal: > or = 30 ng/mL For 25-OH Vitamin D testing on patients on D2-supplementation and patients for whom quantitation of D2 and D3 fractions is required, the QuestAssureD(TM) 25-OH VIT D, (D2,D3), LC/MS/MS is recommended: order code 50904 (patients >2yrs). See Note 1 Note 1 For additional information, please refer to http://education.[employer]or[employer]/faq/LMA287 (This link is being provided for informational/ educational purposes only.) Blood Structure of peripheral vein / Unknown Venipuncture / Unknown 03/18/2025 9:35 AM EDT 03/18/2025 9:52 AM EDT Narrative [facility] - 03/19/2025 1:50 AM EDT [facility] Received Date:[id number] us Heather Nieves MD LAB BLOOD ORDERABLES Final Resul t [place] [address] [facility] [address], [place] [address], [place] [phone] [employer] [facility] [address] [facility] [address] Floor, [address] [place] [address], [place] [phone] * (ABNORMAL) Prolactin (03/18/2025 9:35 AM EDT) Prolactin 34.80(H) 4.79 - 23.30 ng/mL 03/18/2025 11:30 AM EDT [facility] Comment:This reference range is established for non- females only. Blood Structure of peripheral vein / Unknown Venipuncture / Unknown 03/18/2025 9:35 AM EDT 03/18/2025 9:52 AM EDT Heather Nieves MD LAB BLOOD ORDERABLES Final Resul t Performing Organization Address [facility] Co de Phone Number [facility] [address] [place] [address], [place] * Estradiol (03/18/2025 9:35 AM EDT) Estradiol 24.2 See Reference Range Comment pg/mL 03/18/2025 10:37 AM EDT [facility] Comment: Early-Follicular Phase: 20.5-62.8 pg/mL Mid-Follicular Phase: 26.0-79.8 pg/mL Late-Follicular Phase: 49.5-233.0 pg/mL Ovulatory Phase: 60.4-602.0 pg/mL Early-Luteal Phase: 51.1-179.0 pg/mL Mid-Luteal Phase: 66.5-305.0 pg/mL Late-Luteal Phase: 30.2-222.0 pg/mL Postmenopausal: <5.0-40.0 pg/mL Blood Structure of peripheral vein / Unknown Venipuncture / Unknown 03/18/2025 9:35 AM EDT 03/18/2025 9:52 AM EDT us Heather Nieves MD LAB BLOOD ORDERABLES Final Resul t Performing Organization Address City/[facility]/ZIP Co de Phone Number [facility] [address] [place] [address], [place] * Rubella Antibody, IgG (03/18/2025 9:35 AM EDT) Rubella Antibody (IgG), Immune Status 1.91 Index 03/21/2025 9:15 PM EDT [employer] [facility] Comment: Index Interpretation ----- <0.90 Not consistent with immunity 0.90-0.99 Equivocal > or = 1.00 Consistent with immunity The presence of rubella IgG antibody suggests immunization or past or current infection with rubella virus. Blood Structure of peripheral vein / Unknown Venipuncture / Unknown 03/18/2025 9:35 AM EDT 03/18/2025 9:52 AM EDT [employer] - 03/21/2025 9:15 PM EDT [facility] Received Date:[id number] us Heather Nieves MD LAB BLOOD ORDERABLES Final Resul t Performing Organization Address City/[facility]/ZIP Co de Phone Number [facility] [address] [facility] [address], [place] [address], [place] [phone] [employer] [facility] [address] [facility] [address], [place] [address], [place] [phone] * HIV-1/2 Antigen/Antibodies 4th Generation w/Reflex (03/18/2025 9:35 AM EDT) Pathologist [facility] HIV Final Interp See Comments 03/19/2025 2:54 AM EDT [employer] [facility] Comment: HIV Negative HIV-1 antigen and HIV-1/HIV-2 antibodies were not detected. There is no laboratory evidence of HIV infection. Blood Structure of peripheral vein / Unknown Venipuncture / Unknown 03/18/2025 9:35 AM EDT 03/18/2025 9:52 AM EDT [employer] [employer] [facility] - 03/19/2025 2:54 AM EDT [facility] Received Date:[id number] us Heather Nieves MD LAB BLOOD ORDERABLES Final Resul t [facility] [address] [facility] [address], [place] [address], [place] [phone] [facility] [address] [facility] [address], [place] [address], [place] [phone] * Hepatitis B Surface Antigen W/Confirmation (03/18/2025 9:35 AM EDT) Hepatitis B Surface Antigen NON-REACT MICHEL NON-REACT MICHEL 03/19/2025 1:45 AM EDT [facility] Comment: For additional information, please refer to http://education.[employer]/faq/MEZ192 (This link is being provided for informational/ educational purposes only.) Blood Structure of peripheral vein / Unknown Venipuncture / Unknown 03/18/2025 9:35 AM EDT 03/18/2025 9:52 AM EDT Narrative [facility] - 03/19/2025 1:45 AM EDT [facility] Received Date:[id number] Heather Nieves MD LAB BLOOD ORDERABLES Final Resul t [facility] [address] [facility] [address], [place] [address], [place] [phone] [facility] [address] [facility] [address] [facility], [place] [address], [place] [phone] * Type and Screen (03/18/2025 9:35 AM EDT) ABO Blood Type O 03/18/2025 5:09 PM EDT [facility] Type Positive 03/18/2025 5:09 PM EDT [facility] Expiration Date/Time 2025-03-21 23:59 03/18/2025 5:09 PM EDT [facility] Antibody Screen Negative 03/18/2025 5:09 PM EDT [facility] Blood Structure of peripheral vein / Unknown Venipuncture / Unknown 03/18/2025 9:35 AM EDT 03/18/2025 11:05 AM EDT Heather Nieves MD LAB BLOOD BANK TEST ORDERABLES F inal Result Performing Organization Address City/[facility]/ZIP Co de Phone Number [facility] [address] [place] [address], [place] [phone] * Varicella Zoster Antibody, IgG (03/18/2025 9:35 AM EDT) [facility] Varicella Zoster Virus Antibody 8.08 S/CO 03/19/2025 2:06 AM EDT [employer] [facility] Comment: Signal to Cut-off S/CO Interpretation --------- <1.00 Negative - Antibody not detected > or = 1.00 Positive - Antibody detected A positive result indicates that the patient has antibody to VZV but does not differentiate between an active or past infection. The clinical diagnosis must be interpreted in conjunction with the clinical signs and symptoms of the patient. This assay reliably measures immunity due to previous infection but may not be sensitive enough to detect antibodies induced by vaccination. Thus, a negative result in a vaccinated individual does not necessarily indicate susceptibility to VZV infection. A more sensitive test for vaccination-induced immunity is Varicella Zoster Virus Antibody Immunity Screen, ACIF. Blood Structure of peripheral vein / Unknown Venipuncture / Unknown 03/18/2025 9:35 AM EDT 03/18/2025 9:52 AM EDT Narrative [facility] - 03/19/2025 2:06 AM EDT [facility] Received Date:[id number] Heather Nieves MD LAB BLOOD ORDERABLES Final Resul t Performing Organization Address City/[facility]/ZIP Co de Phone Number [facility] [address] [facility] [address] Floor, [place] [address], [place] [phone] [employer] [facility] [address] [facility] 3rd Floor, [place] [address], [place] [phone] * (ABNORMAL) Hemoglobin A1c (03/18/2025 9:35 AM EDT) Hemoglobin A1C 5.7(H) <5.7 % 03/19/2025 5:46 AM EDT [employer] Comment: For someone without known diabetes, a hemoglobin A1c value between 5.7% and 6.4% is consistent with prediabetes and should be confirmed with a follow-up test. For someone with known diabetes, a value <7% indicates that their diabetes is well controlled. A1c targets should be individualized based on duration of diabetes, age, comorbid conditions, and other considerations. This assay result is consistent with an increased risk of diabetes. Currently, no consensus exists regarding use of hemoglobin A1c for diagnosis of diabetes for children. eAG (MG/DL) 117 mg/dL 03/19/2025 5:46 AM EDT [employer] eAG (MMOL/L) 6.5 mmol/L 03/19/2025 5:46 AM EDT [employer] Blood Structure of peripheral vein / Unknown Venipuncture / Unknown 03/18/2025 9:35 AM EDT 03/18/2025 9:52 AM EDT [facility] - 03/19/2025 5:46 AM EDT [facility] Received Date: Heather Nieves MD LAB BLOOD ORDERABLES Final Resul t [facility] [address], [place] [address], [employer] [facility] [address] [facility] [address], [place] [address], [place] [phone] * Luteinizing Hormone (03/18/2025 9:35 AM EDT) LH 6.5 See Reference Range Comment mIU/mL 03/18/2025 10:37 AM EDT [facility] Comment: Follicular 2.4-12.6 mIU/mL Ovulatory 14.0-95.6 mIU/mL Luteal 1.0-11.4 mIU/mL Post-menopausal 7.7-58.5 mIU/mL Blood Structure of peripheral vein / Unknown Venipuncture / Unknown 03/18/2025 9:35 AM EDT 03/18/2025 9:52 AM EDT us Heather Nieves MD LAB BLOOD ORDERABLES Final Resul t Performing Organization Address [facility] de Phone Number [facility] [address] [place] [address], * Follicle Stimulating Hormone (03/18/2025 9:35 AM EDT) FSH 8.9 See Reference Range Comment mIU/mL 03/18/2025 10:37 AM EDT [facility] Comment: Follicular 3.5-12.5 mIU/mL Ovulatory 4.7-21.5 mIU/mL Luteal 1.7-7.7 mIU/mL Post-menopausal 25.8-134.8 mIU/mL Blood Structure of peripheral vein / Unknown Venipuncture / Unknown 03/18/2025 9:35 AM EDT 03/18/2025 9:52 AM EDT us Heather Nieves MD LAB BLOOD ORDERABLES Final Resul t Performing Organization Address [facility] de Phone Number [facility] [address] [place] [address], from Last 3 Months Insurance [facility] Care Teams Millinery Copyist Relationship Specialty Start Date End Date Gerardo Val [address] [place] [address] PCP - General 01/19/25
== END 2025-05-30 15:24 | disposition home or self-care (01) ==
LOC: HO.HMCH 14:33
DX: M54.41 Lumbago with sciatica, right side (principal); M54.12 Radiculopathy, cervical region; H93.A2 Pulsatile tinnitus, left ear; R73.03 Prediabetes; E22.1 Hyperprolactinemia

== ENCOUNTER 2025-06-07 09:15 | Outpatient (REF) | payer OTHER, SELFPAY ==
[2025-06-07 09:32] LABS: MANUAL DIFF FLAG NO
--- OUTSIDE RECORDS SUMMARY | 2025-06-07 10:06 | XMS_ITS | Encounter Summary ---
Author Organization [facility] Address [address] [place] [address] Care Team Providers Care Perforator Loader Name Role Phone Val Carrillo Primary Care Provider [phone] Encounter Details Date Type Department Care Team (Late Contact Info) Description 04/11/2025 Results Follow-Up [facility] [address] [place] [address] Aeronautical Drafter: Aleena Vaughn RN Social History Tobacco Use Types Packs/Day Years Used Date Smoking Tobacco: Never Assessed Comments Unknown Sex and Gender Information Value Date Recorded Sex Assigned at Female 01/19/2025 9:29 AM EDT Legal Sex Female 9:26 AM EDT Gender Identity Female 03/01/2025 8:41 AM EDT Sexual Orientation Straight 03/01/2025 8: 41 AM EDT documented as of this encounter Plan of Treatment Upcoming Encounters Date Type Department Care Team (Late Contact Info) Description 06/17/2025 9:00 AM EDT Telehealth [facility] [address] [place] [address] Aeronautical Drafter: Heather Nelson MD [address] [place] [address] documented as of this encounter Visit Diagnoses Not on filedocumented in this encounter Care Teams Perforator Loader Relationship Specialty Start Date End Date Val Carrillo [address] [place] [address] PCP - General 01/19/25 documented as of this encounter
--- OUTSIDE RECORDS SUMMARY | 2025-06-07 10:06 | XMS_ITS | Encounter Summary ---
Author Organization [facility] Address [address] [place] [address] Care Team Providers Care Client Evaluator Name Role Phone Val Carrillo Primary Care Provider [phone] Encounter Details Date Type Department Care Team (Late st Contact Info) Description 05/02/2025 myChart Message [facility] [address] [place] [address] Manager Of Drilling: Heather Nelson MD [address] [place] [phone] metformin Social History Tobacco Use Types Packs/Day [...] Encounters Date Type Department Care Team (Late st Contact Info) Description 06/17/2025 9:00 AM EDT Telehealth [facility] [address] [place] [address] Manager Of Drilling: Heather Nelson MD [address] [place] [address] documented as of this encounter Visit Diagnoses Not on filedocumented in this encounter Care Teams Client Evaluator Relationship Specialty Start Date End Date Val Carrillo [address] [place] [address] PCP - General 01/19/25 documented as of this encounter
--- OUTSIDE RECORDS SUMMARY | 2025-06-07 10:06 | XMS_ITS | Encounter Summary ---
Author Organization [facility] Address [address] [place] [address] Care Team Providers Care Thermostat Mechanic Name Role Phone Val Carrillo Primary Care Provider [phone] Reason for Visit * Reason Comments Med Refill Encounter Details Date Type Department Care Team (Late st Contact Info) Description 06/03/2025 Refill [facility] IVF [address] [place] [address] - [place] [address] Caster Operator: Heather Nelson MD [address] [place] [address] Vitamin D deficiency Social History Tobacco Use Types Packs/Day Years Used Date Smoking Tobacco: Never Assessed Comments Unknown Sex and Gender Information Value Date Recorded Sex Assigned at Female 01/19/2025 9:29 AM EDT Legal Sex Female 9:26 AM EDT Gender Identity Female 03/01/2025 8:41 AM EDT Sexual Orientation Straight 03/01/2025 8: 41 AM EDT documented as of this encounter Miscellaneous Notes * Telephone Encounter - Heather Nieves MD - 06/03/2025 12:53 PM EDT Therapy has been completed. documented in this encounter Plan of Treatment Upcoming Encounters Date Type Department Care Team (Late st Contact Info) Description 06/17/2025 9:00 AM EDT Telehealth [facility] [address] [place] [address] - [place] [address] Caster Operator: Heather Nelson MD [address] [place] [address] documented as of this encounter Visit Diagnoses Diagnosis Vitamin D deficiency documented in this encounter Care Teams Thermostat Mechanic Relationship Specialty Start Date End Date Val Carrillo [address] [place] [address] PCP - General 01/19/25 documented as of this encounter
--- OUTSIDE RECORDS SUMMARY | 2025-06-07 10:06 | XMS_ITS | Encounter Summary ---
Author Organization [facility] Address [address] [place] [address] Care Team Providers Care Contact Lens Fitter Name Role Phone Val Carrillo Primary Care Provider [phone] Encounter Details Date Type Department Care Team (Late st Contact Info) Description 06/02/2025 Results Follow-Up [facility] [address] [place] [address] Plate Filler: Heather Nelson MD [address] [place] [address] Social History Tobacco Use Types Packs/Day Years [...] Info) Description 06/17/2025 9:00 AM EDT Telehealth [facility] [address] [place] [address] Plate Filler: Heather Nelson MD [address] [place] [address] documented as of this encounter Visit Diagnoses Not on filedocumented in this encounter Care Teams Contact Lens Fitter Relationship Specialty Start Date End Date Val Carrillo [address] [place] [address] PCP - General 01/19/25 documented as of this encounter
--- OUTSIDE RECORDS SUMMARY | 2025-06-07 10:06 | XMS_ITS | Encounter Summary ---
Author Organization [facility] Address [address] [place] [address] Care Team Providers Care Machinist Set Up Name Role Phone Val Carrillo Primary Care Provider [phone] Reason for Visit * Reason Comments Med Refill Encounter Details Date Type Department Care Team (Late st Contact Info) Description 06/05/2025 Refill [facility] IVF [address] [place] [address] - Second [place] [address] Screen Printer: Heather Nelson MD [address] [place] [address] Vitamin D deficiency Social History Tobacco Use [...] Telephone Encounter - Heather Nieves MD - 06/05/2025 10:13 AM EDT Patient has completed high dose vitamin D therapy so no additional dispensing is needed. documented in this encounter Plan of Treatment Upcoming Encounters Date Type Department Care Team (Late st Contact Info) Description 06/17/2025 9:00 AM EDT Telehealth [facility] [address] [place] [address] - [place] [address] Screen Printer: Heather Nelson MD [address] [place] [address] documented as of this encounter Visit Diagnoses Diagnosis Vitamin D deficiency documented in this encounter Care Teams Machinist Set Up Relationship Specialty Start Date End Date Val Carrillo [address] [place] [address] PCP - General 01/19/25 documented as of this encounter
--- OUTSIDE RECORDS SUMMARY | 2025-06-07 10:06 | XMS_ITS | Encounter Summary ---
Author Organization [facility] Address [address] [place] [address] Care Team Providers Care Shopfitter Name Role Phone Val Carrillo Primary Care Provider [phone] Encounter Details Date Type Department Care Team (Late st Contact Info) Description 05/02/2025 myChart Message [facility] [address] [place] [address] Optical Mechanic Apprentice: Dilma Cortes, process analyst Social History Tobacco Use Types Packs/Day Years [...] Info) Description 06/17/2025 9:00 AM EDT Telehealth [facility] [address] [place] [address] Optical Mechanic Apprentice: Heather Nelson MD [address] [place] [address] documented as of this encounter Visit Diagnoses Not on filedocumented in this encounter Care Teams Shopfitter Relationship Specialty Start Date End Date Val Carrillo [address] [place] [address] PCP - General 01/19/25 documented as of this encounter
--- OUTSIDE RECORDS SUMMARY | 2025-06-07 10:06 | XMS_ITS | Encounter Summary ---
Author Organization [facility] Address [address] [place] [address] Care Team Providers Care Supervisor Cigar Making Machine Name Role Phone Val Carrillo Primary Care Provider [phone] Encounter Details Date Type Department Care Team (Late st Contact Info) Description 06/01/2025 Results Follow-Up [facility] IVF [address] [place] [address] Computational Chemist: Heather Nelson MD [address] [place] [address] Social History Tobacco Use Types Packs/Day Years [...] [facility] [address] [place] [address] Computational Chemist: Heather Nelson MD [address] [place] [address] documented as of this encounter Visit Diagnoses Not on filedocumented in this encounter Care Teams Supervisor Cigar Making Machine Relationship Specialty Start Date End Date Val Carrillo [address] [place] [phone] PCP - General 01/19/25 documented as of this encounter
--- OUTSIDE RECORDS SUMMARY | 2025-06-07 10:06 | XMS_ITS | Clinical Summary ---
Author Organization [facility] Address [address] [place] [address] Care Team Providers Care Service Dispatcher Name Role Phone Gerardo Val Primary Care Provider [phone] Allergies No known active allergies Medications metFORMIN [...] option of being discarded, used for quality assurance supervisor body, or used for research. Reviewed expected euploid [...] Encounters Date Type Department Care Team Description 06/05/2025 Refill [facility] [address] [place] [address] [employer] Superintendent: Heather Nelson MD Vitamin D deficiency 06/03/2025 Refill [facility] [address] [place] [address] [employer] Superintendent: Heather Nelson MD Vitamin D deficiency 06/02/2025 Results Follow-Up [facility] [address] [place] [address] [employer] Superintendent: Heather Nelson MD 06/01/2025 Orders Only [facility] [address] [place] [address] [employer] Superintendent: Heather Nelson MD Hyperprolactinemia (HCC) (Primary Dx) 06/01/2025 Results Follow-Up [facility] [address] [place] [address] [employer] Superintendent: Heather Nelson MD 05/24/2025 myChart Message [facility] [address] [place] [address] [employer] Superintendent: Dilma Cortes RN Outstanding Testing 05/04/2025 Documentation [facility] [address] [place] [address] [employer] Superintendent: Dilma Cortes RN 05/02/2025 myChart Message [facility] [address] [place] [address] [employer] Superintendent: Heather Nelson MD metformin 05/02/2025 Telephone [facility] [address] [place] [address] [employer] Superintendent: Dilma Cortes RN 05/02/2025 myChart Message [facility] [address] [place] [address] [employer] Superintendent: Dilma Cortes RN Medication 05/02/2025 Orders Only [facility] [address] [place] [address] [employer] Superintendent: Dilma Cortes RN Hyperprolactinemia (HCC) (Primary Dx) 04/11/2025 Results Follow-Up [facility] [address] [place] [address] [employer] Superintendent: Aleena Vaughn RN 04/11/2025 Orders Only [facility] [address] [place] [address] [employer] Superintendent: Aleena Vaughn RN Hyperprolactinemia (HCC) (Primary Dx) 04/06/2025 myChart Message [facility] [address] [place] [address] [employer] Superintendent: Heather Nelson MD Ron's orders 04/06/2025 Mobakids Message [facility] [address] [place] [address] [employer] Superintendent: Heather Nelson MD Ron's semen analysis 03/24/2025 Mobakids Message [facility] [address] [place] [address] [employer] Superintendent: Aleena Vaughn, GALE Repeat Labs 03/21/2025 Wayger [facility] [address] [place] [address] [employer] Superintendent: Heather Nelson MD Regarding your questions 03/21/2025 Telephone [facility] [address] [place] [address] [employer] Superintendent: Bettie Nelsno MA FC CONSULT 03/21/2025 Wayger [facility] [address] [place] [address] [employer] Superintendent: Nomi Triplett, photographic laboratory technician draw 03/21/2025 Telephone [facility] [address] [place] [address] [employer] Superintendent: Janice King Telephone Intake, Staff PAC Patient Request Call Back 03/19/2025 Orders Only [facility] [address] [place] [address] [employer] Superintendent: Heather Nelson MD Vitamin D deficiency (Primary Dx); Prediabetes 03/18/2025 9:15 AM EDT Lab [facility] Lab Draw [address] [place] [address] Encounter for investigation and testing for procreative management 03/18/2025 Results Follow-Up [facility] [address] [place] [address] [employer] Superintendent: Dilma Cortes, RN 03/18/2025 Orders Only [facility] [place] [address] Heather Nieves MD Hyperprolactinemia (HCC) (Primary Dx) 03/18/2025 Telephone [facility] [address] [place] [address] [employer] Superintendent: Heather Nelson MD 03/17/2025 myChart Message [facility] [address] [place] [address] [employer] Superintendent: Nomi Triplett, GALE all set for semen analysis 03/15/2025 myChart Message [facility] [address] [place] [address] [employer] Superintendent: Bettie Nelson MA FINANCIAL CONSULT 03/15/2025 Telephone [facility] [address] [place] [address] [employer] Superintendent: Janice King Telephone Intake, Staff PAC Patient Request Call Back 03/15/2025 Documentation [facility] [address] [place] [address] [employer] Superintendent: Aleena Vaughn, GALE 03/14/2025 myChart Message [facility] [address] [place] [address] [employer] Superintendent: Aleena Vaughn, RN 03/07 New Patient Instructions 03/14/2025 Orders Only [facility] [address] [place] [address] [employer] Superintendent: Aleena Vaughn, RN Encounter for investigation and testing for procreative management (Primary Dx) 03/11/2025 myChart Message [facility] [address] [place] [address] [employer] Superintendent: Heather Nelson MD Records 03/11/2025 Telephone [facility] [address] [place] [address] [employer] Superintendent: Heather Nelson MD 03/09/2025 Telephone [facility] [address] [place] [address] [employer] Superintendent: Janice King Telephone Intake, Staff PAC Reason Not Listed (Mychart issue) 03/07/2025 8:00 AM EDT Telehealth [facility] [address] [place] [address] [employer] Superintendent: Heather Nelson MD 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); History of right oophorectomy 03/07/2025 myChart Message [facility] [address] [place] [address] [employer] Superintendent: Aleena Vaughn, RN Partner Registration 03/07/2025 myChart Message [facility] [address] [place] [address] [employer] Superintendent: Heather Nelson MD Records from Last 3 Months Social History Tobacco Use Types Packs/Day Years Used Date Smoking Tobacco: Never Assessed Comments Unknown Sex and Gender Information Value Date Recorded Sex Assigned at Female 01/19/2025 9:29 AM EDT Legal Sex Female 9:26 AM EDT Gender Identity Female 03/01/2025 8:41 AM EDT Sexual Orientation Straight 03/01/2025 8: 41 AM EDT Plan of Treatment Upcoming Encounters Date Type Department Care Team (Late st Contact Info) Description 06/17/2025 9:00 AM EDT Telehealth [facility] [address] [place] [address] - [place] [address] [employer] Plant Superintendent: Heather Nelson MD [address] [place] [address] Health Maintenance Due Date Last Done Comments Cervical Cancer Screening 1985 HPV and Pap Smear 1985 Pap Smear 1985 Varicella Vaccines (1 of 2 - 13+ 2-dose series) 1998 DTaP,Tdap,and Td Vaccines (1 - Tdap) 10/29/2007 Alcohol/Substance Use Screening 08/25/2024 Depression Screening and Follow-Up 08/25/2024 Social Drivers of Health Annual Screening 08/25/2024 COVID-19 Vaccine (1 - 2024-2 6 season) 2025 Influenza Vaccine (#1) 2025 , [...] complete this topic Procedures * Due to [place] state law, this organization might not be sharing negative HIV tests. Procedure Name Priority Date/Time Associated Diagnosis Comments PROLACTIN Routine 06/01/2025 9:12 AM EDT Hyperprolactinemia (HCC) VITAMIN D, 25-HYDROXY, TOTAL, IMMUNOASSAY Routine 06/01/2025 9:12 AM EDT Vitamin D deficiency MRI BRAIN W WO CONTRAST Routine 04/29/20 [...] testing for procreative management ANTI-MULLERIAN HORMONE (AMH), [id number] Routine 03/18/2025 9:35 AM EDT Encounter for [...] RPR (DIAGNOSIS) W/REFLEX TO TITER & TPPA [id number] Routine 03/18/2025 9:35 AM EDT Encounter for [...] Last 3 Months Results * Due to [place] state law, this organization might not be sharing negative HIV tests. * Vitamin D, 25-Hydroxy, Total, Immunoassay (06/01/2025 9:12 AM EDT) Only the most recent of2 resultswithin the time period is included. Calcidiol+ercalc idiol 60 30 - 100 ng/mL 06/02/2025 10:11 AM EDT [facility] Comment: Vitamin D Status 25-OH Vitamin D: Deficiency: <20 ng/mL Insufficiency: 20 - 29 ng/mL Optimal: > or = 30 ng/mL For 25-OH Vitamin D testing on patients on D2-supplementation and patients for whom quantitation of D2 and D3 fractions is required, the QuestAssureD(TM) 25-OH VIT D, (D2,D3), LC/MS/MS is recommended: order code 04822 (patients >2yrs). See Note 1 Note 1 For additional information, please refer to http://education.[employer]/faq/RAD603 (This link is being provided for informational/ educational purposes only.) Blood Structure of peripheral vein / Unknown Venipuncture / Unknown 06/01/2025 9:12 AM EDT 06/01/2025 9:54 AM EDT Narrative [facility] - 06/02/2025 10:11 AM EDT [facility] Received Date: Heather Nieves MD LAB BLOOD ORDERABLES Final Resul t [facility] [address] [facility] [address] [facility], [place] [address], [place] [phone] [employer] [facility] [address] [facility] 3rd Floor, [place] [address], [place] [phone] * (ABNORMAL) Prolactin (06/01/2025 9:12 AM EDT) Only the most recent of2 resultswithin the time period is included. Prolactin 4.35(L) 4.79 - 23.30 ng/mL 06/01/2025 11:35 AM EDT [facility] [employer] [employer] [facility] Comment:This reference range is established for non- females only. Blood Structure of peripheral vein / Unknown Venipuncture / Unknown 06/01/2025 9:12 AM EDT 06/01/2025 9:54 AM EDT Heather Nieves MD LAB BLOOD ORDERABLES Final Resul t [facility] [address] [place] [address], [place] * MRI Brain W WO Contrast (04/29/2025 12:30 PM EDT) Anatomical Region Laterality Modality Head and Neck Magnetic Resonan ce 04/29/2025 11:5 5 AM EDT Narrative 04/29/2025 3:35 PM EDT [facility] Accession Number: [id number] Patient Name: Candi Chau Date of : 1985 Date of Exam: 04-29-2025 Referring Physician: Heather Nieves [address] [address] Exam: MR Brain (C-/C+) CPT 81889 Room Description: [facility] 3.0T MR Brain (C-/C+) CPT 67847 INDICATION / CLINICAL QUESTION: hyperprolactiemia hyperprolactiemia TECHNIQUE: [...] Signed By: Flor Sheth MD Procedure Note ProviderSilverio - 04/29/2025 [facility] Accession Number: [id number] Patient Name: Candi Chau Date of : 1985 Date of Exam: 04-29-2025 Referring Physician: Heather Nieves [place] [address] Exam: MR Brain (C-/C+) CPT 88165 Room Description: [facility] 3.0T MR Brain (C-/C+) CPT 89996 INDICATION / CLINICAL QUESTION: hyperprolactiemia hyperprolactiemia TECHNIQUE: [...] By: Flor Sheth MD Heather Nieves MD IMG MRI PROCEDURES Final Result * TSH Reflex Free T4 (04/06/2025 9:31 AM EDT) TSH 2.120 0.280 - 3.890 uIU/mL 04/06/2025 10:53 AM EDT [facility] PATH[facility] LAB[facility] Comment: Females: 1st trimester 0.150-4.000 IU/mL 2nd trimester 0.310-4.170 IU/mL 3rd trimester 0.380-4.150 IU/mL Blood Structure of peripheral vein / Unknown Venipuncture / Unknown 04/06/2025 9:31 AM EDT 04/06/2025 10:01 AM EDT us Heather Nieves MD LAB BLOOD ORDERABLES Final Resul t [facility] LAB[facility] [address] [place] [address], * (ABNORMAL) Macroprolactin (04/06/2025 9:31 AM EDT) Prolactin,Total 38.1(H) 4.8 - 23.3 ng/mL 04/10/2025 1:06 AM EDT [facility] Prolactin,Unprec ipitated 33.0(H) 3.4 - 18.5 ng/mL 04/10/2025 1:06 AM EDT [facility] Prolactin, Precipitated % 13 <=60 % 04/10/2025 1:06 AM EDT [facility] Prolactin Comment SEE COMMENTS 04/10/2025 1:06 AM EDT [facility] Comment: 60% or less of serum [...] Jose e immunoassay analyzer. Test Performed by: [address] [address] Theatre Manager: Nayeli Mccann Ph.D.; CLIA# [id number] Blood Structure of peripheral vein / Unknown Venipuncture / Unknown 04/06/2025 9:31 AM EDT 04/06/2025 10:01 AM EDT Heather Nieves MD LAB BLOOD ORDERABLES Final Resul t Performing Organization Address City/[facility]/ZIP Co de Phone Number [address] [address], [place] [phone] * Chlamydia/Neisseria gonorrhoeae RNA (03/18/2025 9:35 AM EDT) [facility] Chlamydia trachomatis RNA, TMA NOT DETECTED NOT DETECTED 03/19/2025 6:21 AM EDT [employer] [facility] Neisseria Gonorrhoeae RNA, TMA NOT DETECTED NOT DETECTED 03/19/2025 6:21 AM EDT [employer] [facility] Comment: The analytical performance characteristics of this assay, when used to test SurePath(TM) specimens have been determined by [employer]. The modifications have not been cleared or approved by the FDA. This assay has been validated pursuant to the CLIA regulations and is used for clinical purposes. For additional information, please refer to https://education.FaceBu[employer]/faq/CBF539 (This link is being provided for information/ educational purposes only.) Urine Voided urine specimen / Unknown Non-Blood Collection / Unknown 03/18/2025 9:35 AM EDT 03/18/2025 10:36 AM EDT Narrative [facility] - 03/19/2025 6:21 AM EDT [facility] Received Date:[id number] Heather Nieves MD LAB URINE ORDERABLES Final Resul t Performing Organization Address City/[facility]/ZIP Co de Phone Number [facility] [place] [address] [facility] [address], [place] [address], [place] [phone] [employer] [facility] [address], [place] [address], [place] [phone] * RPR (Diagnosis) w/Reflex to Titer & TPPA Confirm (03/18/2025 9:35 AM EDT) RPR W/Refl Titer NON-REACT MICHEL NON-REACT MICHEL 03/21/2025 4:32 PM EDT [employer] [facility] Blood Structure of peripheral vein / Unknown Venipuncture / Unknown 03/18/2025 9:35 AM EDT 03/18/2025 9:52 AM EDT Narrative [facility] - 03/21/2025 4:32 PM EDT [facility] Received Date:[id number] Heather Nieves MD LAB BLOOD ORDERABLES Final Resul t [address] [facility], [place] [address], [place] [phone] [employer] [address], [place] [address], [place] [phone] * Anti-Mullerian Hormone (AMH), Female (03/18/2025 9:35 AM EDT) AMH, Female 1.12 0.18 - 5.68 ng/mL 03/23/2025 10:27 PM EDT [facility] Blood Structure of peripheral vein / Unknown Venipuncture / Unknown 03/18/2025 9:35 AM EDT 03/18/2025 9:52 AM EDT Narrative [facility] [place] - 03/23/2025 10:27 PM EDT [facility] Received Date:[id number] us Heather Nieves MD LAB BLOOD ORDERABLES Final Resul t [address], [place] [address], [place] [phone] [facility] [address] [place] [address], [place] [phone] * CBC Auto Differential (03/18/2025 9:35 AM EDT) WBC 7.3 3.8 - 10.8 10*3/uL 03/18/2025 10:[facility] RBC 4.61 3.80 - 5.10 10*6/uL 03/18/2025 10:01 AM [facility] Hemoglobin 13.4 11.7 - 15.5 g/dL 03/18/2025 10:01 AM [facility] Hematocrit 40.7 35.0 - 45.0 % 03/18/2025 10:01 AM [facility] MCV 88.3 80.0 - 100.0 fL 03/18/2025 10:01 AM [facility] MCH 29.1 27.0 - 33.0 pg 03/18/2025 10:[facility] MCHC 32.9 32.0 - 36.0 g/dL 03/18/2025 10:01 AM [facility] RDW 11.9 11.0 - 15.0 % 03/18/2025 10:01 AM [facility] Platelets 339 140 - 400 10*3/uL 03/18/2025 10:01 AM [facility] MPV 8.0 7.5 - 12.5 fL 03/18/2025 10:01 AM [facility] Neutrophil % 52.8 % 03/18/2025 10:01 AM [facility] Immature Grans % 0.3 0.0 - 0.9 % 03/18/2025 10:01 AM [facility] Lymphocyte % 36.4 % 03/18/2025 10:01 AM [facility] Monocyte % 6.1 % 03/18/2025 10:01 AM EDT [facility] Eosinophil % 3.3 % 03/18/2025 10:01 AM EDT [facility] Basophil % 1.1 % 03/18/2025 10:01 AM EDT [facility] Neutrophil # 3.83 1.50 - 7.80 10*3/uL 03/18/2025 10:01 AM EDT [facility] Immature Grans # <0.03 <=0.03 10*3/uL 03/18/2025 10:01 AM EDT [facility] Lymphocyte # 2.60 0.85 - 3.90 10*3/uL 03/18/2025 10:01 AM EDT [facility] Monocyte # 0.40 0.20 - 0.95 10*3/uL 03/18/2025 10:01 AM EDT [facility] Eosinophil # 0.20 0.02 - 0.50 10*3/uL 03/18/2025 10:01 AM EDT [facility] Basophil # 0.10 0.00 - 0.20 10*3/uL 03/18/2025 10:01 AM EDT [facility] nRBC % 0.0 /100 WBCs 03/18/2025 10:01 AM EDT [facility] nRBC # <0.01 <0.01 10*3/uL 03/18/2025 10:01 AM EDT [facility] Blood Structure of peripheral vein / Unknown Venipuncture / Unknown 03/18/2025 9:35 AM EDT 03/18/2025 9:52 AM EDT us Heather Nieves MD LAB BLOOD ORDERABLES Final Resul t [facility] [address] [place] [address], * Hemoglobin Electrophoresis (03/18/2025 9:35 AM EDT) [facility] Red Blood Cell Count 4.49 3.80 - [...] clinically indicated, Thalassemia and Hemoglobinopathy [place] ([place] [address]) should be considered. Blood Structure of peripheral vein / Unknown Venipuncture / Unknown 03/18/2025 9:35 AM EDT 03/18/2025 9:52 AM EDT [facility] [place]) - 03/21/2025 11:49 PM EDT [facility] Received Date:[id number] Heather Nieves MD LAB BLOOD ORDERABLES Final Resul t Performing Organization Address City/[facility]/ZIP Co de Phone Number [place]) [address] [place], [place] , [place] * Hepatitis C Antibody w/Reflex to HCV RNA, Quantitative PCR (03/18/2025 9:35 AM EDT) Hepatitis C Antibody NON-REACT MICHEL NON-REACT MICHEL 03/19/2025 1:43 AM EDT [facility] Comment: HCV antibody was non-reactive. There is no laboratory evidence of HCV infection. In most cases, no further action is required. However, if recent HCV exposure is suspected, a test for HCV RNA (test code 96050) is suggested. For additional information please refer to http://education.FaceBuzz/faq/MQE08e7 (This link is being provided for informational/ educational purposes only.) Blood Structure of peripheral vein / Unknown Venipuncture / Unknown 03/18/2025 9:35 AM EDT 03/18/2025 9:52 AM EDT [facility] - 03/19/2025 1:43 AM EDT [facility] Received Date:[id number] Heather Nieves MD LAB BLOOD ORDERABLES Final Resul t Performing Organization Address City/[facility]/ZIP Co de Phone Number [facility] [address] [facility] [address], [place] [address], [place] [phone] [employer] [facility] [address] [facility] 3[address], [place] [address], [place] [phone] * Cystic Fibrosis Expanded Screen (03/18/2025 9:35 AM EDT) Ethnicity: BLOOD 04/05/2025 12:18 PM EDT [facility]/N ICHOLS [facility] CF Result NEGATIVE 04/05/2025 12:18 PM EDT [facility]/N CHARLES [facility] Comment: NEGATIVE; NONE OF THE MUTATIONS LISTED BELOW WERE DETECTED Interpretation SEE NOTE 04/05/2025 12:18 PM EDT [facility]/N [facility] Comment: This result does not rule out [...] currently unavailable for all mutations on the [employer]piGaN() Cystic Fibrosis Expanded Screen. Detection rates may be slightly higher and residual risk rates may be slightly lower than the figures in this table since the estimates are based on a subset of mutations. Racial/Ethnic Detection Carrier Carrier Group Rate, % Rate Risk Before After Testing Negative Test Result Ashkenazi Muslim 95 09/17461 Non- 90 09/18241 Ukrainian 88 [phone] Ukrainian 53 199 A portion of the testing was performed at [facility] Laboratory results and submitted clinical information reviewed by Ghislaine Ewing, Ph.D., FORMERLY [facility], 1928–1983. Additional Information SEE NOTE 04/05/2025 12:18 PM EDT [facility]/N CHELINewstag [facility] Comment: This assay detects the CF mutations listed below, including the twenty-three core mutations recommended by the [employer] (ACMG) and the [place] [employer]nec[employer] (ACOG) for [...] Health care providers, please contact your local [employer] genetic counselor or call at [email or web address] ([phone]) for assistance with interpretation of these results. Mutations Analyzed SEE NOTE 2024 12:18 PM EDT [place]/Fariha MOREAUSELECT [facility] NORTHHaim MAURICE Comment: M1V (c.1A>G), CFTRdele2,3, Q39X (c.115C>T), 296+2T>A [...] (c.595C>T), P205S (c.613C>T), L206W (c.617T>G), Q220X (c.658C>T), 317acn82 (c.888ktw94), 935delA (c.803delA), 936delTA (c.805delAT), H350ror (c.933delCTT), 1078delT (c.948delT), G330X (c.988G>T), R334W (c.1000C>T), I336K (c.1007T>A), T338I (c.1013C>T), S341P (c.1021T>C), 1154insTC (c.1022insTC), 1161delC (c.1029delC), R347P (c.1040G>C), R347H (c.1040G>A), R352Q (c.1055G>A), 1213delT (c.1081delT), 1248+1G>A (c.1116+1G>A), 1259insA (c.1127insA), 1288insTA (c.1153insAT), W401X (c.1202G>A or c.1203G>A), 1341+1G>A (c.1209+1G>A), 8091mwe8 (c.1329insAGAT), A455E (c.1364C>A), 1525-1G>A (c.1393-1G>A), S466X (c.1397C>A or c.1397C>G), L467P (c.1400T>C), 1548delG (c.1418delG), G480C (c.1438G>T), S489X (c.1466C>A), S492F (c.1475C>T), 1609delCA (c.1477delCA), Q493X (c.1477C>T), B567bmh (c.1519delATC), C744pei (c.1521delCTT), 1677delTA (c.1545delTA), V520F (c.1558G>T), C524X (c.1572C>A), Q525X (c.1573C>T), 1717-1G>A (c.1585-1G>A), 1717-8G>A (c.1585-8G>A), G542X (c.1624G>T), S549R (c.1645A>C or c.1647T>G), S549N (c.1646G>A), G551D (c.1652G>A), Q552X (c.1654C>T), R553X (c.1657C>T), A559T (c.1675G>A), R560K (c.1679G>A), R560T (c.1679G>C), 1811+1.6kbA>G (c.1679+1.6kbA>G), 1812-1G>A (c.1680-1G>A), P574H (c.1721C>A), D579G (c.1736A>G), E585X (c.1753G>T), 1898+1G>T(c.1766+1G>T), 1898+1G>A (c.1766+1G>A), 1898+3A>G (c.1766+3A>G), 1898+5G>T (c.1766+5G>T), 2043delG (c.1911delG), 8346bdj0>A (c.1114dhj5oldM),6920khm64ydd6 (c.1430urx99sibSXKYL), 2108delA (c.1975delA), 2143delT (c.2011delT), 2183AA>G (c.2051delAAinsG), 2184insA (c.2052insA), 2184delA(c.2052delA), R709X (c.2125C>T), K710X (c.2128A>T), 2307insA (c.2175insA),L732X (c.2195T>G), 2347delG (c.2215delG), R764X (c.2290C>T), 2585delT (c.2453delT), E822X (c.2464G>T), 2622+1G>A (c.2490+1G>A), E831X (c.2491G>T),W846X (c.2537G>A or c.2538G>A), R851X (c.2551C>T), 2711delT (c.2583delT), 2789+5G>A (c.2657+5G>A), Q890X (c.2668C>T), 2869insG (c.2737insG), L927P (c.2780T>C), S945L (c.2834C>T), 3007delG (c.2875delG), G970R (c.2908G>C), 3120G>A(c.2988G>A), 3120+1G>A (c.2988+1G>A), 3121-1G>A (c.2989-1G>A), 3171delC (c.3039delC), 9376jvh2 (c.3067delATAGTG), 3272-26A>G (c.3140-26A>G), B3982S (c.3194T>C), Z7520E (c.3196C>T), I9602Y (c.3197G>A), D4245A (c.3230T>C), S0609L (c.3266G>A), H9631C (c.3276C>A or c.3276C>G), L0773C (c.3278T>C), J1574G (c.33 2T>A), E0510A (c.3310G>T), K3347U (c.3382A>T), H1720A (c.3435G>A), M9696V (c.3472C>T), H3140S (c.3484C>T), 3659delC (c.3528delC), 4944nlq6 (c.3535delACCA), D1579Q (c.3587C>G), N0275Q (c.3611G>A or c.3612G>A), 3791delC (c.3659delC), 3821delT (c.3691delT), S9374U (c.3700A>G), E7993A (c.3712C>T), 3849+10kbC>T (c.3717+53384I>T), F6470Q (c.3731G>A),3876delA (c.3744delA), F4281I (c.3752G>A), Y7631I (c.3764C>A), 3905insT (c.3773insT), B8955D (c.3846G>A), Z7836B (c.3848G>T), 4005+1G>A (c.3873+1G>A), 4016insT (c.3884insT), C0016X (c.3909C>G), N1670X (c.3937C>T), CMAEduno35,23, 4209TGTT>AA (c.4077delTGTTinsAA), 4382delA (c.4251d lA) This test was developed and its analytical performance characteristics have been determined by [facility]. It has not been cleared or approved by the FDA. This assay has been validated pursuant to the CLIA regulations and is used for clinical purposes. For additional information, please refer to http://education.Remitly.qualifyor/faq/VLB962 (This link is being provided for information/educational purposes only.) Blood Structure of peripheral vein / Unknown Venipuncture / Unknown 03/18/2025 9:35 AM EDT 03/18/2025 9:52 AM EDT [facility] 04/05/2025 12:18 PM EDT [facility] Received Date:[id number] Heather Nieves MD LAB GENETIC TESTING Final Result [place] [address] Floor, [address] [place] [address], [place] [phone] [facility] [address] [place] [address], [place] [phone] * Spinal Muscular Atrophy (SMA) DNA Carrier Screen (03/18/2025 9:35 AM EDT) Technical Results NEGATIVE 025 4:30 PM EDT [facility]N [facility] Comment: TWO COPIES OF THE SMN1 GENE DETECTED. SEE TABLE BELOW FOR CARRIER RISK. SMN1 2 COPIES 03/27/2025 4:30 PM EDT [facility] SMA 2+0 Risk Variant NOT DETECTED 03/27/2025 4:30 PM EDT [facility] SMA Carrier Screen Interpretation SEE NOTE 03/27/2025 4:30 PM EDT [facility] Comment: INTERPRETATION: This analysis identified two (2) copies of the SMN1 gene. The g.10264D>G variant was not detected (NEGATIVE). The revised carrier risk for an individual with two (2) copies of the SMN1 gene and the absence of the g.14919G>G variant is dependent on ethnicity and is provided in the table below (Corina et al., 2012. PMID: 54107163; Stuart et al., 2017. PMID: 92878114). LIMITATIONS OF ANALYSIS: This negative result does [...] 95% 1:47 1:921 Ashkenazi 93% 1:67 1:918 Muslim 94% 1:59 1:907 90% 1:72 1:375 Ukrainian 93% 1:68 1:906 A portion of the testing was performed at [facility]. Laboratory testing supervised and results monitored by Artem Hale, Ph.D., FACMG, HCLD, MB. SUPPLEMENTAL INFORMATION: Spinal muscular atrophy (SMA) is [...] number is detected by quantitative PCR. The g.00386N>G variant ([id number]), assessed by quantitative PCR, is reported when the SMN1 copy is equal to two. SMN2 copy number is assessed by quantitative PCR when SMN1 copy number is equal to zero or one, or when SMN1 is equal to two in the presence of the g.40033B>G variant. Although rare, false positive or false negative results may occur. All results should be interpreted in context of clinical findings, relevant history, and other laboratory data. Health care providers, please contact your local [facility] genetic counselor or call [facility] [employer] [facility] at [phone] ( ) for assistance with the interpretation of these results. This test was developed and its analytical performance characteristics have been determined by [facility]. It has not been cleared or approved by the FDA. This assay has been validated pursuant to the CLIA regulations and is used for clinical purposes. Blood Structure of peripheral vein / Unknown Venipuncture / Unknown 03/18/2025 9:35 AM EDT 03/18/2025 9:52 AM EDT Narrative [place] - 03/27/2025 4:30 PM EDT [facility] Received Date:[id number] Heather Nieves MD LAB GENETIC TESTING Final Result [place] [address] [facility] 3rd Floor, [place] [address], [place] [phone] [facility] [address] [place] [address], [place] [phone] * Estradiol (03/18/2025 9:35 AM EDT) Pathologist [facility] Estradiol 24.2 See Reference Range Comment pg/mL 03/18/2025 10:37 AM EDT [facility] Comment: Early-Follicular Phase: 20.5-62.8 pg/mL Mid-Follicular Phase: 26.0-79.8 pg/mL Late-Follicular Phase: 49.5-233.0 pg/mL Ovulatory Phase: 60.4-602.0 pg/mL Early-Luteal Phase: 51.1-179.0 pg/mL Mid-Luteal Phase: 66.5-305.0 pg/mL Late-Luteal Phase: 30.2-222.0 pg/mL Postmenopausal: <5.0-40.0 pg/mL Blood Structure of peripheral vein / Unknown Venipuncture / Unknown 03/18/2025 9:35 AM EDT 03/18/2025 9:52 AM EDT Heather Nieves MD LAB BLOOD ORDERABLES Final Resul t [facility] [address] [place] [address], * Rubella Antibody, IgG (03/18/2025 9:35 AM EDT) Rubella Antibody (IgG), Immune Status 1.91 Index 03/21/2025 9:15 PM EDT [facility] Comment: Index Interpretation ----- <0.90 Not consistent with immunity 0.90-0.99 Equivocal > or = 1.00 Consistent with immunity The presence of rubella IgG antibody suggests immunization or past or current infection with rubella virus. Blood Structure of peripheral vein / Unknown Venipuncture / Unknown 03/18/2025 9:35 AM EDT 03/18/2025 9:52 AM EDT Narrative [place] TISHA - 03/21/2025 9:15 PM EDT [facility] Received Date:[id number] us Heather Nieves MD LAB BLOOD ORDERABLES Final Resul t Performing Organization Address [facility]/ZIP Co de Phone Number [facility] [address], [place] [address], [facility] [address], [place] [address], [place] [phone] * HIV-1/2 Antigen/Antibodies 4th Generation w/Reflex (03/18/2025 9:35 AM EDT) [facility] HIV Final Interp See Comments 03/19/2025 2:54 AM EDT [facility] Comment: HIV Negative HIV-1 antigen and HIV-1/HIV-2 antibodies were not detected. There is no laboratory evidence of HIV infection. Blood Structure of peripheral vein / Unknown Venipuncture / Unknown 03/18/2025 9:35 AM EDT 03/18/2025 9:52 AM EDT Narrative [place] JANAKRICHARD - 03/19/2025 2:54 AM EDT [facility] Received Date:[id number] us Heather Nieves MD LAB BLOOD ORDERABLES Final Resul t Performing Organization Address City/[facility]/ZIP Co de Phone Number [place] [address], [place] [address], [place] [phone] [place] [address], [place] [address], [place] [phone] * Hepatitis B Surface Antigen W/Confirmation (03/18/2025 9:35 AM EDT) Hepatitis B Surface Antigen NON-REACT MICHEL NON-REACT MICHEL 03/19/2025 1:45 AM EDT [place] Comment: For additional information, please refer to http://education.FaceBuzz/faq/XUW734 (This link is being provided for informational/ educational purposes only.) Blood Structure of peripheral vein / Unknown Venipuncture / Unknown 03/18/2025 9:35 AM EDT 03/18/2025 9:52 AM EDT Narrative [facility] - 03/19/2025 1:45 AM EDT [facility] Received Date:[id number] us Heather Nieves MD LAB BLOOD ORDERABLES Final Resul t [facility] [address], [place] [address], [place] [phone] [facility] [address], [place] [address], [place] [phone] * Type and Screen (03/18/2025 9:35 AM [...] 9:35 AM EDT 03/18/2025 11:05 AM EDT us Heather Nieves MD LAB BLOOD BANK TEST ORDERABLES F inal Result Performing Organization Address [facility]/ZIP Co de Phone Number [facility] [address] [place] [address], * Varicella Zoster Antibody, IgG (03/18/2025 9:35 AM EDT) Varicella Zoster Virus Antibody 8.08 S/CO 03/19/2025 2:06 AM EDT [facility] Comment: Signal to Cut-off S/CO Interpretation --------- [...] 9:35 AM EDT 03/18/2025 9:52 AM EDT [facility] - 03/19/2025 2:06 AM EDT [facility] Received Date: Heather Nieves MD LAB BLOOD ORDERABLES Final Resul t Performing Organization Address City/[facility] Co de Phone Number [facility] [address] [facility] 3rd Floor, [place] [address], [place] [phone] [facility] [address], [place] [address], [place] [phone] * (ABNORMAL) Hemoglobin A1c (03/18/2025 9:35 AM EDT) Hemoglobin A1C 5.7(H) <5.7 % 03/19/2025 5:46 AM EDT [facility] Comment: For someone without known diabetes, a [...] (MG/DL) 117 mg/dL 03/19/2025 5:46 AM EDT [facility] eAG (MMOL/L) 6.5 mmol/L 03/19/2025 5:46 AM EDT [facility] Blood Structure of peripheral vein / Unknown Venipuncture / Unknown 03/18/2025 9:35 AM EDT 03/18/2025 9:52 AM EDT [facility] - 03/19/2025 5:46 AM EDT [facility] Received Date: us Heather Nieves MD LAB BLOOD ORDERABLES Final Resul t [facility] [address] [facility] [address], [place] [address], [facility] [address], [place] [address], * Luteinizing Hormone (03/18/2025 9:35 AM EDT) LH 6.5 See Reference Range Comment mIU/mL 03/18/2025 10:37 AM EDT [facility] Comment: Follicular 2.4-12.6 mIU/mL Ovulatory 14.0-95.6 mIU/mL Luteal 1.0-11.4 mIU/mL Post-menopausal 7.7-58.5 mIU/mL Blood Structure of peripheral vein / Unknown Venipuncture / Unknown 03/18/2025 9:35 AM EDT 03/18/2025 9:52 AM EDT us Heather Nieves MD LAB BLOOD ORDERABLES Final Resul t Performing Organization Address City/[facility] Co de Phone Number [facility] [address] [place] [address], * Follicle Stimulating Hormone (03/18/2025 9:35 AM EDT) FSH 8.9 See Reference Range Comment mIU/mL 03/18/2025 10:37 AM EDT [facility] Comment: Follicular 3.5-12.5 mIU/mL Ovulatory 4.7-21.5 mIU/mL Luteal 1.7-7.7 mIU/mL Post-menopausal 25.8-134.8 mIU/mL Blood Structure of peripheral vein / Unknown Venipuncture / Unknown 03/18/2025 9:35 AM EDT 03/18/2025 9:52 AM EDT us Heather Nieves MD LAB BLOOD ORDERABLES Final Resul t Performing Organization Address [facility] Co de Phone Number [facility] [address] [place] [address], from Last 3 Months Insurance [facility] Care Teams Service Dispatcher Relationship Specialty Start Date End Date Val Carrillo [address] [place] [address] PCP - General 01/19/25
--- OUTSIDE RECORDS SUMMARY | 2025-06-07 10:06 | XMS_ITS | Patient Health Record ---
Author Organization [facility] Address [address] [place] [address] Support Name Relationship Address Phone Daly Candi [...] Date Coverage End Date [employer] [address] [address] [place] [address] [id number] Candi Pulliam Self - patient is the insured Medical (General) History Medical History History ICD Code Ovarian cysts 8 yrs ago Inactive asthma UTI
--- OUTSIDE RECORDS SUMMARY | 2025-06-07 10:06 | XMS_ITS | Encounter Summary ---
Author Organization [facility] Address [address] [place] [address] Care Team Providers Care Assistant Chief Nursing Officer Name Role Phone Val Carrillo Primary Care Provider [phone] Encounter Details Date Type Department Care Team (Latest Contact Info) Description 05/24/2025 myChart Message [facility] [address] [place] [phone] Stone Trimmer: Dilma Cortes RN Outstanding Testing Social History Tobacco Use [...] Info) Description 06/17/2025 9:00 AM EDT Telehealth [facility] [address] [place] [address] [phone] Stone Trimmer: Heather Nelson MD [address] [place] [address] [phone] documented as of this encounter Visit Diagnoses Not on filedocumented in this encounter Care Teams Assistant Chief Nursing Officer Relationship Specialty Start Date End Date Val Carrillo [address] [place] [address] PCP - General 01/19/25 documented as of this encounter
[2025-06-07 10:10] LABS: Hematocrit 41.0 % (37.0-47.0); Hemoglobin 13.2 g/dl (12.0-16.0); Imm Gran Abs Auto 0.05 X10*3/uL (0.00-0.03); Imm Gran Pct Auto 0.6 % (0.0-0.4); Lymphocytes Absolute Auto 3.2 X10*3/uL (1.2-4.9); Mean Corpuscular HGB Conc 32.2 g/dl (31.0-35.0); Mean Corpuscular Hemoglobin 28.2 pg (27.0-33.0); Mean Corpuscular Volume 87.6 fL (80.0-98.0); NRBC Abs Auto 0.000 X10*3/uL (0.0-0.012); NRBC Pct Auto 0.0 /100WBC (0.0-0.2); Platelet Count 289 X10*3/uL (160-400); Red Blood Count 4.68 X10*6/uL (4.20-5.50); White Blood Count 7.7 X10*3/uL (4.8-10.8)
[2025-06-07 10:53] LABS: Alanine Aminotransferase 41 U/L (0-31); Albumin Level 4.4 g/dL (3.5-5.0); Alkaline Phosphatase 41 U/L (39-117); Anion Gap 12 (12-20); Aspartate Amino Transferase 32 U/L (5-31); Blood Urea Nitrogen 15 mg/dL (9-16); Calcium 9.2 mg/dL (8.4-10.2); Carbon Dioxide 23 mmol/L (22-29); Chloride 110 mmol/L (96-108); Estimated Glomerular Filt Rate > 60; Potassium 4.4 mmol/L (3.3-5.1); Sodium 141 mmol/L (135-145); Total Protein 7.2 g/dL (6.5-8.0)
[2025-06-07 11:17] LABS: Folate 14.0 ng/mL (> or = 4.0); Vitamin B12 428 pg/mL (200-900)
== END 2025-06-07 09:16 | disposition home or self-care (01) ==
LOC: HO.LAB 09:15
DX: Z00.00 Encounter for general adult medical examination without abnormal findings (principal); Z13.21 Encounter for screening for nutritional disorder; Z13.0 Encounter for screening for diseases of the blood and blood-forming organs and certain disorders involving the immune mechanism; Z13.29 Encounter for screening for other suspected endocrine disorder; E11.65 Type 2 diabetes mellitus with hyperglycemia; N94.10 Unspecified dyspareunia
CPT/HCPCS: 36415; 80053; 82306; 82607; 82746; 83036; 84443; 85025

== ENCOUNTER 2025-08-03 07:58 | Outpatient (AMB) | payer OTHER, SELFPAY ==
[2025-08-03 08:01] VITALS: BP 112/74; PULSE 86; O2SAT 97; BMI 26.7
--- NOTE | 2025-08-03 08:01 | A.OFFVIS_ITS ---
Vital Signs 08/03/25 08:01 Height 5 ft Weight 136 lb 14.513 oz BMI 26.7 BP 112/74 Blood Pressure Location Lt brachial Position Sitting Pulse 86 Pulse Source Pulse Oximeter Pulse Oximetry (%) 97 Oxygen Delivery Method Room Air Intake Visit Reasons: Hyperprolactinemia Intake Note: New patient internally referred by PCP for Hyperprolactinemia. Comparator Operator Required: No Field Tax Auditor: Field Tax Auditor Present (ROMEL Fischer) Accompanied by: Self / Same As Patient Allergies house dust Allergy (Intermediate, Verified 08/03/25 08:03) Hives metformin Allergy (Intermediate, Verified 08/03/25 08:03) Nausea shellfish derived Allergy (Mild, Verified 08/03/25 08:03) Hives Medication List - Last Reconciled 08/03/25 by Jude Diez MD albuterol sulfate 90 mcg/actuation 1 inh inhalation QID PRN beclomethasone dipropionate 40 mcg/actuation (Qvar RediHaler) 1 inh PO BID cabergoline 0.25 mg PO 2XW cholecalciferol (vitamin D3) 20 mcg (2 x 10 mcg (400 unit)) PO DAILY 30 days folic acid 1 mg PO DAILY gabapentin 300 mg PO BEDTIME hydrocortisone 1% (Anti-Itch (hydrocortisone)) 1 appl topical TID PRN hydroxyzine HCl 10 mg PO BEDTIME HPI Comments Details: The patient is a 39-year-old female who presents for evaluation of a slightly elevated prolactin level. The elevated prolactin was first discovered around February or April during a workup for in vitro fertilization (IVF). Her initial prolactin level was 34.8 ng/mL, and her estrogen level was noted to be low. An MRI of the pituitary was performed and did not show any abnormalities. Her IVF doctor initiated cabergoline therapy on March 18, which she initially took twice weekly. A subsequent prolactin level was 4.35 ng/mL, and her cabergoline dose was reduced to once weekly. The patient reports a history of regular monthly menses, though her periods are prolonged, lasting 7 to 8 days, and are associated with severe cramps that can be immobilizing. Her past surgical history is significant for a right salpingo- oophorectomy in 2020 and a left salpingectomy in November 2022, leaving her with only her left ovary. Her menstrual cycle remained normal following her initial surgery. Associated symptoms include a buzzing sound in her ears that occurs only when she eats and breast pain that began after starting cabergoline, which she described as sharp and excruciating but has not occurred recently. She denies any recent galactorrhea. She also reports significant back pain that predates her IVF treatments. She is pursuing IVF to produce an egg for surrogacy, as she has decided not to carry the herself due to her pain. She plans to continue the IVF process with a new doctor in the [facility] starting in September. - Labs: Initial prolactin was 34.8 ng/mL (elevated). - A subsequent prolactin level on cabergoline was 4.35 ng/mL. - Initial estrogen level was noted to be low. - Thyroid hormone levels were normal. - Imaging: MRI of the pituitary gland showed no evidence of a microadenoma or other abnormalities. [facility] Medical History Heavy menses Asthma Surgical History Hx of bilateral salpingectomy Hx of unilateral oophorectomy S/P foot surgery, left History of tubal ligation S/P removal of right ovary History of removal of cyst Family History Mother Heart disease Maternal Aunt Heart disease Paternal Uncle Lung cancer Social History Housing: House Patient Tobacco Use Status: Never used Tobacco e-Cigarette/Vaping Use: Never Used Second Hand Smoke Exposure: No service: No Current occupational status: employed Current occupation: Cognitive needs: No Hearing needs: No Vision needs: Yes (Glasses) Female Reproductive History Menstrual Age of Menarche: 14 Physical Exam Vital Signs: Last Vital Signs Pulse 86 08/03/25 08:01 BP 112/74 08/03/25 08:01 Pulse Ox 97 08/03/25 08:01 Oxygen Delivery Method Room Air 08/03/25 08:01 BMI result Body Mass Index 26.7 Const Other: Thyroid gland is normal size weighs about 15 g . There are no thyroid nodules palpated. Breast examination proctored by female TIA reveals the absence of masses or discharge. There were no acromegalic features Assessment & Plan Assessment & Plan (1) Hyperprolactinemia: Code(s): E22.1 - Hyperprolactinemia Category: Medical Plan: 1. Idiopathic Hyperprolactinemia The patient's mild prolactin elevation (34.8 ng/mL) with a normal pituitary MRI is consistent with idiopathic hyperprolactinemia. The primary indication for treatment is her goal of achieving ovulation for IVF. Management of her cabergoline is currently being overseen by her IVF specialist and should continue under their guidance, especially as she plans to transfer care to a new IVF provider in the [facility]. I have advised her to continue the current regimen and defer all management decisions to her reproductive endocrinology team. A follow-up with endocrinology is recommended after her fertility journey is complete to re-evaluate the need for continued therapy. Long-term, if her estrogen levels remain low post-IVF, an oral contraceptive pill could be considered to maintain bone density. 2. Female Infertility and IVF Planning The patient is actively pursuing IVF to produce eggs for surrogacy. Her care is appropriately managed by her IVF specialist. I have advised her to address IVF-specific questions to that team. No changes to her endocrine management will be made at this time to avoid interference with her fertility treatment plan. The patient had an opportunity to ask questions regarding treatment plan. The patient expressed understanding and agreement with the above treatment plan. Patient was informed and verbally consented to the use of an ambient scribe for clinic note documentation during this visit. Coding Level of Care Code New Pt Level 4 (82795) Diagnoses Hyperprolactinemia E22.1
--- OUTSIDE RECORDS SUMMARY | 2025-08-03 08:13 | XMS_ITS | Patient Health Record ---
Author Organization [facility] Address [address] [place] [address] Support Name Relationship Address Phone Daly Candi [...] Date Coverage End Date [employer] [address] [address] [place] [address] [phone] [id number] Candi Pulliam Self - patient is the insured Medical (General) History Medical History History ICD Code Ovarian cysts 8 yrs ago Inactive asthma UTI
--- OUTSIDE RECORDS SUMMARY | 2025-08-03 08:13 | XMS_ITS | Encounter Summary ---
Author Organization [facility] Address [address] [place] [address] Care Team Providers Care Supervisor Brine Name Role Phone Val Carrillo Primary Care Provider Encounter Details Date Type Department Care Team (Late st Contact Info) Description 06/02/2025 Results Follow-Up [facility] Reproductive Endocrinology and Infertility Clinic [address] [place] [address] - [place] [address] Forestry Aid: Heather Nelson MD [address] [place] [address] Social History Tobacco Use Types Packs/Day Years [...] Care Team (Late st Contact Info) Description 08/03/2025 1:00 PM [facility] Telehealth [facility] Maternal Medicine [address] [place] [address] Forestry Aid: Janice King documented as of this encounter Visit Diagnoses Not on filedocumented in this encounter Care Teams Supervisor Brine Relationship Specialty Start Date End Date Val Carrillo NPI: [id number] [place] [address] PCP - General 01/19/25 documented as of this encounter
--- OUTSIDE RECORDS SUMMARY | 2025-08-03 08:13 | XMS_ITS | Encounter Summary ---
Author Organization [facility] Address [address] [place] [address] Care Team Providers Care Manager Talent Name Role Phone Val Carrillo Primary Care Provider [phone] Encounter Details Date Type Department Care Team (Late st Contact Info) Description 06/01/2025 Results Follow-Up [facility] IVF [address] [facility] - [place] [address] Bullion Weigher: Heather Nelson MD [address] [place] [address] Social History Tobacco Use Types Packs/Day Years [...] st Contact Info) Description 08/03/2025 1:00 PM [facility] Telehealth [facility] Maternal Medicine [address] [place] [address] Bullion Weigher: Janice King documented as of this encounter Visit Diagnoses Not on filedocumented in this encounter Care Teams Manager Talent Relationship Specialty Start Date End Date Val Carrillo [address] [place] [address] PCP - General 01/19/25 documented as of this encounter
--- OUTSIDE RECORDS SUMMARY | 2025-08-03 08:13 | XMS_ITS | Encounter Summary ---
Author Organization [facility] Address [address] [place] [address] Care Team Providers Care Chief Resource Officer Name Role Phone Val Carrillo Primary Care Provider [phone] Encounter Details Date Type Department Care Team (Late st Contact Info) Description 07/01/2025 myChart Message [facility] [address] [place] [address] [place] [address] Information Clerk: Dilma Cortes, RN Repeat Prolactin Social History Tobacco Use Types Packs/Day Years [...] st Contact Info) Description 08/03/2025 1:00 PM EST Telehealth [facility] Maternal Medicine [address] [place], [place] [id number] Information Clerk: Janice King documented as of this encounter Visit Diagnoses Not on filedocumented in this encounter Care Teams Chief Resource Officer Relationship Specialty Start Date End Date Val Carrillo [address] [place] [address] PCP - General 01/19/25 documented as of this encounter
--- OUTSIDE RECORDS SUMMARY | 2025-08-03 08:13 | XMS_ITS | Encounter Summary ---
Author Organization [facility] Address [address] [place] [address] Care Team Providers Care Rac Specialist Name Role Phone Val Carrillo Primary Care Provider [phone] Reason for Visit * Reason Comments Med Refill Encounter Details Date Type Department Care Team (Late st Contact Info) Description 08/02/2025 Refill [facility] [address] [place] [address] [place] [address] Marketing Analytics Manager: Heather Nelson MD [address] [place] [address] Social History Tobacco Use Types Packs/Day Years [...] st Contact Info) Description 08/03/2025 1:00 PM [facility] Telehealth [facility] Maternal Medicine [address] [place] [address] Marketing Analytics Manager: Janice King documented as of this encounter Visit Diagnoses Not on filedocumented in this encounter Care Teams Rac Specialist Relationship Specialty Start Date End Date Val Carrillo [address] [place] [address] PCP - General 01/19/25 documented as of this encounter
--- OUTSIDE RECORDS SUMMARY | 2025-08-03 08:13 | XMS_ITS | Clinical Summary ---
Author Organization [facility] Address [address] [place] [address] Care Team Providers Care Principle Industrial Hygienist Name Role Phone MatthewshanonDago mesaa Primary Care Provider [phone] Allergies No known active allergies Medications metFORMIN [...] 03/21/2025 Active cabergoline (DOSTINEX) 0.5 mg tablet TAKE 1/2 (ONE-HALF) TABLET BY MOUTH TWICE A WEEK 8 tablet 06/30/2025 Active Active Problems Problem Noted Date Diagnosed Date Female infertility of tubal origin 03/06/2025 Assessment & Plan (06/17/2025 9:30 AM EDT): - Recommend ICSI Assessment & Plan (03/07/2025 9:18 AM EDT): [...] further surgeries possibly via laparotomy 6) Discussed AS guidelines for appropriate numbers of embryos for [...] option of being discarded, used for quality tech, or used for research. Reviewed expected euploid rate based on age. Euploid embryos have ~70% chance of implantation, but could still result in SAB or no . Reviewed that we do not transfer embryos based on sex chromosomes. History of right oophorectomy 03/06/2025 Assessment & Plan (06/17/2025 9:30 AM EDT): - There is some evidence supporting the use of CoQ10 300mg BID (Haim Merino., Louis Lo., Sabina Dale., Aretha Hill., Mike Wade., Kim Burks., & Marsha Sanchez. (2018). Pretreatment with coenzyme Q10 improves ovarian response and embryo quality in low-prognosis young women with decreased ovarian reserve: a randomized controlled trial. Reproductive Biology and Endocrinology, 16(8), 31.) - Even though the effect of CoQ10 is not expected to be dramatic, given the good safety profile I suggest trying that and preferably taking that for at least 2 months prior to starting ovarian stimulation - Recommended dose: 200mg 3 times a day or 300mg BID Assessment & Plan (03/07/2025 9:18 AM EDT): - Has likely reduced ovarian reserve. To complete testing to evaluate ovarian reserve and left ovarian accessibility Encounters Date Type Department Care Team Description 08/02/2025 Refill [facility] [address] [place] [address] Account Director: Teofilo Nelson MD 07/01/2025 myChart Message [facility] [address] [place] [address] Account Director: Dilma Cortes RN Repeat Prolactin 06/24/2025 Refill [facility] [address] [place] [id number] Account Director: Teofilo Nelson MD 06/23/2025 Results Follow-Up [facility] [address] Teofilo Nieves MD 06/22/2025 9:49 AM EDT - 06/22/2025 11:59 PM [place] [address] Encounter for investigation and testing for procreative management Discharge Disposition: Home or Self Care (01) 06/17/2025 9:00 AM EDT Telehealth [facility] [address] [place] [address] Account Director: Teofilo Nelson MD Hyperprolactinemia (HCC) (Primary Dx); Prediabetes; Female infertility of tubal origin; History of right oophorectomy; Diminished ovarian reserve; Encounter for male factor infertility in female patient; Encounter for preconception consultation 06/17/2025 myChart Message [facility] [address] [place] [id number] Account Director: Dilma Cortes, RN Following Up 06/05/2025 Refill [facility] [address] [place] [address] Account Director: Teofilo Nelson MD Vitamin D deficiency 06/03/2025 Refill [facility] [address] [place] [address] [id number] Account Director: Teofilo Nelson MD Vitamin D deficiency 06/02/2025 Results Follow-Up [facility] [address] [place] [phone] Account Director: Teofilo Nelson MD 06/01/2025 Orders Only [facility] [address] [place] [address] Account Director: Teofilo Nelson MD Hyperprolactinemia (HCC) (Primary Dx) 06/01/2025 Results Follow-Up [facility] [address] [place] [id number] Account Director: Teofilo Nelson MD 05/24/2025 myChart Message [facility] [address] [place] [address] Account Director: Dilma Cortes, RN Outstanding Testing 05/04/2025 Documentation [facility] [address] [place] [address] Account Director: Dilma Cortes, RN from Last 3 Months Social History Tobacco [...] Info) Description 08/03/2025 1:00 PM EST Telehealth [facility]aternal [facility] [address] [place] [address] Account Director: Janice King Health Maintenance Due Date Last Done Comments Cervical Cancer Screening 1985 HPV and Pap Smear 1985 Pap Smear 1985 Varicella Vaccines (1 of 2 - 13+ 2-dose series) 1998 DTaP,Tdap,and Td Vaccines (1 - Tdap) 10/29/2007 Alcohol/Substance Use Screening 08/25/2024 Depression Screening and Follow-Up 08/25/2024 Social Drivers of Health Annual Screening 08/25/2024 Influenza Vaccine (#1) 2025 , 07/25/2023 COVID-19 Vaccine ( - 2024-2 6 season) 2025 Chlamydia Screening 03/18/2026 03/18/2025 Hepatitis B Vaccines Completed 03/05/2025, 02/02/2025 HIV Screening Completed 03/18/2025 Hepatitis C Screening Completed 03/18/2025 Pneumococcal Vaccine: Pediatric (0-5 Years) and At-Risk Patients (6-50 Years) Aged Out No longer eligible based on patient's age to complete this topic Procedures * Due to [place] [employer] law, this organization might not be sharing negative HIV tests. Procedure Name Priority Date/Time Associated Diagnosis Comments US OB SONOHYSTEROGRAPHY Routine 06/22/20 10:25 AM EDT Encounter for investigation and testing for procreative management PROLACTIN Routine 06/01/2025 9:12 AM EDT Hyperprolactinemia (HCC) VITAMIN D, 25-HYDROXY, TOTAL, IMMUNOASSAY Routine 06/01/2025 9:12 AM EDT Vitamin D deficiency HEPATITIS C ANTIBODY W/REFLEX TO HCV RNA, QUANTITATIVE PCR Routine 03/18/2025 9:35 AM EDT Encounter for investigation and testing for procreative management HIV-1/2 ANTIGEN/ANTIBODIES 4TH GENERATION W/REFLEX Routine 03/18/2025 9:35 AM EDT Encounter for investigation and testing for procreative management CHLAMYDIA/NEISSERIA GONORRHEA RNA Routine 03/18/2025 9:35 AM EDT Encounter for investigation and testing for procreative management from Last 3 Months or Most Recently Relevant to Health Maintenance Results * Due to [place] [employer] law, this organization might not be sharing negative HIV tests. * US OB Sonohysterography (06/22/2025 10:25 AM EDT) Anatomical Region Laterality Modality Body N/A Ultrasound 06/22/2025 10:2 1 AM EDT Impressions 06/22/2025 8:54 PM EDT Normal retroverted uterus Endometrium 6.2 mm Right ovary surgically absent Left ovary normal with follicles and hemorrhagic cyst 1.5 cm On saline infusion sonohysterogram: Endometrial cavity normal Narrative 06/22/2025 8:54 PM EDT Female Pelvis (Signed Final 06/22/2025 08:54 pm) PATIENT INFO: ID #: [id number] : [birth year] (39 yrs)(F) Name: CANDI CHAU Visit Date: 06/22/2025 10:21 am PERFORMED BY: Attending: Thao Mg MD Performed By: Nomi Orozco RDMS Referred By: TEOFILO NIEVES [place] [facility] [place](S) PROVIDED: Hysterosonogram 22282 Cath/Injection for Hysterosonogram 87244 INDICATIONS: Encounter for other procreative investig Z31.49 CLINICAL INFORMATION: Age: 39 UTERUS: Size (cm) L: 5.24 W: 4.91 H: 4.28 Position: Retroverted Comment: Normal appearance. ENDOMETRIUM: Thickness: 6.2 mm Comment: Trilaminar. Normal appearance. RIGHT OVARY: Comment: Surgically absent. LEFT OVARY: Size(cm): 3.06 x 2.36 x 2.07 Vol(ml): 7.83 LEFT OVARY FOLLICLES: Follicle # Length(mm) Width(mm) Height(mm) Avg(mm) 1 10.5 9.4 10 9.97 2 9.3 8.6 9 8.97 Follicle # Volume(ml) Comments 1 0.52 2 0.38 COMMENTS: MANAGER LABOR DELIVERY Scan-saline sonohysterogram Description of Procedure: The patient was identified and consent was reviewed and signed. Written consent is in the chart. All of her questions were answered and she wished to proceed with the procedure today. The procedure was then carried out routinely. A speculum was placed in the vagina and a betadine prep was done of the cervix. A saline sonohysterogram catheter was placed without difficulty and the 1 cc balloon was inflated with normal saline to keep the catheter in place. 20 cc syringe filled with normal sterile saline was attached to the catheter and uterus was distended to visualize the uterine cavity. The transvaginal ultrasound probe was placed into the vagina and used to document the procedure.Endometrial cavity smooth, no polyps seen The procedure was tolerated well and all instruments were removed by the end of the procedure. There were no obvious complications. She was discharged routinely under her own care after the completion of the procedure. Thao Mg Electronically Signed Final Report 06/22/2025 08:54 pm Procedure Note Thao Mg MD - 06/22/2025 Female Pelvis (Signed Final 06/22/2025 08:54 pm) PATIENT INFO: ID #: [id number] : [birth year] (39yrs)(F) Name: CANDI CHAU Visit Date: 06/22/2025 10:21 am PERFORMED BY: Attending: Thao Mg MD Performed By: Nomi Orozco RDMS Referred By: TEOFILO NIEVES [place] [facility] [place]ductive Endocrinology SERVICE(S) PROVIDED: Hysterosonogram 07107 Cath/Injection for Hysterosonogram 59188 INDICATIONS: Encounter for other procreative investig Z31.49 CLINICAL INFORMATION: Age: 39 UTERUS: Size (cm) L: 5.24 W: 4.91 H: 4.28 Position: Retroverted Comment: Normal appearance. ENDOMETRIUM: Thickness: 6.2 mm Comment: Trijenniferr. Normal appearance. RIGHT OVARY: Comment: Surgically absent. LEFT OVARY: Size(cm): 3.06 x 2.36 x 2.07 Vol(ml): 7.83 LEFT OVARY FOLLICLES: Follicle # Length(mm) Width(mm) Height(mm) Avg(mm) 1 10.5 9.4 10 9.97 2 9.3 8.6 9 8.97 Follicle # Volume(ml) Comments 1 0.52 2 0.38 COMMENTS: MANAGER LABOR DELIVERY Scan-saline sonohysterogram Description of Procedure: The patient was identified and consent was reviewed and signed. Written consent is in the chart. All of her questions were answered and she wished to proceed with the procedure today. The procedure was then carried out routinely. A speculum was placed in the vagina and a betadine prep was done of the cervix. A saline sonohysterogram catheter was placed without difficulty and the 1 cc balloon was inflated with normal saline to keep the catheter in place. 20 cc syringe filled with normal sterile saline was attached to the catheter and uterus was distended to visualize the uterine cavity. The transvaginal ultrasound probe was placed into the vagina and used to document the procedure.Endometrial cavity smooth, no polyps seen The procedure was tolerated well and all instruments were removed by the end of the procedure. There were no obvious complications. She was discharged routinely under her own care after the completion of the procedure. Thao Mg Electronically Signed Final Report 06/22/2025 08:54 pm IMPRESSION: Normal retroverted uterus Endometrium 6.2 mm Right ovary surgically absent Left ovary normal with follicles and hemorrhagic cyst 1.5 cm On saline infusion sonohysterogram: Endometrial cavity normal us Teofilo Nieves MD IMG OB US PROCEDURES Final Resul t * Vitamin D, 25-Hydroxy, Total, Immunoassay (06/01/2025 9:12 AM EDT) Calcidiol+ercalc idiol 60 30 - 100 ng/mL 06/02/2025 10:11 AM EDT [employer] Comment: Vitamin D Status 25-OH Vitamin D: Deficiency: <20 ng/mL Insufficiency: 20 - 29 ng/mL Optimal: > or = 30 ng/mL For 25-OH Vitamin D testing on patients on D2-supplementation and patients for whom quantitation of D2 and D3 fractions is required, the QuestAssureD(TM) 25-OH VIT D, (D2,D3), LC/MS/MS is recommended: order code 80606 (patients >2yrs). See Note 1 Note 1 For additional information, please refer to http://education.[employer]/faq/VQW069 (This link is being provided for informational/ educational purposes only.) Blood Structure of peripheral vein / Unknown Venipuncture / Unknown 06/01/2025 9:12 AM EDT 06/01/2025 9:54 AM EDT Narrative [facility] 06/02/2025 10:11 AM EDT [facility] Received Date: us Teofilo Nieves MD LAB BLOOD ORDERABLES Final Resul t [facility] [address] [facility] [address], [place] [address], [place] [phone] [employer] [facility] [address] [facility] [address], [place] [address], [place] [phone] * (ABNORMAL) Prolactin (06/01/2025 9:12 AM EDT) Prolactin 4.35(L) 4.79 - 23.30 ng/mL 06/01/2025 11:35 AM EDT [facility] Comment:This reference range is established for non- females only. Blood Structure of peripheral vein / Unknown Venipuncture / Unknown 06/01/2025 9:12 AM EDT 06/01/2025 9:54 AM EDT us Teofilo Nieves MD LAB BLOOD ORDERABLES Final Resul t [facility] [address] [place] [address], [place] * Chlamydia/Neisseria gonorrhoeae RNA (03/18/2025 9:35 AM EDT) Pathologist [facility] [place] Chlamydia trachomatis RNA, TMA NOT DETECTED NOT DETECTED 03/19/2025 6:21 AM EDT [employer] [facility] Neisseria Gonorrhoeae RNA, TMA NOT DETECTED NOT DETECTED 03/19/2025 6:21 AM EDT [employer] [facility] Comment: The analytical performance characteristics of this assay, when used to test SurePath(TM) specimens have been determined by [facility]. The modifications have not been cleared or approved by the FDA. This assay has been validated pursuant to the CLIA regulations and is used for clinical purposes. For additional information, please refer to https://education.[employer]/faq/TZN516 (This link is being provided for information/ educational purposes only.) Urine Voided urine specimen / Unknown Non-Blood Collection / Unknown 03/18/2025 9:35 AM EDT 03/18/2025 10:36 AM EDT Narrative [facility] - 03/19/2025 6:21 AM EDT [facility] Received Date:[id number] Teofilo Nieves MD LAB URINE ORDERABLES Final Resul t Performing Organization Address City/[facility]/ZIP Co de Phone Number [facility] [address] [facility] [address] [place] [address], [employer] [facility] [address] [facility] [address], [place] [address], * Hepatitis C Antibody w/Reflex to HCV RNA, Quantitative PCR (03/18/2025 9:35 AM EDT) Pathologist [facility] [place] Hepatitis C Antibody NON-REACT MICHEL NON-REACT MICHEL 03/19/2025 1:43 AM EDT [employer] Comment: HCV antibody was non-reactive. There is no laboratory evidence of HCV infection. In most cases, no further action is required. However, if recent HCV exposure is suspected, a test for HCV RNA (test code 65884) is suggested. For additional information please refer to http://education.[employer]/faq/TQS91c4 (This link is being provided for informational/ educational purposes only.) Blood Structure of peripheral vein / Unknown Venipuncture / Unknown 03/18/2025 9:35 AM EDT 03/18/2025 9:52 AM EDT Narrative [facility] - 03/19/2025 1:43 AM EDT [facility] Received Date:[id number] us Teofilo Nieves MD LAB BLOOD ORDERABLES Final Resul t Performing Organization Address City/[facility]/ZIP Co de Phone Number [address], [place] [address], [place] [phone] [employer] [address], [place] [address], [place] [phone] * HIV-1/2 Antigen/Antibodies 4th Generation w/Reflex (03/18/2025 9:35 AM EDT) HIV Final Interp See Comments 03/19/2025 2:54 AM EDT [employer] Comment: HIV Negative HIV-1 antigen and HIV-1/HIV-2 antibodies were not detected. There is no laboratory evidence of HIV infection. Blood Structure of peripheral vein / Unknown Venipuncture / Unknown 03/18/2025 9:35 AM EDT 03/18/2025 9:52 AM EDT Narrative [facility] - 03/19/2025 2:54 AM EDT [facility] Received Date:[id number] us Teofilo Nieves MD LAB BLOOD ORDERABLES Final Resul t Performing Organization Address City/[facility]/ZIP Co de Phone Number [facility] [address], [place] [address], [place] [phone] [employer] [facility] [address], [place] [address], [place] [phone] from Last 3 Months or Most Recently Relevant to Health Maintenance Insurance [employer] Care Teams Principle Industrial Hygienist Relationship Specialty Start Date End Date Val Carrillo [address] [place] [address] PCP - General 01/19/25
--- OUTSIDE RECORDS SUMMARY | 2025-08-03 08:13 | XMS_ITS | Encounter Summary ---
Author Organization [facility] Address [address] [place] [address] Care Team Providers Care Dial Screw Assembler Name Role Phone Val Carrillo Primary Care Provider [phone] Encounter Details Date Type Department Care Team (Late st Contact Info) Description 06/23/2025 Results Follow-Up [facility] - Second Floor [address] [place] [address] Heather Nieves MD [address] [place] [id number] Social History Tobacco Use Types Packs/Day Years [...] Info) Description 08/03/2025 1:00 PM EST Telehealth [facility] Maternal Medicine [address] [place] [address] Network Diagnostic Support Specialist: Janice King documented as of this encounter Visit Diagnoses Not on filedocumented in this encounter Care Teams Dial Screw Assembler Relationship Specialty Start Date End Date Val Carrillo [address] [address] PCP - General 01/19/25 documented as of this encounter
== END 2025-08-03 09:00 | disposition home or self-care (01) ==
LOC: HO.ENCR 07:59
PROVIDERS: Visit Provider Internal Medicine Endocrinology, Diabetes & Metabolism
DX: E22.1 Hyperprolactinemia (principal)
CPT/HCPCS: 99204

== ENCOUNTER 2025-08-11 08:13 | Outpatient (REF) | payer OTHER, SELFPAY | END 2025-08-11 08:14 | disposition home or self-care (01) | LOC: HO.LNP 08:13 | PROVIDERS: Visit Provider Advanced Practice Midwife | DX: Z01.419 Encounter for gynecological examination (general) (routine) without abnormal findings (principal); Z71.82 Exercise counseling; Z98.51 Tubal ligation status | CPT/HCPCS: 87626; 88175 ==

== ENCOUNTER 2025-08-11 08:13 | Outpatient (AMB) | payer OTHER, SELFPAY ==
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
[2025-08-11 08:18] VITALS: BP 122/72; BMI 26.4
--- OUTSIDE RECORDS SUMMARY | 2025-08-11 08:28 | XMS_ITS | Clinical Summary ---
Author Organization [facility] Address [address] [place] [address] Care Team Providers Care Art Consultant Name Role Phone MatthewshanonDago mesaa Primary Care Provider [phone] Allergies No known active allergies Medications metFORMIN [...] option of being discarded, used for quality process auditor, or used for research. Reviewed expected euploid [...] randomized controlled trial. Reproductive Biology and Endocrinology, 16(1), 88.) - Even though the effect of CoQ10 [...] Encounters Date Type Department Care Team Description 08/03/2025 1:00 PM EST Telehealth [facility] Maternal Medicine [address] [place] [address] Building Construction Professor: Solange Coles MD Encounter for preconception consultation (Primary Dx); Pre-diabetes; Hyperprolactinemia (HCC) 08/02/2025 Refill [facility] [address] [place] [address] - [place] [address] Building Construction Professor: Teofilo Nelson MD 07/01/2025 Business e via [place] Message [facility] [address] [place] [address] Building Construction Professor: Dilma Cortes, RN Repeat Prolactin 06/24/2025 Refill [facility] [address] [place] [address] Building Construction Professor: Teofilo Nelson MD 06/23/2025 [place] [address] Teofilo Nieves MD 06/22/2025 9:49 AM EDT - 06/22/2025 11:59 PM EDT Hospital Encounter [address] [address] Encounter for investigation and testing for procreative management Discharge Disposition: Home or Self Care (01) 06/17/2025 9:00 AM EDT Telehealth [facility] [address] [place] [address] Building Construction Professor: Teofilo Nelson MD Hyperprolactinemia (HCC) (Primary Dx); Prediabetes; Female infertility of tubal origin; History of right oophorectomy; Diminished ovarian reserve; Encounter for male factor infertility in female patient; Encounter for preconception consultation 06/17/2025 Business e via [place] Message [facility] [address] [place] [address] Building Construction Professor: Dilma Cortes, RN Following Up 06/05/2025 Refill [facility] IVF [address] [place] [address] Building Construction Professor: Teofilo Nelson MD Vitamin D deficiency 06/03/2025 Refill [facility] IVF [address] [place] [address] Building Construction Professor: Teofilo Nelson MD Vitamin D deficiency 06/02/2025 Results Follow-Up [facility] [address] [place] [address] Building Construction Professor: Teofilo Nelson MD 06/01/2025 Orders Only [facility] IVF [address] [place] [address] Building Construction Professor: Teofilo Nelson MD Hyperprolactinemia (HCC) (Primary Dx) 06/01/2025 Results Follow-Up [address] [address] Building Construction Professor: Teofilo Nelson MD 05/24/2025 myChart Message [facility] [address] [place] [address] Building Construction Professor: Dilma Cortes RN Outstanding Testing from Last 3 Months Social History Tobacco [...] of 2 - 13+ 2-dose series) 1998 Pneumococcal Vaccine: Pediat maricel (0-5 Years) and At-Risk Patients (6-50 Years) (1 of 2 - PCV) 2004 DTaP,Tdap,and Td Vaccines (1 - Tdap) 10/29/2007 Alcohol/Substance Use Screening 08/25/2024 Depression Screening and Follow-Up 08/25/2024 Social Drivers of Health Annual Screening 08/25/2024 Influenza Vaccine (#1) 2025 09/03/2024, 2022 COVID-19 Vaccine ( season) 2025 Chlamydia Screening 03/18/2026 03/18/2025 Hepatitis B Vaccines Completed 03/05/2025, 02/03/20 HIV Screening Completed 03/18/2025 Hepatitis C Screening Completed 03/18/2025 Procedures * Due to [place] [employer] law, this organization might not be sharing [...] to Health Maintenance Results * Due to [place] [employer] law, this organization might not be sharing [...] 06/22/2025 08:54 pm) PATIENT INFO: ID #: [id number] : [birth year] (39 yrs)(F) Name: CANDI CHAU Visit Date: 06/22/2025 10:21 am PERFORMED BY: Attending: Thao Mg MD Performed By: Nomi Orozco RDMS Referred By: TEOFILO NIEVES [place] [facility] [place] [place]ICE(S) PROVIDED: Hysterosonogram 88883 Cath/Injection for Hysterosonogram 37711 INDICATIONS: Encounter for other procreative investig Z31.49 [...] Volume(ml) Comments 1 0.52 2 0.38 COMMENTS: DETECTIVE AND INTELLIGENCE ANALYST Scan-saline sonohysterogram Description of Procedure: The patient [...] Signed Final Report 06/22/2025 08:54 pm Procedure Thao Carter MD - 06/22/2025 Female Pelvis (Signed Final 06/22/2025 08:54 pm) PATIENT INFO: ID #: [id number] : [birth year] (39yr)(F) Name: CANDI CASTELLANOROSIERS Visit Date: 06/22/2025 10:21 am PERFORMED BY: Attending: Thao Mg MD Performed By: Nomi Orozco RDMS Referred By: TEOFILO NIEVES Location: [facility] [place]roductive Endocrinology SERVICE(S) PROVIDED: Hysterosonogram 30042 Cath/Injection for Hysterosonogram 10079 INDICATIONS: Encounter for other procreative investig Z31.49 [...] Volume(ml) Comments 1 0.52 2 0.38 COMMENTS: DETECTIVE AND INTELLIGENCE ANALYST Scan-saline sonohysterogram Description of Procedure: The patient [...] - 100 ng/mL 06/02/2025 10:11 AM EDT [facility] Comment: Vitamin D Status 25-OH Vitamin D: Deficiency: <20 ng/mL Insufficiency: 20 - 29 ng/mL Optimal: > or = 30 ng/mL For 25-OH Vitamin D testing on patients on D2-supplementation and patients for whom quantitation of D2 and D3 fractions is required, the QuestAssureD(TM) 25-OH VIT D, (D2,D3), LC/MS/MS is recommended: order code [id number] (patients >2yrs). See Note 1 Note 1 For additional information, please refer to http://education.ZEB/faq/FGH239 (This link is being provided for informational/ educational purposes only.) Blood Structure of peripheral vein / Unknown Venipuncture / Unknown 06/01/2025 9:12 AM EDT 06/01/2025 9:54 AM EDT Narrative [facility] 06/02/2025 10:11 AM EDT [facility] Received Date: Teofilo Nieves MD LAB BLOOD ORDERABLES Final Resul t Performing Organization Address City/[facility]/ZIP Co de Phone Number [facility] [address] [facility] [address]rd Floor, [place] [address], [place] [phone] [employer] [address] [facility], [place] [address], [place] [phone] * (ABNORMAL) Prolactin (06/01/2025 9:12 AM EDT) Prolactin 4.35(L) 4.79 - 23.30 ng/mL 06/01/2025 11:35 AM EDT [facility] Comment:This reference range is established for non- females only. Blood Structure of peripheral vein / Unknown Venipuncture / Unknown 06/01/2025 9:12 AM EDT 06/01/2025 9:54 AM EDT us Teofilo Nieves MD LAB BLOOD ORDERABLES Final Resul t [facility] [address] [place] [address], * Chlamydia/Neisseria gonorrhoeae RNA (03/18/2025 9:35 AM EDT) Chlamydia trachomatis RNA, TMA NOT DETECTED NOT DETECTED 03/19/2025 6:21 AM EDT [employer] [facility] Neisseria Gonorrhoeae RNA, TMA NOT DETECTED NOT DETECTED 03/19/2025 6:21 AM EDT [employer] [facility] Comment: The analytical performance characteristics of this assay, when used to test SurePath(TM) specimens have been determined by [employer]. The modifications have not been cleared or approved by the FDA. This assay has been validated pursuant to the CLIA regulations and is used for clinical purposes. For additional information, please refer to https://[employer].AppTweak.com/faq/SFN662 (This link is being provided for information/ educational purposes only.) Urine Voided urine specimen / Unknown Non-Blood Collection / Unknown 03/18/2025 9:35 AM EDT 03/18/2025 10:36 AM EDT [facility] - 03/19/2025 6:21 AM EDT [facility] Received Date:[id number] Teofilo Nieves MD LAB URINE ORDERABLES Final Resul t [facility] [address], [place] [address], [employer] [address], [place] [address], * Hepatitis C Antibody w/Reflex to HCV RNA, Quantitative PCR (03/18/2025 9:35 AM EDT) Hepatitis C Antibody NON-REACT MICHEL NON-REACT MICHEL 03/19/2025 1:43 AM EDT [employer] [facility] Comment: HCV antibody was non-reactive. There is no laboratory evidence of HCV infection. In most cases, no further action is required. However, if recent HCV exposure is suspected, a test for HCV RNA (test code 75160) is suggested. For additional information please refer to http://education.AppTweak.com/faq/MJJ40v3 (This link is being provided for informational/ educational purposes only.) Blood Structure of peripheral vein / Unknown Venipuncture / Unknown 03/18/2025 9:35 AM EDT 03/18/2025 9:52 AM EDT Narrative [facility] 03/19/2025 1:43 AM EDT [facility] Received Date:[id number] us Teofilo Nieves MD LAB BLOOD ORDERABLES Final Resul t [facility] [address] [facility] [address] [facility], [place] [address], [place] [phone] [employer] [facility] [address], [place] [address], [place] [phone] * HIV-1/2 Antigen/Antibodies 4th Generation w/Reflex (03/18/2025 9:35 AM EDT) HIV Final Interp See Comments 03/19/2025 2:54 AM EDT [facility] Comment: HIV Negative HIV-1 antigen and HIV-1/HIV-2 antibodies were not detected. There is no laboratory evidence of HIV infection. Blood Structure of peripheral vein / Unknown Venipuncture / Unknown 03/18/2025 9:35 AM EDT 03/18/2025 9:52 AM EDT [facility] - 03/19/2025 2:54 AM EDT [facility] Received Date:[id number] us Teofilo Nieves MD LAB BLOOD ORDERABLES Final Resul t Performing Organization Address City/[facility]/ZIP Co de Phone Number [facility] [address] [facility] [address], [place] [address], [place] [phone] [facility] [address] [facility] [address], [place] [address], [place] [phone] from Last 3 Months or Most Recently Relevant to Health Maintenance Insurance [employer] Care Teams Art Consultant Relationship Specialty Start Date End Date Val Carrillo [address] [place] [address] PCP - General 01/19/25
--- OUTSIDE RECORDS SUMMARY | 2025-08-11 08:28 | XMS_ITS | Encounter Summary ---
Author Organization [facility] Address [address] [place] [address] Care Team Providers Care Truck Shop Mechanic Name Role Phone Val Carrillo Primary Care Provider [phone] Reason for Visit * Reason Comments Med Refill Encounter Details Date Type Department Care Team (Late st Contact Info) Description 08/02/2025 Refill [facility] [address] [place] [address] [place] [address] Cloth Packer: Heather Nelson MD [address] [place] [address] Social History Tobacco Use Types Packs/Day Years [...] on filedocumented in this encounter Care Teams Truck Shop Mechanic Relationship Specialty Start Date End Date Val Carrillo [address] [place] [address] PCP - General 01/19/25 documented as of this encounter
--- OUTSIDE RECORDS SUMMARY | 2025-08-11 08:28 | XMS_ITS | Encounter Summary ---
Author Organization [facility] Address [address] [place] [address] Care Team Providers Care Shop Supervisor Name Role Phone Val Carrillo Primary Care Provider [phone] Encounter Details Date Type Department Care Team (Late st Contact Info) Description 06/23/2025 Results Follow-Up [facility] - Second Floor [address] [place] [address] Heather Nieves MD [address] [place] [address] Social History Tobacco Use Types Packs/Day Years [...] on filedocumented in this encounter Care Teams Shop Supervisor Relationship Specialty Start Date End Date Val Carrillo [address] [place] [address] PCP - General 01/19/25 documented as of this encounter
--- OUTSIDE RECORDS SUMMARY | 2025-08-11 08:28 | XMS_ITS | Patient Health Record ---
Author Organization [facility] Address [address] [place] [address] Support Name Relationship Address Phone Daly Candi [...] Date Coverage End Date [employer] [address] [address] [place] [address] [id number] Candi Pulliam Self - patient is the insured Medical (General) History Medical History History ICD Code Ovarian cysts 8 yrs ago Inactive asthma UTI
== END 2025-08-11 08:48 | disposition home or self-care (01) ==
LOC: HO.HWSM 08:13
PROVIDERS: Visit Provider Advanced Practice Midwife
DX: Z01.419 Encounter for gynecological examination (general) (routine) without abnormal findings (principal); Z12.39 Encounter for other screening for malignant neoplasm of breast; Z12.4 Encounter for screening for malignant neoplasm of cervix
CPT/HCPCS: 99395; 99459